=== PATIENT | female | born 1965 | race Caucasian/White ===

== ENCOUNTER 2017-09-02 00:11 | Inpatient (IN) ==
--- NOTE | 2017-09-02 00:31 | Emergency Department Report ---
General Adult HPI - General Chief complaint: Abdominal Pain Stated complaint: abd pain, bowel obstruction Time Seen by Provider: 09/02/17 00:29 Source: patient, family Mode of arrival: wheelchair Limitations: no limitations - History of Present Illness HPI narrative: 51-year-old female presents to the emergency department with a chief complaint of generalized upper abdominal discomfort. Patient was at home when her symptoms began around 4 PM. She denies trauma, travel, poorly prepared food, or recent antibiotic use. She describes the pain as severe. Pain is sharp. No radiation. She does not note any exacerbating or remitting factors. Patient does note history of similar symptoms in the past with small bowel obstruction. She was at home when her symptoms began. Symptoms have been persistent in nature since onset. No other complaints or associated symptoms at this time. - Related Data Home Medications Medication Instructions Recorded Confirmed Estrogens, Conjugated [Premarin] 0.625 mg PO DAILY #0 03/04/13 09/02/17 Bystolic (nebivolol) 5 mg tablet 5 mg PO DAILY tab 06/11/17 09/02/17 benazepril 5 mg tablet 20 mg PO DAILY tab 06/11/17 09/02/17 canagliflozin 100 mg tablet 300 mg PO QAM 06/11/17 09/02/17 Levofloxacin [Levaquin] 500 mg PO DAILY 09/02/17 09/02/17 predniSONE [Prednisone] 20 mg PO DAILY 09/02/17 09/02/17 Allergies Allergy/AdvReac Type Severity Reaction Status Date / Time latex Allergy Severe SWELLING Verified 06/11/17 13:49 hydrocodone Allergy Unknown ITCHING Verified 06/11/17 13:49 oxycodone AdvReac Intermediate VOMITS Verified 06/11/17 13:49 morphine AdvReac Unknown NAUSEA AND Verified 06/11/17 13:49 VOMITING Review of Systems Constitutional: Denies: fever, chills Eyes: Denies: eye pain, vision change ENT: Denies: ear pain, throat pain Cardiovascular: Denies: chest pain, palpitations Respiratory: Denies: cough, dyspnea Gastrointestinal: Reports: abdominal pain, nausea. Denies: vomiting, diarrhea Genitourinary: Denies: frequency, hematuria Musculoskeletal: Denies: back pain, arthralgia Integumentary: Denies: erythema, rash Neurological: Denies: headache, numbness Endocrine: Denies: polydipsia, polyuria Hematological/Lymphatic: Denies: easy bruising, lymphadenopathy Allergic/Immunologic: Denies: facial swelling, urticaria PFSH Patient Stated Medical History Hypertension Yes Diabetes Mellitus Type 2 Yes Post Menopausal Yes Now No Clinic Medical History (Last Updated 06/11/17 @ 13:54 by Kenia Rick RN) History of basal cell carcinoma (BCC) (Resolved Medical) Nasal tip: 2005 Left ala: 2013 High cholesterol (Chronic Medical) Arthritis (Chronic Medical) History of kidney stones (Chronic Medical) Hypertension (Chronic Medical) Surgical History: Hysterectomy: Staged for endometriosis. Oopherectomy. C- Section: 1984, 1989. Colectomy for diverticulitis: 2004. Excision BCC nasal tip: 2005. Breast Reductioin: 1983. Mohs excision BCC with bilobed flap closure, left ala: 03/10/2014 Family History: Family History (Last Updated 06/11/17 @ 13:58 by Kenia Rick RN) Mother Drug abuse Cancer Heart disease Hypertension Stroke High cholesterol Glaucoma Sister Drug abuse Hypertension High cholesterol Maternal Grandmother High cholesterol - Social History Smoking status: Never smoker Substance use type: does not use Alcohol intake frequency: does not drink Physical Exam - Limitations Limitations: no limitations - General General appearance: alert, in distress (Mild distress secondary to pain.) - Normal Exams: Head:: Normocephalic without trauma Eyes:: Pupils are PERRLA w/ EOMI, No scleral icterus, irritation, or foreign bodies noted ENMT:: No facial trauma, nasal exudates, pharyngeal erythema, or exudates are noted Dental: No fractured, loose, or missing teeth noted Neck:: Full range of motion, without adenopathy, JVD, bruits or thyromegaly Chest/Respirations:: Clear all de luna, with good airflow, and symmetry bilaterally Cardiovascular:: Regular rate and rhythm, without murmur or gallop, Pulses 2+ all extremities, capillary refill, <2 seconds all extremities Abdomen:: Bowel sounds positive (Soft. Generalized abdominal tenderness to palpation without rebound or guarding. NO CVAT. ), non-distended, no hepatosplenomegaly, masses or bruits noted Lymphatic:: No lymphadenopathy, or lymphedema noted Musculoskeletal:: No tenderness, or deformity noted, good range of motion, all extremities Integumentary:: No rashes, hives, or bruising noted, hair and nails, without abnormality Neurological:: Patient is alert, and oriented, cranial nerves, motor/sensory/ cerebellar, exams w/o gross deficits, to observation Psychiatric:: Patient exhibits, appropriate attention, emotion and affect Course Vital Signs Pulse Rate 68 09/02/17 00:16 Respiratory Rate 20 09/02/17 00:16 Blood Pressure 178/84 H 09/02/17 00:16 Pulse Oximetry 99 09/02/17 00:16 Temperature 98.5 F 09/02/17 04:13 Pulse Rate 71 09/02/17 04:13 Respiratory Rate 18 09/02/17 04:13 Blood Pressure 145/70 H 09/02/17 04:13 Pulse Oximetry 97 09/02/17 04:13 Medical Decision Making - [facility] Narrative Medical decision making narrative: Labs / imaging were discussed in detail with the patient and family and questions are answered. Patient was given 1 L normal saline intravenously. She was given parental narcotic and antiemetic medications with some improvement of symptoms. She was given Toradol 30 mg IV 1 with more improvement of symptoms. Patient declines nasogastric tube insertion. She is discussed with Dr. Bedolla of the hospitalist service and admitted to her service in improved condition. Dr. Bedolla will perform her own surgical consultation to Dr. Mendoza who is the patient's surgeon. Patient is in agreement with the current plan of management. She is admitted to the hospital in improved condition. No further orders from accepting or consulting physicians who were in agreement with the current plan of management. Temperature: 98.4 F. - Differential Diagnosis SBO, Pancreatitis, UTI, Metabolic disorder - Lab Data Result diagrams: 09/02/17 00:32 09/02/17 00:32 Lab Results 09/02/17 09/02/17 09/02/17 Range/Units 00:32 00:32 00:32 WBC 14.6 H (4.5-11.0) T/MM3 RBC 5.15 (4.00-5.20) M/MM3 Hgb 15.5 (12-16) GM/DL Hct 45.8 (36-46) % MCV 88.9 (80-100) UM3 MCH 30.1 (26-34) UUG MCHC 33.8 (31-37) GM/DL RDW Std Deviation 42.6 (36.9-50.2) FL Plt Count 363 (130-400) T/MM3 MPV 10.0 (9.4-12.4) UM3 Immature Gran % (Auto) 0.8 H (0.0-0.5) % Neut % (Auto) 60.0 (33-66) % Lymph % (Auto) 31.5 (23-45) % [place] % (Auto) 7.1 (0-9.0) % Eos % (Auto) 0.3 (0-4) % Baso % (Auto) 0.3 (0-2) % Neut # (Auto) 8.7 H (1.8-7.7) T/MM3 Lymph # (Auto) 4.6 (1-4.8) T/MM3 [place] # (Auto) 1.0 H (0-0.8) T/MM3 Eos # (Auto) 0.0 (0-0.5) T/MM3 Baso # (Auto) 0.1 (0-0.2) T/MM3 Abs Immat Gran (auto) 0.12 H (0.00-0.03) T/MM3 Turbidity < 20 (0-20) Sodium 145 H (134-144) MEQ/L Potassium 3.7 (3.6-5) MEQ/L Chloride 106 (98-107) MEQ/L Carbon Dioxide 24 (22-30) MEQ/L Anion Gap 15 (5-15) MEQ/L BUN 13.0 (7-17) MG/DL Creatinine 0.7 (0.7-1.2) MG/DL GFR Calculation 88 BUN/Creatinine Ratio 19 (6-26) RATIO Glucose 102 (65-110) MG/DL Calculated Osmolality 279 (261-280) MOSM/KG Calcium 9.6 (8.4-10.2) MG/DL Total Bilirubin 0.40 (0.20-1.30) MG/DL Icterus Index < 2 (0-7) AST 23 (14-36) U/L ALT 44 (9-52) U/L Alkaline Phosphatase 87 (38-126) U/L Troponin I < 0.012 (0-0.12) ng/ml Total Protein 7.6 (6.3-8.2) G/DL Albumin 4.7 (3.5-5.0) G/DL Globulin 2.9 (2.4-3.6) G/DL Albumin/Globulin Ratio 1.6 (1.1-2.2) RATIO Lipase 132 (23-300) U/L Specimen Hemolysis < 15 < 15 (0-25) Ur Collection Type Urine Color (YELLOW) Urine Clarity Urine pH (5.0-8.0) Ur Specific [place] (1.015-1.025) Urine Protein (NEGATIVE) Urine Glucose (UA) (NEGATIVE) Urine Ketones (NEGATIVE) Urine Occult Blood (NEGATIVE) Urine Nitrate (NEGATIVE) Urine Bilirubin (NEGATIVE) Urine Urobilinogen (NORMAL) EU/DL Ur Leukocyte Esterase (NEGATIVE) Urinalysis Comment 09/02/17 Range/Units 02:34 WBC (4.5-11.0) T/MM3 RBC (4.00-5.20) M/MM3 Hgb (12-16) GM/DL Hct (36-46) % MCV (80-100) UM3 MCH (26-34) UUG MCHC (31-37) GM/DL RDW Std Deviation (36.9-50.2) FL Plt Count (130-400) T/MM3 MPV (9.4-12.4) UM3 Immature Gran % (Auto) (0.0-0.5) % Neut % (Auto) (33-66) % Lymph % (Auto) (23-45) % [place] % (Auto) (0-9.0) % Eos % (Auto) (0-4) % Baso % (Auto) (0-2) % Neut # (Auto) (1.8-7.7) T/MM3 Lymph # (Auto) (1-4.8) T/MM3 [place] # (Auto) (0-0.8) T/MM3 Eos # (Auto) (0-0.5) T/MM3 Baso # (Auto) (0-0.2) T/MM3 Abs Immat Gran (auto) (0.00-0.03) T/MM3 Turbidity (0-20) Sodium (134-144) MEQ/L Potassium (3.6-5) MEQ/L Chloride (98-107) MEQ/L Carbon Dioxide (22-30) MEQ/L Anion Gap (5-15) MEQ/L BUN (7-17) MG/DL Creatinine (0.7-1.2) MG/DL GFR Calculation BUN/Creatinine Ratio (6-26) RATIO Glucose (65-110) MG/DL Calculated Osmolality (261-280) MOSM/KG Calcium (8.4-10.2) MG/DL Total Bilirubin (0.20-1.30) MG/DL Icterus Index (0-7) AST (14-36) U/L ALT (9-52) U/L Alkaline Phosphatase (38-126) U/L Troponin I (0-0.12) ng/ml Total Protein (6.3-8.2) G/DL Albumin (3.5-5.0) G/DL Globulin (2.4-3.6) G/DL Albumin/Globulin Ratio (1.1-2.2) RATIO Lipase (23-300) U/L Specimen Hemolysis (0-25) Ur Collection Type Urine, void-cc/notcc Urine Color Yellow (YELLOW) Urine Clarity Clear Urine pH 5.5 (5.0-8.0) Ur Specific [place] 1.015 (1.015-1.025) Urine Protein Negative (NEGATIVE) Urine Glucose (UA) 2+ A (NEGATIVE) Urine Ketones Negative (NEGATIVE) Urine Occult Blood Trace-lysed (NEGATIVE) Urine Nitrate Negative (NEGATIVE) Urine Bilirubin Negative (NEGATIVE) Urine Urobilinogen 0.2 (NORMAL) EU/DL Ur Leukocyte Esterase Negative (NEGATIVE) Urinalysis Comment Microscopic not ind. - Radiology Data CT ABD/PELVIS: Fatty liver. Rectosigmoid anastomotic sutures seen before. Fluid distention mid to distal small bowel with fecalization with depression very distal small bowel with apparent transition zone in the posterior pelvis. Similar to prior exam with small bowel obstruction. No mass. Questionable minimal thickening versus adhesion. - EKG Data EKG #1 EKG results narrative: Sinus bradycardia. 55 bpm. No STEMI. Disposition Clinical Impression: Small bowel obstruction Disposition: 02 To [facility] Condition: Improved Time of Disposition: 03:00 (Admit. Dr. Bedolla. ) - Seen By: physician
[2017-09-02] MEDS: SALINE FLUSH 10ml SYRINGE IVF PRN ×4 (00:32→04:26)
[2017-09-02] MEDS ORDERED: NS 1,000 ML IV ONE (00:38)
[2017-09-02] MEDS ORDERED: FentaNYL 100 MCG/2 ML INJECTION IVP ONE ×3 (00:38→04:19)
[2017-09-02] MEDS ORDERED: ONDANSETRON 4 MG/2 ML INJECTION IVP ONE ×2 (00:38→03:09)
--- OUTSIDE RECORDS SUMMARY | 2017-09-02 01:07 | External Medical Summary | Referral Summary ---
:1965 Author Organization [facility] Address [address] [place] [address] [place] [address] Care Team Providers Name Role Phone Jim Issa Primary Care Physician Encounter VC Date(s): 10/26/15 - 10/26/15 [facility] [place] [address] [place] Discharge Disposition: 01-Home or Self Care Attending Physician: Jim Issa MD Admitting Physician: Jim Issa MD Vital Signs Most recent to oldest [Reference Range]: 1 Blood Pressure [90-140/60-90 mmHg] 122/78 mmHg (10/26/15 2:05 PM) Problem List Condition Effective Dates Status Health Status Informant Abd pain, CT thickening of terminal 06/11/13 Resolved ileum(Confirmed) Acute sinusitis(Confirmed) Active Allergic rhinitis(Confirmed) Resolved Allergies(Confirmed) Resolved Angina(Confirmed) Resolved Chicken pox(Confirmed) Resolved Depression(Confirmed) Resolved Essential hypertension Active (disorder)(Confirmed) Pain in both feet(Confirmed) Active Hay fever(Confirmed) Resolved Hyperlipidemia(Confirmed) Resolved Hypertension(Confirmed) Resolved Incontinence(Confirmed) Resolved Insomnia(Confirmed) Resolved IBS (irritable bowel Active syndrome)(Confirmed) Chronic joint pain(Confirmed) Active Kidney stones(Confirmed) Resolved Menopausal symptoms(Confirmed) Resolved Obesity(Confirmed) Active patient Overweight(Confirmed) Resolved Sinus Infections(Confirmed) Resolved Skin cancer(Confirmed) Resolved Trigonitis(Confirmed) Resolved Allergies, Adverse Reactions, Alerts Substance Reaction Severity Status Latex1 Swelling Active morphine Nausea/Vomiting Active 1of eyes Medications Alocril 2% ophthalmic solution See Instructions, INSTILL ONE DROP TO EACH EYE TWICE A DAY, # 5 unknown unit, eRx: [facility] #[id number], INSTILL ONE DROP TO EACH EYE TWICE A DAY Start Date: 03/29/14 Status: OrderedLipitor 10 mg oral tablet See Instructions, TAKE ONE TABLET BY MOUTH DAILY, # 90 tabs, eRx: [facility] #[id number], TAKE ONETABLET BY MOUTH DAILY Start Date: 07/25/15 Status: OrderedLotrel 10 mg-20 mg oral capsule See Instructions, TAKE ONE CAPSULE BY MOUTH DAILY, # 90 caps, eRx: [facility] #[id number], TAKE ONE CAPSULE BY MOUTH DAILY Start Date: 08/17/15 Status: OrderedMiraLax oral powder for reconstitution 17 g, Oral, Daily, dissolve in water before taking, # 255 g, 0 Refill(s) Start Date: 10/10/15 Status: OrderedNeurontin 100 mg oral capsule 100 mg 1 caps, Oral, TID, # 90 caps, 2 Refill(s), Pharmacy: [facility] # [id number], 1 caps Oral TID Start Date: 10/26/15 Status: OrderedprednisoLONE 5 mg oral tablet 5 mg 1 tabs, Oral, Daily, # 30 tabs, 1 Refill(s), Pharmacy: [facility] # [id number], to start on 11/10/15, 1 tabs Oral Daily Start Date: 10/10/15 Status: OrderedpredniSONE 5 mg oral tablet See Instructions, 4 tabs oral daily x7 days, then 2 tabs oral daily x7 days, then 5mg oral daily, # 56 tabs, 0 Refill(s), Pharmacy: [facility] #[id number] , 4 tabs oral daily x7 days, then 2 tabs oraldaily x7 days, then 5mg oral daily Start Date: 10/10/15 Stop Date: 11/09/15 Status: OrderedPremarin 0.625 mg oral tablet See Instructions, TAKE ONE TABLET BY MOUTH DAILY, # 90 tabs, 1 Refill(s), eRx: [facility] #[id number], TAKE ONE TABLET BY MOUTH DAILY Start Date: 05/16/15 Status: OrderedProventil HFA 90 mcg/inh inhalation aerosol See Instructions, as needed for wheezing, 1 puffs Inhalation q4-6hr, # 1 Each, 2 Refill(s), Pharmacy: [facility] #[id number] Start Date: 07/09/14 Status: OrderedRhinocort Aqua 32 mcg/inh nasal spray See Instructions, SPRAY ONE SPRAY IN EACH NOSTRIL ONCE DAILY, # 8.6 sprays, eRx : [facility] #[id number], SPRAY ONE SPRAY IN EACH NOSTRIL ONCE DAILY Start Date: 09/13/15 Status: Ordered Results No data available for this section Immunizations No data available for this section Procedures Procedure Date Related Diagnosis Body Site Laparoscopic cholecystectomy1 07/22/14 Colonoscopy2 06/11/13 removal of ganglion cyst Rt foot3 03/04/12 Cystoscopy 05/06/09 RT Carpal tunnel release 01/26/09 Hysterectomy 1991 Breast reduction 1983 Appendectomy 1977 LT Carpal tunnel release 1Biliary [id number]/biopsy tubulovillous adenoma no Crohn's repeat [id number] Borja Social History Social History Type Response Smoking Status Never smoker Assessment and Plan No data available for this section
--- OUTSIDE RECORDS SUMMARY | 2017-09-02 01:07 | External Medical Summary | Referral Summary ---
:1965 Author [facility] Address [address] [place] [address] [place] [address] Care Team Providers Name Role Phone Jim Issa Primary Care Physician Encounter VC Date(s): 03/23/15 - 03/23/15 [facility] [place] [address] [place] Discharge Disposition: 01-Home or Self Care Attending Physician: Jim Issa MD Admitting Physician: Jim Issa MD Vital Signs Most recent to oldest [Reference Range]: 1 Blood Pressure [90-140/60-90 mmHg] 124/80 mmHg (03/23/15 1:07 PM) Problem List Condition Effective Dates Status Health Status Informant Abd pain, CT thickening of terminal 06/11/13 Resolved ileum(Confirmed) Acute sinusitis(Confirmed) Active Allergic rhinitis(Confirmed) Resolved Allergies(Confirmed) Resolved Angina(Confirmed) Resolved Chicken pox(Confirmed) Resolved Depression(Confirmed) Resolved Essential hypertension Active (disorder)(Confirmed) Hay fever(Confirmed) Resolved Hyperlipidemia(Confirmed) Resolved Hypertension(Confirmed) Resolved Incontinence(Confirmed) Resolved Insomnia(Confirmed) Resolved IBS (irritable bowel Active syndrome)(Confirmed) Kidney stones(Confirmed) Resolved Menopausal symptoms(Confirmed) Resolved Obesity(Confirmed) Active patient Overweight(Confirmed) Resolved Sinus Infections(Confirmed) Resolved Skin cancer(Confirmed) Resolved Trigonitis(Confirmed) Resolved Allergies, Adverse Reactions, Alerts Substance Reaction Severity Status Latex1 Swelling Active morphine Nausea/Vomiting Active 1of eyes Medications Alocril 2% ophthalmic solution See Instructions, INSTILL ONE DROP TO EACH EYE TWICE A DAY, # 5 unknown unit, eRx: [facility] #[id number], INSTILL ONE DROP TO EACH EYE TWICE A DAY Start Date: 03/29/14 Status: OrderedLasix 40 mg oral tablet See Instructions, TAKE ONE TABLET BY MOUTH EVERY DAY, # 90 tabs, 1 Refill(s), eRx: [facility] #[id number], TAKE ONE TABLET BY MOUTH EVERY DAY Start Date: 03/29/15 Status: OrderedLipitor 10 mg oral tablet See Instructions, TAKE ONE TABLET BY MOUTH DAILY, # 90 tabs, eRx: [facility] #[id number], TAKE ONETABLET BY MOUTH DAILY Start Date: 07/25/15 Status: OrderedLotrel 10 mg-20 mg oral capsule See Instructions, TAKE ONE CAPSULE BY MOUTH DAILY, # 90 caps, eRx: [facility] #[id number], TAKE ONE CAPSULE BY MOUTH DAILY Start Date: 08/17/15 Status: Orderedmeloxicam 7.5 mg oral tablet See Instructions, TAKE ONE TABLET BY MOUTH DAILY, # 90 tabs, 5 Refill(s), eRx: [facility] #[id number], TAKE ONE TABLET BY MOUTH DAILY Start Date: 01/17/15 Status: OrderedPremarin 0.625 mg oral tablet See Instructions, TAKE ONE TABLET BY MOUTH DAILY, # 90 tabs, 1 Refill(s), eRx: [facility] #[id number], TAKE ONE TABLET BY MOUTH DAILY Start Date: 05/16/15 Status: OrderedProventil HFA 90 mcg/inh inhalation aerosol See Instructions, as needed for wheezing, 1 puffs Inhalation q4-6hr, # 1 Each, 2 Refill(s), Pharmacy: [facility] #[id number] Start Date: 07/09/14 Status: OrderedRhinocort Aqua 32 mcg/inh nasal spray See Instructions, SPRAY ONE SPRAY IN EACH NOSTRIL ONCE DAILY, # 8.6 sprays, eRx : [facility] #[id number], SPRAY ONE SPRAY IN EACH NOSTRIL ONCE DAILY Start Date: 09/13/15 Status: OrderedTylenol PM See Instructions, as needed for sleep, 2 tabs at Bedtime (once a day), 0 Refill( s) Start Date: 04/21/15 Status: Ordered Results No data available for this section Immunizations No data available for this section Procedures Procedure Date Related Diagnosis Body Site Laparoscopic cholecystectomy1 07/22/14 Colonoscopy2 06/11/13 removal of ganglion cyst Rt foot3 03/04/12 Cystoscopy 05/06/09 RT Carpal tunnel release 01/26/09 Hysterectomy 1991 Breast reduction 1984 Appendectomy 1977 LT Carpal tunnel release 1Biliary sqgdviowfx7y/biopsy tubulovillous adenoma no Crohn's repeat [id number] Borja Social History Social History Type Response Smoking Status Never smoker Assessment and Plan Extracted from: Title: Ambulatory Patient Education Author: Jim Issa MD Date: Allergy Contact Dermatitis Contact dermatitis is a reaction to certain substances that touch the skin. Contact dermatitis can be either irritant contact dermatitis or allergic contact dermatitis. Irritant contact dermatitis does not require previous exposure to the substance for a reaction to occur. Allergic contact dermatitis only occurs if you have been exposed to the substance before. Upon a repeat exposure, your body reacts to the substance. CAUSES Many substances can cause contact dermatitis. Irritant dermatitis is most commonly caused by repeated exposure to mildly irritating substances, such as: Makeup. Soaps. Detergents. Bleaches. Acids. Metal salts, such as nickel. Allergic contact dermatitis is most commonly caused by exposure to: Poisonous plants. Chemicals (deodorants, shampoos). Jewelry. Latex. Neomycin in triple antibiotic cream. Preservatives in products, including clothing. SYMPTOMS The area of skin that is exposed may develop: Dryness or flaking. Redness. Cracks. Itching. Pain or a burning sensation. Blisters. With allergic contact dermatitis, there may also be swelling in areas such as the eyelids, mouth, or genitals. DIAGNOSIS Your caregiver can usually tell what the problem is by doing a physical exam. In cases where the cause is uncertain and an allergic contact dermatitis is suspected, a patch skin test may be performed to help determine the cause of your dermatitis. TREATMENT Treatment includes protecting the skin from further contact with the irritating substance by avoiding that substance if possible. Barrier creams, powders, and gloves may be helpful. Your caregiver may also recommend: Steroid creams or ointments applied 2 times daily. For best results, soak the rash area in cool water for 20 minutes. Then apply the medicine. Cover the area with a plastic wrap. You can store the steroid cream in the refrigerator for a "chilly" effect on your rash. That may decrease itching. Oral steroid medicines may be needed in more severe cases. Antibiotics or antibacterial ointments if a skin infection is present. Antihistamine lotion or an antihistamine taken by mouth to ease itching. Lubricants to keep moisture in your skin. Burow's solution to reduce redness and soreness or to dry a weeping rash. Mix one packet or tablet of solution in 2 cups cool water. Dip a clean washcloth in the mixture, wring it out a bit, and pu t it on the affected area. Leave the cloth in place for 30 minutes. Do this as often as possible throughout the day. Taking several cornstarch or baking soda baths daily if the area is too large to cover with a washcloth. Harsh chemicals, such as alkalis or acids, can cause skin damage that is like a burn. You should flush your skin for 15 to 20 minutes with cold water after such an exposure. You should also seek immedia te medical care after exposure. Bandages (dressings), antibiotics, and pain medicine may be needed for severely irritated skin. HOME CARE INSTRUCTIONS Avoid the substance that caused your reaction. Keep the area of skin that is affected away from hot water, soap, sunlight , chemicals, acidic substances, or anything else that would irritate your skin. Do not scratch the rash. Scratching may cause the rash to become infected. You may take cool baths to help stop the itching. Only take [id number] or prescription medicines as directed by your caregiver. See your caregiver for follow-up care as directed to make sure your skin is healing properly. SEEK MEDICAL CARE IF: Your condition is not better after 3 days of treatment. You seem to be getting worse. You see signs of infection such as swelling, tenderness, redness, soreness , or warmth in the affected area. You have any problems related to your medicines. Document Released: 06/21/2001 Document Revised: 09/15/2012 Document Reviewed: 11/27/2011 Exit[employer] Patient Information 2015 [email or web address]. This information is not intended to replace advice given to you by your health care provider. Make sure you discuss any questions you have with your health care provider. No follow up information was provided. Extracted from: Title: Office Visit Note Author: Jim Issa MD Date: 03/23/15 Assessment/Plan Acute contact dermatitis Clobetasol 0.05% Orders: clobetasol topical, 1 [facility], Topical, BID, Sparingly., # 30 g, 1 Refill (s), Pharmacy: [facility] #[id number]
--- OUTSIDE RECORDS SUMMARY | 2017-09-02 01:07 | External Medical Summary | Referral Summary ---
:1965 Author Organization [facility] Address [address] [place] [address] [place] [address] Care Team Providers Name Role Phone Jim Issa Primary Care Physician Encounter VC Date(s): 03/09/15 - 03/09/15 [facility] [address] [place] [phone] Discharge Diagnosis: Knee pain Discharge Disposition: 01-Home or Self Care Attending Physician: Jim Issa MD Admitting Physician: Jim Issa MD Vital Signs Most recent to oldest [Reference Range]: 1 Blood Pressure [90-140/60-90 mmHg] 124/76 mmHg (03/09/15 1:19 PM) Problem List Condition Effective Dates Status [...] # 5 unknown unit, eRx: [facility] #[id number], INSTILL ONE DROP TO EACH EYE TWICE A DAY Start Date: 03/29/14 Status: OrderedLasix 40 mg oral tablet See Instructions, TAKE ONE TABLET BY MOUTH EVERY DAY, # 90 tabs, 1 Refill(s), eRx: [facility] #[id number], TAKE ONE TABLET BY MOUTH EVERY DAY Start Date: 03/29/15 Status: OrderedLipitor 10 mg oral tablet See Instructions, TAKE ONE TABLET BY MOUTH DAILY, # 90 tabs, eRx: [facility] #[id number], TAKE ONETABLET BY MOUTH DAILY Start Date: 07/25/15 Status: OrderedLotrel 10 mg-20 mg oral capsule See Instructions, TAKE ONE CAPSULE BY MOUTH DAILY, # 90 caps, eRx: [facility] #[id number], TAKE ONE CAPSULE BY MOUTH DAILY Start Date: 08/17/15 Status: Orderedmeloxicam 7.5 mg oral tablet See Instructions, TAKE ONE TABLET BY MOUTH DAILY, # 90 tabs, 5 Refill(s), eRx: [facility] #[id number], TAKE ONE TABLET BY MOUTH DAILY Start Date: 01/17/15 Status: OrderedPremarin 0.625 mg oral tablet See Instructions, TAKE ONE TABLET BY MOUTH DAILY, # 90 tabs, 1 Refill(s), eRx: [facility] #[id number], TAKE ONE TABLET BY MOUTH DAILY Start Date: 05/16/15 Status: OrderedProventil HFA 90 mcg/inh inhalation aerosol See Instructions, as needed for wheezing, 1 puffs Inhalation q4-6hr, # 1 Each, 2 Refill(s), Pharmacy: [facility] #[id number] Start Date: 07/09/14 Status: OrderedRhinocort Aqua 32 mcg/inh nasal spray See Instructions, SPRAY ONE SPRAY IN EACH NOSTRIL ONCE DAILY, # 8.6 sprays, eRx : [facility] #[id number], SPRAY ONE SPRAY IN EACH NOSTRIL ONCE [...] Appendectomy 1977 LT Carpal tunnel release 1Biliary accvxbzlaf1e/biopsy tubulovillous adenoma no Crohn's repeat [id number] Borja Social History Social History Type Response Smoking Status Never smoker Assessment and Plan Extracted from: Title: Ambulatory Patient Education Author: Jim Issa MD Date: 03/14/15 Family Medicine Knee Pain The knee is the complex joint between your thigh and your lower leg. It is made up of bones, tendons, ligaments, and cartilage. The bones that make up the knee are: The femur in the thigh. The tibia and fibula in the lower leg. The patella or kneecap riding in the groove on the lower femur. CAUSES Knee pain is a common complaint with many causes. A few of these causes are: Injury, such as: A ruptured ligament or tendon injury. Torn cartilage. Medical conditions, such as: Gout Arthritis Infections Overuse, over training, or overdoing a physical activity. Knee pain can be minor or severe. Knee pain can accompany debilitating injury. Minor knee problems often respond well to self-care measures or get well on their own. More serious injuries may need medical intervention or even surgery. SYMPTOMS The knee is complex. Symptoms of knee problems can vary widely. Some of the problems are: Pain with movement and weight bearing. Swelling and tenderness. Buckling of the knee. Inability to straighten or extend your knee. Your knee locks and you cannot straighten it. Warmth and redness with pain and fever. Deformity or dislocation of the kneecap. DIAGNOSIS Determining what is wrong may be very straight forward such as when there is an injury. It can also be challenging because of the complexity of the knee. Tests to make a diagnosis may include: Your caregiver taking a history and doing a physical exam. Routine X-rays can be used to rule out other problems. X-rays will not reveal a cartilage tear. Some injuries of the knee can be diagnosed by: Arthroscopy a surgical technique by which a small video camera is inserted through tiny incisions on the sides of the knee. This procedure is used to examine and repair internal knee joint problems . Tiny instruments can be used during arthroscopy to repair the torn knee cartilage (meniscus). Arthrography is a radiology technique. A contrast liquid is directly injected into the knee joint. Internal structures of the knee joint then become visible on X-ray film. An MRI scan is a non X-ray radiology procedure in which magnetic de luna and a computer produce two- or three-dimensional images of the inside of the knee. Cartilage tears are often visible using an MRI scanner. MRI scans have largely replaced arthrography in diagnosing cartilage tears of the knee. Blood work. Examination of the fluid that helps to lubricate the knee joint (synovial fluid). This is done by taking a sample out using a needle and a syringe. TREATMENT The treatment of knee problems depends on the cause. Some of these treatments are: Depending on the injury, proper casting, splinting, surgery, or physical therapy care will be needed. Give yourself adequate recovery time. Do not overuse your joints. If you begin to get sore during workout routines, back off. Slow down or do fewer repetitions. For repetitive activities such as cycling or running, maintain your strength and nutrition. Alternate muscle groups. For example, if you are a weight telecommunicator, work the upper body on one day and the lower body the next. Either tight or weak muscles do not give the proper support for your knee. Tight or weak muscles do not absorb the stress placed on the knee joint. Keep the muscles surrounding the knee strong. Take care of mechanical problems. If you have flat feet, orthotics or special shoes may help. See your caregiver if you need help. Arch supports, sometimes with wedges on the inner or outer aspect of the heel, can help. These can shift pressure away from the side of the knee most bothered by osteoarthritis. A brace called an "diamond selector" brace also may be used to help ease the pressure on the most arthritic side of the knee. If your caregiver has prescribed crutches, braces, wraps or ice, use as directed. The acronym for this is STANFORD. This means protection, rest, ice, compression, and elevation. Nonsteroidal anti-inflammatory drugs (NSAIDs), can help relieve pain. But if taken immediately after an injury, they may actually increase swelling. Take NSAIDs with food in your stomach. Stop them if you develop stomach problems. Do not take these if you have a history of ulcers, stomach pain, or bleeding from the bowel. Do not take without your caregiver's approval if you have problems with flu id retention, heart failure, or kidney problems. For ongoing knee problems, physical therapy may be helpful. Glucosamine and chondroitin are pzwt-utr-epmfmzv dietary supplements. Both may help relieve the pain of osteoarthritis in the knee. These medicines are different from the usual anti-inflammatory dr ugs. Glucosamine may decrease the rate of cartilage destruction. Injections of a corticosteroid drug into your knee joint may help reduce the symptoms of an arthritis flare-up. They may provide pain relief that lasts a few months. You may have to wait a few paty hs between injections. The injections do have a small increased risk of infection, water retention, and elevated blood sugar levels. Hyaluronic acid injected into damaged joints may ease pain and provide lubrication. These injections may work by reducing inflammation. A series of shots may give relief for as long as 6 months. Topical painkillers. Applying certain ointments to your skin may help relieve the pain and stiffness of osteoarthritis. Ask your pharmacist for suggestions. Many over the-counter products are approved for temporary relief of arthritis pain. In some countries, doctors often prescribe topical NSAIDs for relief of chronic conditions such as arthritis and tendinitis. A review of treatment with NSAID creams found that they worked as well a s oral medications but without the serious side effects. PREVENTION Maintain a healthy weight. Extra pounds put more strain on your joints. Get strong, stay limber. Weak muscles are a common cause of knee injuries. Stretching is important. Include flexibility exercises in your workouts. Be smart about exercise. If you have osteoarthritis, chronic knee pain or recurring injuries, you may need to change the way you exercise. This does not mean you have to stop being active. If your knees ache after jogging or playing basketball, consider switching to swimming , water aerobics, or other low-impact activities, at least for a few days a week. Sometimes limiting high-impact activities will provide relief. Make sure your shoes fit well. Choose footwear that is right for your sport. Protect your knees. Use the proper gear for knee-sensitive activities. Use kneepads when playing volleyball or laying carpet. Buckle your seat belt every time you drive. Most shattered kneecaps occur in car accidents. Rest when you are tired. SEEK MEDICAL CARE IF: You have knee pain that is continual and does not seem to be getting better. SEEK IMMEDIATE MEDICAL CARE IF: Your knee joint feels hot to the touch and you have a high fever. MAKE SURE YOU: Understand these instructions. Will watch your condition. Will get help right away if you are not doing well or get worse. Document Released: 04/20/2008 Document Revised: 09/15/2012 Document Reviewed: 04/20/2008 ExitCare Patient Information [address] [facility]. This information is not intended to replace advice given to you by your health care provider. Make sure you discuss any questions you have with your health care provider. Heat Therapy Heat therapy can help ease achy, tense, stiff, and tight muscles and joints. Heat should not be used on new injuries. Wait at least 48 hours after the injury before using heat therapy. Heat also should not be used for discomfort or pain that occurs right after doing an activity. If you still have pain or stiffness 3 hours after finishing the activity, then heat therapy may be used. PRECAUTIONS High heat or prolonged exposure to heat can cause rivas. Be careful when using heat therapy to avoid burning your skin. If you have any of the following conditions, do not use heat until you have discussed heat therapy with your caregiver: Poor circulation. Healing wounds or scarred skin in the area being treated. Diabetes, heart disease, or high blood pressure. Numbness of the area being treated. Unusual swelling of the area being treated. Active infections. Blood clots. Cancer. Inability to communicate your response to pain. This can include young children and people with dementia. HOME CARE INSTRUCTIONS Moist heat pack Soak a clean towel in warm water, and squeeze out the extra water. The water temperature should be comfortable to the skin. Put the warm, wet towel in a plastic bag. Place a thin, dry towel between your skin and the bag. Put the heat pack on the area for 5 minutes, and check your skin. Your skin may be pink, but it should not be red. Leave the heat pack on the area for a total of 15 to 30 minutes. Repeat this every 2 to 4 hours while awake. Do not use heat while you are sleeping. Warm water bath Fill a tub with warm water. The water temperature should be comfortable to the skin. Place the affected body part in the tub. Soak the area for 20 to 40 minutes. Repeat as needed. Hot water bottle Fill the water bottle half full with hot water. Press out the extra air. Close the cap tightly. Place a dry towel between your skin and the bottle. Put the bottle on the area for 5 minutes, and check your skin. Your skin may be pink, but it should not be red. Leave the bottle on the area for a total of 15 to 30 minutes. Repeat this every 2 to 4 hours while awake. Electric heating pad Place a dry towel between your skin and the heating pad. Set the heating pad on low heat. Put the heating pad on the area for 10 minutes, and check your skin. Your skin may be pink, but it should not be red. Leave the heating pad on the area for a total of 20 to 40 minutes. Repeat this every 2 to 4 hours while awake. Do not lie on the heating pad. Do not fall asleep while using the heating pad. Do not use the heating pad near water. Contact with water can result in an electrical shock. SEEK MEDICAL CARE IF: You have blisters, redness, swelling, or numbness. You have any new problems. Your problems are getting worse. You have any questions or concerns. If you develop any problems, stop using heat therapy until you see your caregiver. MAKE SURE YOU: Understand these instructions. Will watch your condition. Will get help right away if you are not doing well or get worse. Document Released: 09/15/2012 Document Reviewed: 09/15/2012 ExitCare Patient Information 2015 [facility] [place]. This information is not intended to replace advice given to you by your health care provider. Make sure you discuss any questions you have with your health care provider. No follow up information was provided. Extracted from: Title: Office Visit Note Author: Jim Issa MD Date: 03/09/15 Assessment/Plan Knee pain Will set patient up for a MRI of the knee to rule out a torn meniscus. Ordered: Office Visit Level 3 Est 05706
--- OUTSIDE RECORDS SUMMARY | 2017-09-02 01:08 | External Medical Summary | Referral Summary ---
:1965 Author Organization [facility] Address [address] [place] [address] Care Team Providers Name Role Phone Issa Jim Suarez Primary Care Physician Encounter VC Date(s): 05/07/16 - 05/07/16 [facility] [address] [place] [address]- [place] Discharge Diagnosis: Status post right foot surgery Discharge Disposition: 01-Home or Self Care Attending Physician: Morgan Borja DPM Admitting Physician: Morgan Borja DPM Vital Signs Most recent to oldest [Reference Range]: 1 Respiratory Rate [14-20 br/min] 18 br/min (05/07/16 8:50 AM) Problem List Condition Effective Dates Status Health Status Informant Abd pain, CT thickening of terminal 06/11/13 Resolved ileum(Confirmed) Acute sinusitis(Confirmed) Active Allergic rhinitis(Confirmed) Resolved Allergies(Confirmed) Resolved Angina(Confirmed) Resolved Chicken pox(Confirmed) Resolved Depression(Confirmed) Resolved Essential hypertension Active (disorder)(Confirmed) Pain in both feet(Confirmed) Active Status post right foot Active surgery(Confirmed) Hay fever(Confirmed) Resolved Hyperlipidemia(Confirmed) Resolved Hypertension(Confirmed) Resolved Incontinence(Confirmed) Resolved Insomnia(Confirmed) Resolved IBS (irritable bowel Active syndrome)(Confirmed) Chronic joint pain(Confirmed) Active Kidney stones(Confirmed) Resolved Menopausal symptoms(Confirmed) Resolved Obesity(Confirmed) Active patient Overweight(Confirmed) Resolved Plantar fasciitis of right Active foot(Confirmed) Sinus Infections(Confirmed) Resolved Skin cancer(Confirmed) Resolved Trigonitis(Confirmed) Resolved Greater trochanteric bursitis of Active left hip(Confirmed) Allergies, Adverse Reactions, Alerts Substance Reaction Severity Status HYDROcodone Itching Active Latex1, 2 Swelling Active morphine Nausea/Vomiting Active 1latex rast test equals [id number] eyes Medications Alocril 2% ophthalmic solution See Instructions, INSTILL ONE DROP TO EACH EYE TWICE A DAY, # 5 unknown unit, eRx: [facility] #[id number], INSTILL ONE DROP TO EACH EYE TWICE A DAY Start Date: 03/31/16 Status: OrderedamLODIPine-benazepril 10 mg-20 mg oral capsule See Instructions, TAKE ONE CAPSULE BY MOUTH DAILY, # 90 caps, 1 Refill(s), eRx: [facility] #[id number], TAKE ONE CAPSULE BY MOUTH DAILY Start Date: 11/17/15 Status: Orderedatorvastatin 10 mg oral tablet See Instructions, TAKE ONE TABLET BY MOUTH DAILY, # 90 tabs, eRx: [facility] #[id number], TAKE ONETABLET BY MOUTH DAILY Start Date: 04/24/16 Status: OrderedDilaudid 2 mg, Oral, QID, as needed for pain, 0 Refill(s) Start Date: 04/17/16 Status: Orderedglimepiride 2 mg oral tablet See Instructions, TAKE ONE TABLET BY MOUTH TWICE A DAY, # 60 tabs, eRx: [facility] #[id number], TAKE ONE TABLET BY MOUTH TWICE A DAY Start Date: 04/06/16 Status: Orderedibuprofen 800 mg oral tablet 800 mg 1 tabs, Oral, BID, with food or milk, # 60 tabs, 2 Refill(s), Pharmacy: [facility] #[id number], 1 tabs Oral BID,Instr:with food or milk Start Date: 11/15/15 Status: OrderedLasix 40 mg oral tablet 40 mg 1 tabs, Oral, BID, # 60 tabs, 2 Refill(s), Pharmacy: [facility] # [id number], 1 tabs Oral BID Start Date: 02/03/16 Status: Orderedmetoclopramide 10 mg oral tablet 10 mg 1 tabs, Oral, QIDACHS, 0 Refill(s) Start Date: 04/17/16 Status: OrderedMiraLax oral powder for reconstitution 17 g, Oral, Daily, dissolve in water before taking, # 255 g, 0 Refill(s) Start Date: 10/10/15 Status: OrderedNasonex 50 mcg/inh nasal spray 2 sprays, Nasal, Bedtime (once a day), # 17 g, 2 Refill(s), Pharmacy: [facility] #[id number] Start Date: 02/28/16 Status: OrderedNorco 7.5 mg-325 mg oral tablet 1 tabs, Oral, q6hr, as needed for pain, # 30 tabs, 0 Refill(s) Start Date: 04/26/16 Status: OrderedPremarin 0.625 mg oral tablet See Instructions, TAKE ONE TABLET BY MOUTH DAILY, # 90 tabs, eRx: [facility] #[id number], TAKE ONETABLET BY MOUTH DAILY Start Date: 02/20/16 Status: OrderedProventil HFA 90 mcg/inh inhalation aerosol See Instructions, as needed for wheezing, 1 puffs Inhalation q4-6hr, # 1 Each, 2 Refill(s), Pharmacy: [facility] #[id number] Start Date: 07/09/14 Status: OrderedTylenol Extra Strength mg, Oral, q6hr, 0 Refill(s) Start Date: 11/15/15 Status: Ordered Results No data available for this section Immunizations No data available for this section Procedures Procedure Date Related Diagnosis Body Site Endoscopic plantar fasciotomy1 04/26/16 Laparoscopic cholecystectomy2 07/22/14 Colonoscopy3 06/11/13 removal of ganglion cyst Rt foot4 03/04/12 Cystoscopy 05/06/09 RT Carpal tunnel release 01/26/09 Hysterectomy 1990 Breast reduction 1983 Appendectomy 1977 LT Carpal tunnel release 1DOS 04/26/16 GP 42 days 06/08/16 R [id number] vtesrfanoa7j/biopsy tubulovillous adenoma no Crohn's repeat [id number] Borja Social History Social History Type Response Smoking Status Never smoker Assessment and Plan Extracted from: Title: Office Visit Note Author: Morgan Borja DPHarleen Date: 05/07/16 Assessment/Plan 1.Status post right foot surgery Status post right foot endoscopic plantar fasciotomy, 04/26/16. No sign of infection noted. Sutures are removed today. Applied benzoin tincture and Steri-Stripsacross the incisional site. Due to back pain from wearing Cam Walker, patient was givenheel lift that she can wearin her left shoeto offset height difference. Advised patient that I would like her to wear cam walker at least next 2 weeks. Follow-up in 3 weeks.
--- OUTSIDE RECORDS SUMMARY | 2017-09-02 01:08 | External Medical Summary | Referral Summary ---
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 Discharge Diagnosis: Bilateral plantar fasciitis Discharge Disposition: 01-Home or Self Care Attending Physician: Morgan Borja DPM Admitting Physician: Morgan Borja DPM Vital Signs No data available for this section Problem List Condition Effective Dates Status Health [...] # 5 unknown unit, eRx: [facility] #[id number], INSTILL ONE DROP TO EACH EYE TWICE A DAY Start Date: 03/29/14 Status: OrderedLasix 40 mg oral tablet See Instructions, TAKE ONE TABLET BY MOUTH EVERY DAY, # 90 tabs, 1 Refill(s), eRx: [facility] #[id number], TAKE ONE TABLET BY MOUTH EVERY DAY Start Date: 03/29/15 Status: OrderedLipitor 10 mg oral tablet See Instructions, TAKE ONE TABLET BY MOUTH DAILY, # 90 tabs, eRx: [facility] #[id number], TAKE ONETABLET BY MOUTH DAILY Start Date: 07/25/15 Status: OrderedLotrel 10 mg-20 mg oral capsule See Instructions, TAKE ONE CAPSULE BY MOUTH DAILY, # 90 caps, eRx: [facility] #[id number], TAKE ONE CAPSULE BY MOUTH DAILY Start Date: 08/17/15 Status: Orderedmeloxicam 7.5 mg oral tablet See Instructions, TAKE ONE TABLET BY MOUTH DAILY, # 90 tabs, 5 Refill(s), eRx: [facility] #[id number], TAKE ONE TABLET BY MOUTH DAILY Start Date: 01/17/15 Status: OrderedPremarin 0.625 mg oral tablet See Instructions, TAKE ONE TABLET BY MOUTH DAILY, # 90 tabs, 1 Refill(s), eRx: [facility] #[id number], TAKE ONE TABLET BY MOUTH DAILY Start Date: 05/16/15 Status: OrderedProventil HFA 90 mcg/inh inhalation aerosol See Instructions, as needed for wheezing, 1 puffs Inhalation q4-6hr, # 1 Each, 2 Refill(s), Pharmacy: [facility] #[id number] Start Date: 07/09/14 Status: OrderedRhinocort Aqua 32 mcg/inh nasal spray See Instructions, SPRAY ONE SPRAY IN EACH NOSTRIL ONCE DAILY, # 8.6 sprays, eRx : [facility] #[id number], SPRAY ONE SPRAY IN EACH NOSTRIL ONCE DAILY Start Date: 09/13/15 Status: OrderedTylenol PM See Instructions, as needed for sleep, 2 tabs at Bedtime (once a day), 0 Refill( s) Start Date: 04/21/15 Status: Ordered Results No data available for this section Immunizations No data available for this section Procedures Procedure Date Related Diagnosis Body Site Injection(s), anesthetic agent and/or steroid, 03/28/15 plantar common digital nerve(s) (eg, Myers's neuroma).. Injection(s), anesthetic agent and/or steroid, 03/28/15 plantar common digital nerve(s) (eg, Myers's neuroma).. Injection(s), anesthetic agent and/or steroid, 03/28/15 plantar common digital nerve(s) (eg, Myers's neuroma).. Injection(s); single tendon sheath, or ligament, 03/28/15 aponeurosis (eg, plantar "fascia") Injection(s); single tendon sheath, or ligament, 03/28/15 aponeurosis (eg, plantar "fascia") Injection(s); single tendon sheath, or ligament, 03/28/15 aponeurosis (eg, plantar "fascia") Laparoscopic cholecystectomy1 07/22/14 Colonoscopy2 06/11/13 removal of ganglion cyst Rt foot3 03/04/12 Cystoscopy 05/06/09 RT Carpal tunnel release 01/26/09 Hysterectomy 1990 Breast reduction 1983 Appendectomy 1977 LT Carpal tunnel release 1Biliary xzpdhuscbe3y/biopsy tubulovillous adenoma no Crohn's repeat [id number] Borja Social History Social History Type Response Smoking Status Never smoker Assessment and Plan Extracted from: Title: Office Visit Note Author: Morgan Borja DPHarleen Date: 03/28/15 Assessment/Plan Bilateral plantar fasciitis The patient opted for cortisone injection of heel bilateral feet today. We discussed possible side effects of injection; spiking of sugar level, rupture of soft tissue stru ctures with high impact exercise activity, atrophy of fat pad with repeated injections, and discoloration at the injection site. After Betadine prep to the maximal point of tenderness of the heel, 1.0 ml of 0.25 % Marcaine and 2.0 ml of Kenalog was injected into the heel bilaterally. The patient was instructed to ice the injection today and avoid exercising next few days. Follow up if condition worsens. 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 After Betadine prep to the dorsal surface of third interspace of LEFTfoot, 0.5 ml of 1% Marcaine plai n with 1.0 ml of dexamethasone phosphate was injected. The patient is to ice the injection site today. Patient was provided with metatarsal pad. Follow-up if condition worsens.
--- OUTSIDE RECORDS SUMMARY | 2017-09-02 01:08 | External Medical Summary | Referral Summary ---
:1965 Author [facility] Address [address] [place] [address] [place] [address] Care Team Providers Name Role Phone Jim Issa Primary Care Physician Encounter VC Date(s): 10/10/15 - 10/10/15 [facility] [address] [place] [address] Discharge Disposition: 01-Home or Self Care Attending Physician: Jim Issa MD Admitting Physician: Jim Issa MD Vital Signs Most recent to oldest [Reference Range]: 1 Blood Pressure [90-140/60-90 mmHg] 132/84 mmHg (10/10/15 8:52 AM) Problem List Condition Effective Dates Status [...] # 5 unknown unit, eRx: [facility] #[id number], INSTILL ONE DROP TO EACH EYE TWICE A DAY Start Date: 03/29/14 Status: Orderedamoxicillin 875 mg oral tablet 875 mg 1 tabs, Oral, BID, X 10 days, # 20 tabs, 0 Refill(s), Pharmacy: [facility] #[id number], 1 tabs Oral BID,x10 days Start Date: 10/10/15 Stop Date: 10/20/15 Status: OrderedLipitor 10 mg oral tablet See Instructions, TAKE ONE TABLET BY MOUTH DAILY, # 90 tabs, eRx: [facility] #[id number], TAKE ONETABLET BY MOUTH DAILY Start Date: 07/25/15 Status: OrderedLotrel 10 mg-20 mg oral capsule See Instructions, TAKE ONE CAPSULE BY MOUTH DAILY, # 90 caps, eRx: [facility] #[id number], TAKE ONE CAPSULE BY MOUTH DAILY Start Date: 08/17/15 Status: Orderedmeloxicam 7.5 mg oral tablet See Instructions, TAKE ONE TABLET BY MOUTH DAILY, # 90 tabs, 5 Refill(s), eRx: [facility] #[id number], TAKE ONE TABLET BY MOUTH DAILY Start Date: 01/17/15 Status: OrderedMiraLax oral powder for reconstitution 17 g, Oral, Daily, dissolve in water before taking, # 255 g, 0 Refill(s) Start Date: 10/10/15 Status: OrderedprednisoLONE 5 mg oral tablet 5 mg 1 tabs, Oral, Daily, # 30 tabs, 1 Refill(s), Pharmacy: [facility] # [id number], to start on 11/10/15, 1 tabs Oral Daily Start Date: 10/10/15 Status: OrderedpredniSONE 5 mg oral tablet See Instructions, 4 tabs oral daily x7 days, then 2 tabs oral daily x7 days, then 5mg oral daily, # 56 tabs, 0 Refill(s), Pharmacy: [facility] #[id number] , 4 tabs oral daily x7 days, then 2 tabs oraldaily x7 days, then 5mg oral daily Start Date: 10/10/15 Stop Date: 11/09/15 Status: OrderedPremarin 0.625 mg oral tablet See Instructions, TAKE ONE TABLET BY MOUTH DAILY, # 90 tabs, 1 Refill(s), eRx: [facility] #[id number], TAKE ONE TABLET BY MOUTH DAILY Start Date: 05/16/15 Status: OrderedProventil HFA 90 mcg/inh inhalation aerosol See Instructions, as needed for wheezing, 1 puffs Inhalation q4-6hr, # 1 Each, 2 Refill(s), Pharmacy: [facility] #[id number] Start Date: 07/09/14 Status: OrderedRhinocort Aqua 32 mcg/inh nasal spray See Instructions, SPRAY ONE SPRAY IN EACH NOSTRIL ONCE DAILY, # 8.6 sprays, eRx : [facility] #[id number], SPRAY ONE SPRAY IN EACH NOSTRIL ONCE DAILY Start Date: 09/13/15 Status: Ordered Results Hematology Most recent to oldest [Reference Range]: 1 WBC [4.8-10.8 10*3/uL] 9.3 10*3/uL (10/10/15 9:33 AM) RBC [4.00-5.20] 4.84 (10/10/15 9:33 AM) Hgb [12.0-16.0 gm/dL] 14.1 gm/dL (10/10/15 9:33 AM) Hct [37.0-47.0 %] 42.5 % (10/10/15 9:33 AM) MCV [82.0-99.0 fL] 87.8 fL (10/10/15 9:33 AM) MCH [27.0-32.0 pg] 29.1 pg (10/10/15 9:33 AM) MCHC [32.0-36.0 gm/dL] 33.2 gm/dL (10/10/15 9:33 AM) RDW [11.5-14.5 %] 13.3 % (10/10/15 9:33 AM) Platelet [150-400 10*3/uL] 299 10*3/uL (10/10/15 9:33 AM) MPV [8.8-14.8 fL] 9.5 fL (10/10/15 9:33 AM) Immature Granulocytes [0.0-1.0 %] 0.4 % (10/10/15 9:33 AM) Neutrophils [51-75 %] 61 % (10/10/15 9:33 AM) Lymphocytes [20-46 %] 25 % (10/10/15 9:33 AM) Monocytes [4-11 %] 11 % (10/10/15 9:33 AM) Eosinophils [0-4 %] 1 % (10/10/15 9:33 AM) Basophils [0-2 %] 1 % (10/10/15 9:33 AM) Neutro Absolute [1.90-7.00 10*3] 5.68 10*3 (10/10/15 9:33 AM) Lymph Absolute [0.80-3.30 10*3] 2.34 10*3 (10/10/15 9:33 AM) Aiken Absolute [0.30-1.00 10*3] 1.01 10*3 *HI* (10/10/15 9:33 AM) Eos Absolute [0.00-0.50 10*3] 0.11 10*3 (10/10/15 9:33 AM) Baso Absolute [0.00-0.20 10*3] 0.08 10*3 (10/10/15 9:33 AM) Sed Rate [0-23] 9 (10/10/15 9:33 AM) Chemistry Most recent to oldest [Reference Range]: 1 Sodium Lvl [135-144 mEq/L] 141 mEq/L (10/10/15:33 AM) Potassium Lvl [3.5-5.2 mEq/L] 3.9 mEq/L (10/10/15 9:33 AM) Chloride [99-111 mEq/L] 105 mEq/L (10/10/15 9:33 AM) CO2 [22-31 mEq/L] 27 mEq/L (10/10/15 9:33 AM) AGAP [3-20] 9 (10/10/15:33 AM) BUN [10-20 mg/dL] 13 mg/dL (10/10/15 9:33 AM) Glucose Lvl [70-99 mg/dL] 103 mg/dL *HI* (10/10/15 9:33 AM) Creatinine Lvl [0.57-1.11 mg/dL] 0.62 mg/dL (10/10/15 9:33 AM) eGFR [>60 mL/min] >60 mL/min 1 (10/10/15 9:33 AM) Calcium Lvl [8.9-10.5 mg/dL] 9.3 mg/dL (10/10/15 9:33 AM) Albumin Lvl [3.5-5.0 gm/dL] 4.1 gm/dL (10/10/15 9:33 AM) Total Protein [6.4-8.3 gm/dL] 6.3 gm/dL *LOW* (10/10/15 9:33 AM) Globulin [1.8-4.0 gm/dL] 2.2 gm/dL (10/10/15 9:33 AM) ALT [0-55 U/L] 18 U/L (10/10/15 9:33 AM) AST [5-34 U/L] 14 U/L (10/10/15 9:33 AM) Alk Phos [40-150 U/L] 99 U/L (10/10/15 9:33 AM) Bili Total [0.2-1.2 mg/dL] 0.4 mg/dL (10/10/15 9:33 AM) Uric Acid [2.6-6.0 mg/dL] 3.8 mg/dL (10/10/15 9:33 AM) Chol [0-199 mg/dL] 157 mg/dL (10/10/15 9:33 AM) Trig [0-149 mg/dL] 115 mg/dL (10/10/15 9:33 AM) HDL [40-84 mg/dL] 59 mg/dL (10/10/15 9:33 AM) LDL [0-130 mg/dL] 75 mg/dL (10/10/15 9:33 AM) VLDL Cholesterol [0-28 mg/dL] 23 mg/dL (10/10/15 9:33 AM) Cardiac Risk [0.0-5.0] 2.7 (10/10/15 9:33 AM) 1Result Comment: Multiply eGFR results by 1.21 for race. Immunizations No data available for this section Procedures Procedure Date Related Diagnosis Body Site Collection of venous blood by venipuncture 10/10/15 Laparoscopic cholecystectomy1 07/22/14 Colonoscopy2 06/11/13 removal of ganglion cyst Rt foot3 03/04/12 Cystoscopy 05/06/09 RT Carpal tunnel release 01/26/09 Hysterectomy 1991 Breast reduction 1983 Appendectomy 1977 LT Carpal tunnel release 1Biliary tncgwcgwmw3t/biopsy tubulovillous adenoma no Crohn's repeat [id number] Borja Social History Social History Type Response Smoking Status Never smoker Assessment and Plan Extracted from: Title: Ambulatory Patient Education Author: Jim Issa MD Date: 10/10/15 Allergy Allergic Rhinitis Allergic rhinitis is when the mucous membranes in the nose respond to allergens. Allergens are particles in the air that cause your body to have an allergic reaction. This causes you to release allergic antibodies. Through a chain of events, these eventually cause you to release histamine into the blood stream. Although meant to protect the body, it is this release of histamine that causes your discom fort, such as frequent sneezing, congestion, and an itchy, runny nose. CAUSES Seasonal allergic rhinitis (hay fever) is caused by pollen allergens that may come from grasses, trees, and weeds. Year-round allergic rhinitis (perennial allergic rhinitis) is caused by allergens such as house dust mites, pet dander, and mold spores. SYMPTOMS Nasal stuffiness (congestion). Itchy, runny nose with sneezing and tearing of the eyes. DIAGNOSIS Your health care provider can help you determine the allergen or allergens that trigger your symptoms. If you and your health care provider are unable to determine the allergen, skin or blood testing ma y be used. Your health care provider will diagnose your condition after taking your health history and performing a physical exam. Your health care provider may assess you for other related conditions, such as asthma, pink eye, or an ear infection. TREATMENT Allergic rhinitis does not have a cure, but it can be controlled by: Medicines that block allergy symptoms. These may include allergy shots, nasal sprays, and oral antihistamines. Avoiding the allergen. Hay fever may often be treated with antihistamines in pill or nasal spray forms. Antihistamines block the effects of histamine. There are over-the- counter medicines that may help with nasal congestion a nd swelling around the eyes. Check with your health care provider before taking or giving this medicine. If avoiding the allergen or the medicine prescribed do not work, there are many new medicines your health care provider can prescribe. Stronger medicine may be used if initial measures are ineffective. Desensitizing injections can be used if medicine and avoidance does not work. Desensitization is when a patient is given ongoing shots until the body becomes less sensitive to the allergen. Make sure yo u follow up with your health care provider if problems continue. HOME CARE INSTRUCTIONS It is not possible to completely avoid allergens, but you can reduce your symptoms by taking steps to limit your exposure to them. It helps to know exactly what you are allergic to so that you can avoid your specific triggers. SEEK MEDICAL CARE IF: You have a fever. You develop a cough that does not stop easily (persistent). You have shortness of breath. You start wheezing. Symptoms interfere with normal daily activities. This information is not intended to replace advice given to you by your health care provider. Make sure you discuss any questions you have with your health care provider. Document Released: 03/19/2002 Document Revised: 04/12/2015 Document Reviewed: 03/01/2014 [facility] Patient Information 2015 [employer]. Sinusitis, Adult Sinusitis is redness, soreness, and inflammation of the paranasal sinuses. Paranasal sinuses are air pockets within the bones of your face. They are located beneath your eyes, in the middle of your fore head, and above your eyes. In healthy paranasal sinuses, mucus is able to drain out, and air is able to circulate through them by way of your nose. However, when your paranasal sinuses are inflamed, muc us and air can become trapped. This can allow bacteria and other germs to grow and cause infection. Sinusitis can develop quickly and last only a short time (acute) or continue over a long period (chronic). Sinusitis that lasts for more than 12 weeks is considered chronic. CAUSES Causes of sinusitis include: Allergies. Structural abnormalities, such as displacement of the cartilage that separates your nostrils (deviated septum), which can decrease the air flow through your nose and sinuses and affect sinus drainage. Functional abnormalities, such as when the small hairs (cilia) that line your sinuses and help remove mucus do not work properly or are not present. SIGNS AND SYMPTOMS Symptoms of acute and chronic sinusitis are the same. The primary symptoms are pain and pressure around the affected sinuses. Other symptoms include: Upper toothache. Earache. Headache. Bad breath. Decreased sense of smell and taste. A cough, which worsens when you are lying flat. Fatigue. Fever. Thick drainage from your nose, which often is green and may contain pus (purulent). Swelling and warmth over the affected sinuses. DIAGNOSIS Your health care provider will perform a physical exam. During your exam, your health care provider may perform any of the following to help determine if you have acute sinusitis or chronic sinusitis: Look in your nose for signs of abnormal growths in your nostrils (nasal polyps). Tap over the affected sinus to check for signs of infection. View the inside of your sinuses using an imaging device that has a light attached (endoscope). If your health care provider suspects that you have chronic sinusitis, one or more of the following tests may be recommended: Allergy tests. Nasal culture. A sample of mucus is taken from your nose, sent to a lab , and screened for bacteria. Nasal cytology. A sample of mucus is taken from your nose and examined by your health care provider to determine if your sinusitis is related to an allergy. TREATMENT Most cases of acute sinusitis are related to a viral infection and will resolve on their own within 10 days. Sometimes, medicines are prescribed to help relieve symptoms of both acute and chronic sinusi tis. These may include pain medicines, decongestants, nasal steroid sprays, or saline sprays. However, for sinusitis related to a bacterial infection, your health care provider will prescribe antibiotic medicines. These are medicines that will help kill the bacteria causing the infection. Rarely, sinusitis is caused by a fungal infection. In these cases, your health care provider will prescribe antifungal medicine. For some cases of chronic sinusitis, surgery is needed. Generally, these are cases in which sinusitis recurs more than 3 times per year, despite other treatments. HOME CARE INSTRUCTIONS Drink plenty of water. Water helps thin the mucus so your sinuses can drain more easily. Use a humidifier. Inhale steam 34 times a day (for example, sit in the bathroom with the shower running). Apply a warm, moist washcloth to your face 34 times a day, or as directed by your health care provider. Use saline nasal sprays to help moisten and clean your sinuses. Take medicines only as directed by your health care provider. If you were prescribed either an antibiotic or antifungal medicine, finish it all even if you start to feel better. SEEK IMMEDIATE MEDICAL CARE IF: You have increasing pain or severe headaches. You have nausea, vomiting, or drowsiness. You have swelling around your face. You have vision problems. You have a stiff neck. You have difficulty breathing. This information is not intended to replace advice given to you by your health care provider. Make sure you discuss any questions you have with your health care provider. Document Released: 06/24/2006 Document Revised: 04/12/2015 Document Reviewed: 07/08/2012 [employer] Patient Information 2015 [employer] [facility]. No follow up information was provided. Extracted from: Title: Office Visit Note Author: Jim Issa MD Date: 10/10/15 Assessment/Plan Acute sinusitis Rx for Amoxil 875mg bid and Prednisone. Continue with the Mucinex. Ordered: CBC w/ Differential Office Visit Level 4 Est 72517 Allergic rhinitis Continue with the allergy medications. Ordered: CBC w/ Differential Office Visit Level 4 Est 51695 Chronic joint pain Ordered: Office Visit Level 4 Est 33963 Sedimentation Rate Uric Acid Essential hypertension (disorder) No change in treatment though will get lab. Ordered: Comprehensive Metabolic Panel Office Visit Level 4 Est 12632 Hyperlipidemia Ordered: Lipid Panel Office Visit Level 4 Est 66633 Orders: amoxicillin, 875 mg 1 tabs, Oral, BID, X 10 days, # 20 tabs, 0 Refill (s), Pharmacy: [facility] #[id number], 1 tabs Oral BID,x10 days prednisoLONE, 5 mg 1 tabs, Oral, Daily, # 30 tabs, 1 Refill(s), Pharmacy: [facility] #[id number], to start on 11/10/15, 1 tabs Oral Daily predniSONE, See Instructions, 4 tabs oral daily x7 days, then 2 tabs oral daily x7 days, then 5mg oral daily, # 56 tabs, 0 Refill(s), Pharmacy: [facility] #[id number], 4 tabs oral daily x7 days, then 2 tabs oral daily x7 days, then 5mg oral daily
--- OUTSIDE RECORDS SUMMARY | 2017-09-02 01:08 | External Medical Summary | Referral Summary ---
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 Discharge Disposition: 01-Home or Self Care Attending [...] # 5 unknown unit, eRx: [facility] #[id number], INSTILL ONE DROP TO EACH EYE TWICE A DAY Start Date: 03/29/14 Status: OrderedLasix 40 mg oral tablet See Instructions, TAKE ONE TABLET BY MOUTH EVERY DAY, # 90 tabs, 1 Refill(s), eRx: [facility] #[id number], TAKE ONE TABLET BY MOUTH EVERY DAY Start Date: 03/29/15 Status: OrderedLipitor 10 mg oral tablet See Instructions, TAKE ONE TABLET BY MOUTH ONCE A DAY, # 90 tabs, 1 Refill(s), eRx: [facility]#[id number], TAKE ONE TABLET BY MOUTH ONCE A DAY Start Date: 01/17/15 Status: OrderedLotrel 10 mg-20 mg oral capsule 1 caps, Oral, Daily, PT. NEEDS TO SCHEDULE A CDM APPT. AND NEEDS LABS DONE., # 90 caps, 0 Refill(s),Pharmacy: [facility] #[id number] Start Date: 05/13/15 Status: Orderedmeloxicam 7.5 mg oral tablet See Instructions, TAKE ONE TABLET BY MOUTH DAILY, # 90 tabs, 5 Refill(s), eRx: [facility] #[id number], TAKE ONE TABLET BY MOUTH DAILY Start Date: 01/17/15 Status: OrderedPremarin 0.625 mg oral tablet See Instructions, TAKE ONE TABLET BY MOUTH DAILY, # 90 tabs, 1 Refill(s), eRx: [facility] #[id number], TAKE ONE TABLET BY MOUTH DAILY Start Date: 05/16/15 Status: OrderedProventil HFA 90 mcg/inh inhalation aerosol See Instructions, as needed for wheezing, 1 puffs Inhalation q4-6hr, # 1 Each, 2 Refill(s), Pharmacy: [facility] #[id number] Start Date: 07/09/14 Status: OrderedRhinocort Aqua 32 mcg/inh nasal spray 1 sprays, Nasal, Daily, # 8.6 g, 1 Refill(s), Pharmacy: [facility] #[id number] Start Date: 12/31/14 Status: OrderedTylenol PM See Instructions, as needed for sleep, 2 tabs at Bedtime (once a day), 0 Refill( s) Start Date: 04/21/15 Status: Ordered Results No data available for this section Immunizations No data available for this section Procedures Procedure Date Related Diagnosis Body Site Injection(s); single tendon sheath, or ligament, 12/3/15 aponeurosis (eg, plantar "fascia") Laparoscopic cholecystectomy1 07/22/14 Colonoscopy2 06/11/13 removal of ganglion cyst Rt foot3 03/04/12 Cystoscopy 05/06/09 RT Carpal tunnel release 01/26/09 Hysterectomy 1991 Breast reduction 1983 Appendectomy 1977 LT Carpal tunnel release 1Biliary abbxoojvqz2q/biopsy tubulovillous adenoma no Crohn's repeat [id number] Borja Social History Social History Type Response Smoking Status Never smoker Assessment and Plan Extracted from: Title: Office Visit Note Author: Morgan Borja DPM Date: 06/09/15 Assessment/Plan Bilateral plantar fasciitis Status post left heel plantar fasciotomy by Dr. Mensah. Patient opted for cortisone injection of RIGHT heel today. We discussed possible side effects of injection; spiking of sugar level, rupture of soft tissue structures with high impact exercise activity , atrophy of fat pad with repeated injections, and discoloration at the injection site. After Betadine prep to the maximal point of tenderness of the heel, 1.0 ml of 0.25 % Marcaine and 2.0 ml of Kenalog was injected into the heel. Patient was instructed to ice the injection today and avoid exercising next few days. Patient was provided with a pamphlet for endoscopic plantar fasciotomy. Follow up if condition worsens. 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
--- OUTSIDE RECORDS SUMMARY | 2017-09-02 01:08 | External Medical Summary | Referral Summary ---
:1965 Author Organization [facility] Address [address] [place] [address] [place] [address] Care Team Providers Name Role Phone Jim Issa Primary Care Physician Encounter VC Date(s): 05/14/16 - 05/14/16 [facility] [address] [place] [address] Discharge Disposition: 01-Home or Self Care Attending Physician: Jim Issa MD Vital Signs Most recent to oldest [Reference Range]: 1 Blood Pressure [90-140/60-90 mmHg] 134/80 mmHg (05/14/16 4:14 PM) Problem List Condition Effective Dates Status [...] morphine Nausea/Vomiting Active 1latex rast test equals [id number] eyes Medications Alocril 2% ophthalmic solution See Instructions, INSTILL ONE DROP TO EACH EYE TWICE A DAY, # 5 unknown unit, eRx: [facility] #[id number], INSTILL ONE DROP TO EACH EYE TWICE A DAY Start Date: 03/31/16 Status: OrderedamLODIPine-benazepril 10 mg-20 mg oral capsule See Instructions, TAKE ONE CAPSULE BY MOUTH DAILY, # 90 caps, 1 Refill(s), eRx: [facility] #[id number], TAKE ONE CAPSULE BY MOUTH DAILY Start Date: 11/17/15 Status: Orderedatorvastatin 10 mg oral tablet See Instructions, TAKE ONE TABLET BY MOUTH DAILY, # 90 tabs, eRx: [facility] #[id number], TAKE ONETABLET BY MOUTH DAILY Start Date: 04/24/16 Status: OrderedDilaudid 2 mg, Oral, QID, as needed for pain, 0 Refill(s) Start Date: 04/17/16 Status: Orderedglimepiride 2 mg oral tablet See Instructions, TAKE ONE TABLET BY MOUTH TWICE A DAY, # 60 tabs, eRx: [facility] #[id number], TAKE ONE TABLET BY MOUTH TWICE A DAY Start Date: 04/06/16 Status: Orderedibuprofen 800 mg oral tablet 800 mg 1 tabs, Oral, BID, with food or milk, # 60 tabs, 2 Refill(s), Pharmacy: [facility] #[id number], 1 tabs Oral BID,Instr:with food or milk Start Date: 11/15/15 Status: OrderedLasix 40 mg oral tablet 40 mg 1 tabs, Oral, BID, # 60 tabs, 2 Refill(s), Pharmacy: [facility] # [id number], 1 tabs Oral BID Start Date: 02/03/16 [...] day), # 17 g, 2 Refill(s), Pharmacy: [facility] #[id number] Start Date: 02/28/16 Status: OrderedNorco 7.5 mg-325 mg oral tablet 1 tabs, Oral, q6hr, as needed for pain, # 30 tabs, 0 Refill(s) Start Date: 04/26/16 Status: OrderedPremarin 0.625 mg oral tablet See Instructions, TAKE ONE TABLET BY MOUTH DAILY, # 90 tabs, eRx: [facility] #[id number], TAKE ONETABLET BY MOUTH DAILY Start Date: 02/20/16 Status: OrderedProventil HFA 90 mcg/inh inhalation aerosol See Instructions, as needed for wheezing, 1 puffs Inhalation q4-6hr, # 1 Each, 2 Refill(s), Pharmacy: [facility] #[id number] Start Date: 07/09/14 Status: OrderedTylenol Extra Strength mg, Oral, q6hr, 0 Refill(s) Start Date: 11/15/15 Status: Ordered Results Chemistry Most recent to oldest [Reference Range]: 1 Hgb A1c [4.1-5.6 %] 5.7 % *HI* (05/14/16 4:59 PM) eAvg Glucose 116.9 mg/dL (05/14/16 4:59 PM) Immunizations No data available for this section Procedures Procedure Date Related Diagnosis Body Site Endoscopic plantar fasciotomy1 04/26/16 Laparoscopic cholecystectomy2 07/22/14 Colonoscopy3 06/11/13 removal of ganglion cyst Rt foot4 03/04/12 Cystoscopy 05/06/09 RT Carpal tunnel release 01/26/09 Hysterectomy 1991 Breast reduction 1984 Appendectomy 1977 LT Carpal tunnel release 1DOS 04/26/16 GP 42 days 06/08/16 R [id number] ergdxbzoan0x/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 Borja Social History Social History Type Response Smoking Status Never smoker Assessment and Plan Extracted from: Title: Ambulatory Patient Education Author: Jim Issa MD Date: Behavioral Health Fatigue Fatigue is feeling tired all of the time, a lack of energy, or a lack of motivation. Occasional or mild fatigue is often a normal response to activity or life in general. However, long-lasting (chronic) or extreme fatigue may indicate an underlying medical condition. HOME CARE INSTRUCTIONS Watch your fatigue for any changes. The following actions may help to lessen any discomfort you are feeling: Talk to your health care provider about how much sleep you need each night. Try to get the required amount every night. Take medicines only as directed by your health care provider. Eat a healthy and nutritious diet. Ask your health care provider if you need help changing your diet. Drink enough fluid to keep your urine clear or pale yellow. Practice ways of relaxing, such as yoga, meditation, massage therapy, or acupuncture. Exercise regularly. Change situations that cause you stress. Try to keep your work and personal routine reasonable. Do not abuse illegal drugs. Limit alcohol intake to no more than 1 drink per day for non women and 2 drinks per day for men. One drink equals 12 ounces of beer, 5 ounces of wine, or 1 ounces of hard liquor. Take a multivitamin, if directed by your health care provider. SEEK MEDICAL CARE IF: Your fatigue does not get better. You have a fever. You have unintentional weight loss or gain. You have headaches. You have difficulty: Falling asleep. Sleeping throughout the night. You feel angry, guilty, anxious, or sad. You are unable to have a bowel movement (constipation). You skin is dry. Your legs or another part of your body is swollen. SEEK IMMEDIATE MEDICAL CARE IF: You feel confused. Your vision is blurry. You feel faint or pass out. You have a severe headache. You have severe abdominal, pelvic, or back pain. You have chest pain, shortness of breath, or an irregular or fast heartbeat. You are unable to urinate or you urinate less than normal. You develop abnormal bleeding, such as bleeding from the rectum, vagina , nose, lungs, or nipples. You vomit blood. You have thoughts about harming yourself or committing suicide. You are worried that you might harm someone else. This information is not intended to replace advice given to you by your health care provider. Make sure you discuss any questions you have with your health care provider. Document Released: 04/20/2008 Document Revised: 07/15/2015 Document Reviewed: 10/26/2014 [employer] Patient Education 2016 [employer] No follow up information was provided. Extracted from: Title: Office Visit Note Author: Jim Issa MD Date: 05/14/16 Assessment/Plan Borderline diabetic Continue with the current medications. Follow up in 3 months. Ordered: Hemoglobin A1c Office Visit Level 3 Est 00036
--- OUTSIDE RECORDS SUMMARY | 2017-09-02 01:08 | External Medical Summary | Referral Summary ---
:1965 Author [facility] Address [address] [place] [address] [place] [address] Care Team Providers Name Role Phone Jim Issa Primary Care Physician Encounter VC Date(s): 04/21/15 - 04/21/15 [facility] [address] [place] [phone] [place] Discharge Disposition: 01-Home or Self Care Attending Physician: Darby Mcgee PA-C Admitting Physician: Darby Mcgee PA-C Referring Physician: Jim Issa MD Vital Signs Most recent to oldest [Reference Range]: 1 Temperature Tympanic [36.6-38.1 degC] 36.5 degC *LOW* (04/21/15 3:44 PM) Peripheral Pulse Rate [60-100 bpm] 80 bpm (04/21/15 3:44 PM) Respiratory Rate [14-20 br/min] 20 br/min (04/21/15 3:44 PM) Blood Pressure [90-140/60-90 mmHg] 126/80 mmHg (04/21/15 3:44 PM) Problem List Condition Effective Dates Status [...] A DAY, # 5 unknown unit, eRx: [facility] #[id number], INSTILL ONE DROP TO EACH EYE TWICE A DAY Start Date: 03/29/14 Status: OrderedLasix 40 mg oral tablet See Instructions, TAKE ONE TABLET BY MOUTH EVERY DAY, # 90 tabs, 1 Refill(s), eRx: [facility] #[id number], TAKE ONE TABLET BY MOUTH EVERY DAY Start Date: 03/29/15 Status: OrderedLipitor 10 mg oral tablet See Instructions, TAKE ONE TABLET BY MOUTH ONCE A DAY, # 90 tabs, 1 Refill(s), eRx: [facility]#[id number], TAKE ONE TABLET BY MOUTH ONCE A DAY Start Date: 01/17/15 Status: OrderedLotrel 10 mg-20 mg oral capsule See Instructions, TAKE ONE CAPSULE BY MOUTH EVERY DAY, # 90 caps, 2 Refill(s), Pharmacy: [facility] #[id number] Start Date: 05/20/14 Status: Orderedmeloxicam 7.5 mg oral tablet See Instructions, TAKE ONE TABLET BY MOUTH DAILY, # 90 tabs, 5 Refill(s), eRx: [facility] #[id number], TAKE ONE TABLET BY MOUTH DAILY Start Date: 01/17/15 Status: OrderedPremarin 0.625 mg oral tablet See Instructions, TAKE ONE TABLET BY MOUTH DAILY, # 90 tabs, 2 Refill(s), Pharmacy: [facility]#[id number], TAKE ONE TABLET BY MOUTH DAILY Start Date: 07/09/14 Status: OrderedProventil HFA 90 mcg/inh inhalation aerosol See Instructions, as needed for wheezing, 1 puffs Inhalation q4-6hr, # 1 Each, 2 Refill(s), Pharmacy: [facility] #[id number] Start Date: 07/09/14 Status: OrderedRhinocort Aqua 32 mcg/inh nasal spray 1 sprays, Nasal, Daily, # 8.6 g, 1 Refill(s), Pharmacy: [facility] #[id number] Start Date: 12/31/14 Status: OrderedTylenol PM See [...] Appendectomy 1977 LT Carpal tunnel release 1Biliary geyxmcwrkc3p/biopsy tubulovillous adenoma no Crohn's repeat [id number] Borja Social History Social History Type Response Smoking Status Never smoker Assessment and Plan Extracted from: Title: Ambulatory Patient Education Author: Darby Mcgee PA-C Date: 04/21/15 Family Medicine Shoulder Pain The shoulder is the joint that connects your arms to your body. The bones that form the shoulder joint include the upper arm bone (humerus), the shoulder blade (scapula), and the collarbone (clavicle). The top of the humerus is shaped like a ball and fits into a rather flat socket on the scapula (glenoid cavity). A combination of muscles and strong, fibrous tissues that connect muscles to bones (tendo ns) support your shoulder joint and hold the ball in the socket. Small, fluid- filled sacs (bursae) are located in different areas of the joint. They act as cushions between the bones and the overlying s oft tissues and help reduce friction between the gliding tendons and the bone as you move your arm. Your shoulder joint allows a wide range of motion in your arm. This range of motion allows you to do t hings like scratch your back or throw a ball. However, this range of motion also makes your shoulder more prone to pain from overuse and injury. Causes of shoulder pain can originate from both injury and overuse and usually can be grouped in the following four categories: Redness, swelling, and pain (inflammation) of the tendon (tendinitis) or the bursae (bursitis). Instability, such as a dislocation of the joint. Inflammation of the joint (arthritis). Broken bone (fracture). HOME CARE INSTRUCTIONS Apply ice to the sore area. Put ice in a plastic bag. Place a towel between your skin and the bag. Leave the ice on for 15-20 minutes, 3-4 times per day for the first 2 days , or as directed by your health care provider. Stop using cold packs if they do not help with the pain. If you have a shoulder sling or immobilizer, wear it as long as your caregiver instructs. Only remove it to shower or bathe. Move your arm as little as possible, but keep your hand moving to prevent swelling. Squeeze a soft ball or foam pad as much as possible to help prevent swelling. Only take jztf-ofv-zzrvnby or prescription medicines for pain, discomfort , or fever as directed by your caregiver. SEEK MEDICAL CARE IF: Your shoulder pain increases, or new pain develops in your arm, hand, or fingers. Your hand or fingers become cold and numb. Your pain is not relieved with medicines. SEEK IMMEDIATE MEDICAL CARE IF: Your arm, hand, or fingers are numb or tingling. Your arm, hand, or fingers are significantly swollen or turn white or blue. MAKE SURE YOU: Understand these instructions. Will watch your condition. Will get help right away if you are not doing well or get worse. Document Released: 04/03/2006 Document Revised: 11/08/2014 Document Reviewed: 06/07/2012 [employer]Care Patient Information 2015 [facility]. This information is not intended to replace advice given to you by your health care provider. Make sure you discuss any questions you have with your health care provider. Physical Medicine and Rehabilitation Rib Belt Your caregiver has given you a rib belt to help control the pain from a chest injury. This belt gives gentle support to the injured area. It also helps reduce chest motion. To apply your rib belt, place it across your back and stretch the ends out and forward across your rib cage. Press the Velcro areas together when there is a gentle pressure on the chest wall. Do not make the rib belt too tight in order to breathe comfortably. If you are older or have lung disease, rib belts can increase the risk of getting pneumonia after a chest injury. You must be sure to breathe deeply and cough several times every hour to keep your lungs clear. Do not use a rib belt if it does not help relieve your pain. Take it off at night when you go to bed. Most rib belts can be washed by machine and hung dry. SEEK IMMEDIATE MEDICAL CARE IF: You develop purulent (pus like) sputum or an uncontrolled cough. You begin coughing up blood. You develop pain which is getting worse or is uncontrolled with medications. You have a fever. Any of the symptoms which brought you in for treatment are getting worse rather than better, or you develop shortness of breath or chest pain. Dial 911 for immediate emergency care. Document Released: 08/01/2005 Document Revised: 09/15/2012 Document Reviewed: 06/24/2006 ExitCare Patient Information 2015 [employer]. This information is not intended to replace advice given to you by your health care provider. Make sure you discuss any questions you have with your health care provider. No follow up information was provided. Extracted from: Title: Office Visit Note Author: Darby Mcgee PA-C Date: 04/21/15 Assessment/Plan Acute pain of left shoulder X-rays ordered. If any fractures, will need to send to ortho. I did offer pt pain medication, but pt declined.HasNorcoat home, but states it makes her too drowsy duri ng the day to function atwork. Ioffered Tramadol, but shedeclined.For now, she can take Tylenol during the day. We will call pt with x-ray results when available. Ordered: Office Visit Level 4 Est 22357 XR Scapula Left XR Shoulder Complete Left Rib pain on left side X-rays ordered. D/w pt that if there is a ribfracture , there is not much further treatment that can be done. She can obtain a rib belt to guard the area if she needs to sneeze, cough, laugh, etc. She can use ice/heat to area, and take pain meds as needed.Will call pt with x-ray results when available. Ordered: Office Visit Level 4 Est 75226 XR Ribs w/ PA Chest Left
--- OUTSIDE RECORDS SUMMARY | 2017-09-02 01:08 | External Medical Summary | Referral Summary ---
:1965 Author Organization [facility] Address [address] [place] [address] Care Team Providers Name Role Phone Luis Manuel Jim Suarez Primary Care Physician Encounter VC Date(s): 11/08/14 - 11/08/14 [facility] [address] [place] [address] [place] Discharge Diagnosis: Bilateral plantar fasciitis Discharge Diagnosis: Neuroma of foot Discharge Disposition: 01-Home or Self Care [...] # 5 unknown unit, eRx: [facility] #[id number], INSTILL ONE DROP TO EACH EYE TWICE A DAY Start Date: 03/29/14 Status: OrderedLasix 40 mg oral tablet See Instructions, TAKE ONE TABLET BY MOUTH EVERY DAY, # 90 tabs, 1 Refill(s), eRx: [facility] #[id number], TAKE ONE TABLET BY MOUTH EVERY DAY Start Date: 03/29/15 Status: OrderedLipitor 10 mg oral tablet See Instructions, TAKE ONE TABLET BY MOUTH ONCE A DAY, # 90 tabs, 1 Refill(s), eRx: [facility]#[id number], TAKE ONE TABLET BY MOUTH ONCE A DAY Start Date: 01/17/15 Status: OrderedLotrel 10 mg-20 mg oral capsule 1 caps, Oral, Daily, PT. NEEDS TO SCHEDULE A CDM APPT. AND NEEDS LABS DONE., # 90 caps, 0 Refill(s),Pharmacy: [facility] #[id number] Start Date: 05/13/15 Status: Orderedmeloxicam 7.5 mg oral tablet See Instructions, TAKE ONE TABLET BY MOUTH DAILY, # 90 tabs, 5 Refill(s), eRx: [facility] #[id number], TAKE ONE TABLET BY MOUTH DAILY Start Date: 01/17/15 Status: OrderedPremarin 0.625 mg oral tablet See Instructions, TAKE ONE TABLET BY MOUTH DAILY, # 90 tabs, 2 Refill(s), Pharmacy: [facility]#[id number], TAKE ONE TABLET BY MOUTH DAILY Start Date: 07/09/14 Status: OrderedProventil HFA 90 mcg/inh inhalation aerosol See Instructions, as needed for wheezing, 1 puffs Inhalation q4-6hr, # 1 Each, 2 Refill(s), Pharmacy: [facility] #[id number] Start Date: 07/09/14 Status: OrderedRhinocort Aqua 32 mcg/inh nasal spray 1 sprays, Nasal, Daily, # 8.6 g, 1 Refill(s), Pharmacy: [facility] #[id number] Start Date: 12/31/14 Status: OrderedTylenol PM See Instructions, as needed for sleep, 2 tabs at Bedtime (once a day), 0 Refill( s) Start Date: 04/21/15 Status: Ordered Results No data available for this section Immunizations No data available for this section Procedures Procedure Date Related Diagnosis Body Site Injection(s), anesthetic agent and/or steroid, 11/08/14 plantar common digital nerve(s) (eg, Myers's neuroma) Injection(s); single tendon sheath, or ligament, 11/08/14 aponeurosis (eg, plantar "fascia") Laparoscopic cholecystectomy1 07/22/14 Colonoscopy2 06/11/13 removal of ganglion cyst Rt foot3 03/04/12 Cystoscopy 05/06/09 RT Carpal tunnel release 01/26/09 Hysterectomy 1991 Breast reduction 1984 Appendectomy 1977 LT Carpal tunnel release 1Biliary aklzcrzttw8x/biopsy tubulovillous adenoma no Crohn's repeat [id number] Borja Social History Social History Type Response Smoking Status Never smoker Assessment and Plan Extracted from: Title: Office Visit Note Author: Morgan Borja DPM Date: 11/08/14 Assessment/Plan Bilateral plantar fasciitis The patient opted [...] few days. Follow up if condition worsens. Neuroma of foot The patient opted to have cortisone injection. After Betadine prep to the dorsal surface of third interspace of leftfoot, 0.5 ml of 1% Marcaine plain with 1.0 ml of dexamethasone phosphate was injected. The patient is to ice the injection site today. Follow-up if condition worsens.
--- OUTSIDE RECORDS SUMMARY | 2017-09-02 01:08 | External Medical Summary | Referral Summary ---
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 #[id number], INSTILL ONE DROP TO EACH EYE TWICE A DAY Start Date: 03/31/16 Status: OrderedamLODIPine-benazepril 10 mg-20 mg oral capsule See Instructions, TAKE ONE CAPSULE BY MOUTH DAILY, # 90 caps, 1 Refill(s), eRx: [facility] #[id number], TAKE ONE CAPSULE BY MOUTH DAILY Start Date: 11/17/15 Status: Orderedatorvastatin 10 mg oral tablet See Instructions, TAKE ONE TABLET BY MOUTH DAILY, # 90 tabs, eRx: [facility] #[id number], TAKE ONETABLET BY MOUTH DAILY Start Date: 02/01/16 Status: OrderedDilaudid 2 mg, Oral, QID, as needed for pain, 0 Refill(s) Start Date: 04/17/16 Status: Orderedglimepiride 2 mg oral tablet See Instructions, TAKE ONE TABLET BY MOUTH TWICE A DAY, # 60 tabs, eRx: [facility] #[id number], TAKE ONE TABLET BY MOUTH TWICE A DAY Start Date: 04/06/16 Status: Orderedibuprofen 800 mg oral tablet 800 mg 1 tabs, Oral, BID, with food or milk, # 60 tabs, 2 Refill(s), Pharmacy: [facility] #[id number], 1 tabs Oral BID,Instr:with food or milk Start Date: 11/15/15 Status: OrderedLasix 40 mg oral tablet 40 mg 1 tabs, Oral, BID, # 60 tabs, 2 Refill(s), Pharmacy: [facility] # [id number], 1 tabs Oral BID Start Date: 02/03/16 Status: OrderedmetFORMIN 500 mg oral tablet 500 mg 1 tabs, Oral, BID, # 60 tabs, 2 Refill(s), Pharmacy: [facility] # [id number], 1 tabs Oral BID Start Date: 02/13/16 Status: Orderedmetoclopramide 10 mg oral tablet 10 mg 1 tabs, Oral, QIDACHS, 0 Refill(s) Start Date: 04/17/16 Status: OrderedMiraLax oral powder for reconstitution 17 g, Oral, Daily, dissolve in water before taking, # 255 g, 0 Refill(s) Start Date: 10/10/15 Status: OrderedNasonex 50 mcg/inh nasal spray 2 sprays, Nasal, Bedtime (once a day), # 17 g, 2 Refill(s), Pharmacy: [facility] #[id number] Start Date: 02/28/16 Status: OrderedPremarin 0.625 mg oral tablet See Instructions, TAKE ONE TABLET BY MOUTH DAILY, # 90 tabs, eRx: [facility] #[id number], TAKE ONETABLET BY MOUTH DAILY Start Date: 02/20/16 Status: OrderedProventil HFA 90 mcg/inh inhalation aerosol See Instructions, as needed for wheezing, 1 puffs Inhalation q4-6hr, # 1 Each, 2 Refill(s), Pharmacy: [facility] #[id number] Start Date: 07/09/14 Status: OrderedtraMADol 50 mg oral tablet 50 mg 1 tabs, Oral, q4hr, as needed for pain, Max of 8 per day., # 60 tabs, 0 Refill(s) Start Date: 02/03/16 Status: OrderedTylenol Extra Strength mg, Oral, q6hr, 0 Refill(s) Start Date: 11/15/15 Status: Ordered Results Hematology Most recent to oldest [Reference Range]: 1 WBC [4.8-10.8 10*3/uL] 8.2 10*3/uL (04/20/16 9:44 AM) RBC [4.00-5.20] 5.01 (04/20/16 9:44 AM) Hgb [12.0-16.0 gm/dL] 14.5 gm/dL (04/20/16 9:44 AM) Hct [37.0-47.0 %] 43.8 % (04/20/16 9:44 AM) MCV [82.0-99.0 fL] 87.4 fL (04/20/16 9:44 AM) MCH [27.0-32.0 pg] 28.9 pg (04/20/16 9:44 AM) MCHC [32.0-36.0 gm/dL] 33.1 gm/dL (04/20/16 9:44 AM) RDW [11.5-14.5 %] 14.0 % (04/20/16 9:44 AM) Platelet [150-400 10*3/uL] 286 10*3/uL (04/20/16 9:44 AM) MPV [8.8-14.8 fL] 9.9 fL (04/20/16 9:44 AM) Immature Granulocytes [0.0-1.0 %] 0.5 % (04/20/16 9:44 AM) Neutrophils [51-75 %] 61 % (04/20/16 9:44 AM) Lymphocytes [20-46 %] 26 % (04/20/16 9:44 AM) Monocytes [4-11 %] 11 % (04/20/16 9:44 AM) Eosinophils [0-4 %] 1 % (04/20/16 9:44 AM) Basophils [0-2 %] 1 % (04/20/16 9:44 AM) Neutro Absolute [1.90-7.00 10*3] 4.96 10*3 (04/20/16 9:44 AM) Lymph Absolute [0.80-3.30 10*3] 2.14 10*3 (04/20/16 9:44 AM) Sibley Absolute [0.30-1.00 10*3] 0.87 10*3 (04/20/16 9:44 AM) Eos Absolute [0.00-0.50 10*3] 0.08 10*3 (04/20/16 9:44 AM) Baso Absolute [0.00-0.20 10*3] 0.07 10*3 (04/20/16 9:44 AM) Differential Scanned Slide (04/20/16 9:44 AM) Chemistry Most recent to oldest [Reference Range]: 1 Sodium Lvl [135-144 mEq/L] 140 mEq/L (04/20/16 9:44 AM) Potassium Lvl [3.5-5.2 mEq/L] 3.9 mEq/L (04/20/16 9:44 AM) Chloride [99-111 mEq/L] 102 mEq/L (04/20/16 9:44 AM) CO2 [22-31 mEq/L] 28 mEq/L (04/20/16 9:44 AM) AGAP [3-20] 10 (04/20/16 9:44 AM) BUN [10-20 mg/dL] 12 mg/dL (10/14/16 9:44 AM) Glucose Lvl [70-99 mg/dL] 77 mg/dL (04/20/16 9:44 AM) Creatinine Lvl [0.57-1.11 mg/dL] 0.66 mg/dL (04/20/16 9:44 AM) eGFR [>60 mL/min] >60 mL/min 1 (04/20/16 9:44 AM) Calcium Lvl [8.9-10.5 mg/dL] 9.2 mg/dL (04/20/16 9:44 AM) 1Result Comment: Multiply eGFR results by 1.21 for race. Immunizations No data available for this section Procedures Procedure Date Related Diagnosis Body Site Collection of venous blood by venipuncture 04/20/16 Laparoscopic cholecystectomy1 07/22/14 Colonoscopy2 06/11/13 removal of ganglion cyst Rt foot3 03/04/12 Cystoscopy 05/06/09 RT Carpal tunnel release 01/26/09 Hysterectomy 1990 Breast reduction 1983 Appendectomy 1977 LT Carpal tunnel release 1Biliary mgijmkkilv0a/biopsy tubulovillous adenoma no Crohn's repeat [id number] Borja Social History Social History Type Response Smoking Status Never smoker Assessment and Plan Extracted from: Title: Office Visit Note Author: Morgan Borja DPHarleen Date: 04/20/16 Assessment/Plan 1.Acquired hallux limitus of right foot Status post cortisone injection on 11/21/15. Improved. 2.Bilateral plantar fasciitis Status post plantar fasciotomy of left heel by Dr. Garrido years ago. The patient has tried all conservative treatments up to this point; however, they provided minimal pain relief and the patient would like to proceed with surgical intervention in the form of endoscopi c plantarfasciotomyof right foot. We discussed possible complications of the procedure; post operative soft tissue and bone infection, chronic swelling and persistent pain, post-surgical nerve entrapm ent, painful scar formation, development of flat foot or digital deformity, and lateral column pain. The patient demonstrated understanding of what we discussed and proceed with surgery. The patient dedra l be WBAT in a cam walker for three weeks after surgery. Patient may work after surgeryand advised patient to perform sitdown jobfor few weeks. 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
--- OUTSIDE RECORDS SUMMARY | 2017-09-02 01:08 | External Medical Summary | Referral Summary ---
:1965 Author Organization [facility] Address [address] [place] [address] [place] [address] Care Team Providers Name Role Phone Jim Issa Primary Care Physician Encounter VC Date(s): 08/15/15 - 08/15/15 [facility] [address] [place] [address]- [place] Discharge Disposition: 01-Home or Self Care Attending Physician: Jim Issa MD Admitting Physician: Jim Issa MD Vital Signs Most recent to oldest [Reference Range]: 1 Blood Pressure [90-140/60-90 mmHg] 134/86 mmHg (08/15/15 4:05 PM) Problem List Condition Effective Dates Status [...] # 5 unknown unit, eRx: [facility] #[id number], INSTILL ONE DROP TO EACH EYE TWICE A DAY Start Date: 03/29/14 Status: OrderedLasix 40 mg oral tablet See Instructions, TAKE ONE TABLET BY MOUTH EVERY DAY, # 90 tabs, 1 Refill(s), eRx: [facility] #[id number], TAKE ONE TABLET BY MOUTH EVERY DAY Start Date: 03/29/15 Status: OrderedLipitor 10 mg oral tablet See Instructions, TAKE ONE TABLET BY MOUTH DAILY, # 90 tabs, eRx: [facility] #[id number], TAKE ONETABLET BY MOUTH DAILY Start Date: 07/25/15 Status: OrderedLotrel 10 mg-20 mg oral capsule 1 caps, Oral, Daily, PT. NEEDS TO SCHEDULE A CDM APPT. AND NEEDS LABS DONE., # 90 caps, 0 Refill(s),Pharmacy: [facility] #[id number] Start Date: 05/13/15 Status: Orderedmeloxicam 7.5 mg oral tablet See Instructions, TAKE ONE TABLET BY MOUTH DAILY, # 90 tabs, 5 Refill(s), eRx: [facility] #[id number], TAKE ONE TABLET BY MOUTH DAILY Start Date: 01/17/15 Status: OrderedPremarin 0.625 mg oral tablet See Instructions, TAKE ONE TABLET BY MOUTH DAILY, # 90 tabs, 1 Refill(s), eRx: [facility] #[id number], TAKE ONE TABLET BY MOUTH DAILY Start Date: 05/16/15 Status: OrderedProventil HFA 90 mcg/inh inhalation aerosol See Instructions, as needed for wheezing, 1 puffs Inhalation q4-6hr, # 1 Each, 2 Refill(s), Pharmacy: [facility] #[id number] Start Date: 07/09/14 Status: OrderedRhinocort Aqua 32 mcg/inh nasal spray 1 sprays, Nasal, Daily, # 8.6 g, 1 Refill(s), Pharmacy: [facility] #[id number] Start Date: 12/31/14 Status: OrderedTylenol PM See [...] Appendectomy 1977 LT Carpal tunnel release 1Biliary kzpdmmwwok4a/biopsy tubulovillous adenoma no Crohn's repeat [id number] Borja Social History Social History Type Response Smoking Status Never smoker Assessment and Plan Extracted from: Title: Ambulatory Patient Education Author: Jim Issa MD Date: 08/15/15 Gastroenterology Gastrointestinal Problems During Exercise Stomach problems that occur during exercise are common among athletes. This is especially true for distance runners and triathletes. SYMPTOMS Heartburn. Feeling sick to stomach (nausea). Vomiting. Diarrhea. Bloating. Stomach pain. Rectal bleeding and gassiness (flatulence). Cramping. Urge to go the bathroom (defecate). TREATMENT OF UPPER GI PROBLEMS The treatment of problems (symptoms) from the upper GI (gastrointestinal) tract caused by exercise are helped by: Avoiding solid foods for 3 to 4 hours before intense exercise. Eating a diet high in carbohydrates and very low in protein and fat. Medications from your caregiver are also available to help upper GI problems. Some of these include antacids to neutralize the acids in your stomach. GASTROINTESTINAL BLEEDING Bleeding from the GI tract may occur with intense exercise. It is especially common in marathon runners. The bleeding is thought to come mostly from the stomach. It may also come from the large bowel (colon). You should not assume the bleeding is caused by exercise. If you have any problems with gastrointestinal bleeding, it is extremely important to see your caregiver for evaluation to make sure there are not other causes of bleeding. TREATMENT OF BLEEDING Once it is known that exercise is the cause of blood loss, maintaining adequate fluid intake to avoid dehydration may be helpful. Wear good running shoes to cut down on jarring the body during workouts. It is good to have your blood (hemoglobin) and the iron stores of your body checked periodically, to see if iron replacement may be necessary. Take medications prescribed by your caregiver as directed. Abdominal pain in athletes is common during intense activities. The cause is unknown. It may be due to spasms in the muscular division between the abdomen and chest (the diaphragm), or by air trapped in parts of the large bowel. Abdominal pain may be helped by avoiding large meals prior to exercise. Runner's diarrhea is a very common complaint among runners. The diarrhea seems to be related to the intensity of the exercise. It is more common during competition than during regular exercise. There ar e many different possible causes of this and it may be a combination of all of them. Treatment of diarrhea may be difficult. A reduction in fiber intake a day and a half before competition may be helpfu l. If the problem persists, antidiarrheal medicine may be used. GENERALIZATIONS ABOUT TREATING ABDOMINAL EXERCISE PROBLEMS Limit dietary fiber prior to competition. Avoid solid foods at least three hours prior to a race. Eat a pre-meal diet which is high in carbohydrates. Avoid fat and protein intake during endurance events. Drink fluids frequently during competition taking in two to three, 8 ounce glasses of fluid per hour. These should replace sodium, potassium, and carbohydrate in dilute solutions. Concentrated drin ks may cause GI problems and aggravate existing conditions. Document Released: 03/19/2002 Document Revised: 09/15/2012 Document Reviewed: 06/24/2006 [facility] Patient Information 2015 [employer]. This information is not intended to replace advice given to you by your health care provider. Make sure you discuss any questions you have with your health care provider. No follow up information was provided. Extracted from: Title: Office Visit Note Author: Jim Issa MD Date: 08/15/15 Assessment/Plan History of small bowel obstruction Will get a KUB flat and upright. Ordered: [facility] 7 Day Disch [id number]
--- OUTSIDE RECORDS SUMMARY | 2017-09-02 01:08 | External Medical Summary | Referral Summary ---
:1965 Author Organization [facility] Address [address] [place] [address] Care Team Providers Name Role Phone Issa Jmi Daniela Primary Care Physician Encounter VC Date(s): 05/28/16 - 05/28/16 [facility] [address] [place] [address]- Discharge Diagnosis: Status post right foot surgery Discharge Diagnosis: Myers's neuroma of third interspace [...] morphine Nausea/Vomiting Active 1latex rast test equals [id number] eyes Medications Alocril 2% ophthalmic solution See Instructions, INSTILL ONE DROP TO EACH EYE TWICE A DAY, # 5 unknown unit, eRx: [facility] #[id number], INSTILL ONE DROP TO EACH EYE TWICE A DAY Start Date: 03/31/16 Status: OrderedamLODIPine-benazepril 10 mg-20 mg oral capsule See Instructions, TAKE ONE CAPSULE BY MOUTH DAILY, # 90 caps, eRx: [facility] #[id number], TAKE ONE CAPSULE BY MOUTH DAILY Start Date: 05/21/16 Status: Orderedatorvastatin 10 mg oral tablet See Instructions, TAKE ONE TABLET BY MOUTH DAILY, # 90 tabs, eRx: [facility] #[id number], TAKE ONETABLET BY MOUTH DAILY Start Date: 04/24/16 Status: OrderedDilaudid 2 mg, Oral, QID, as needed for pain, 0 Refill(s) Start Date: 04/17/16 Status: OrderedFreestyle Lite Lancets Freestyle Lite Lancets, See Instructions, Use to test blood sugars daily and as needed. DX: E11.9,# 100 Each, 3 Refill(s), Pharmacy: [facility] #[id number] , Use to test blood sugars daily and as needed. ; DX: E11.9 Start Date: 05/23/16 Status: OrderedFreestyle Lite Test Strips Freestyle Lite Test Strips, See Instructions, Use to test blood sugars fasting and as needed. DX: E11.9, # 100 Each, 3 Refill(s), Pharmacy: [facility] # [id number], Use to test blood sugars fasting and as needed. DX: E11.9 Start Date: 05/23/16 Status: Orderedglimepiride 2 mg oral tablet See Instructions, TAKE ONE TABLET BY MOUTH TWICE A DAY, # 60 tabs, eRx: [facility] #[id number], TAKE ONE TABLET BY MOUTH TWICE A DAY Start Date: 05/16/16 Status: Orderedibuprofen 800 mg oral tablet 800 mg 1 tabs, Oral, BID, with food or milk, # 60 tabs, 2 Refill(s), Pharmacy: [facility] #[id number], 1 tabs Oral BID,Instr:with food or milk Start Date: 11/15/15 Status: OrderedLasix 40 mg oral tablet 40 mg 1 tabs, Oral, BID, # 60 tabs, 2 Refill(s), Pharmacy: [facility] # [id number], 1 tabs Oral BID Start Date: 02/03/16 [...] Refill(s), Pharmacy: [facility] #[id number] Start Date: 02/28/16 Status: OrderedPremarin 0.625 mg oral tablet See Instructions, TAKE ONE TABLET BY MOUTH DAILY, # 90 tabs, eRx: [facility] #[id number], TAKE ONETABLET BY MOUTH DAILY Start Date: 05/21/16 Status: OrderedProventil HFA 90 mcg/inh inhalation aerosol See Instructions, as needed for wheezing, 1 puffs Inhalation q4-6hr, # 1 Each, 2 Refill(s), Pharmacy: [facility] #[id number] Start Date: 07/09/14 Status: OrderedTylenol Extra Strength mg, Oral, q6hr, 0 Refill(s) Start Date: 11/15/15 Status: Ordered Results No data available for this section Immunizations No data available for this section Procedures Procedure Date Related Diagnosis Body Site Injection(s), anesthetic agent and/or steroid, 05/28/16 plantar common digital nerve(s) (eg, Myers's neuroma).. Endoscopic plantar fasciotomy1 04/26/16 Laparoscopic cholecystectomy2 07/22/14 Colonoscopy3 06/11/13 removal of ganglion cyst Rt foot4 03/04/12 Cystoscopy 05/06/09 RT Carpal tunnel release 01/26/09 Hysterectomy 1991 Breast reduction 1984 Appendectomy 1977 LT Carpal tunnel release 1DOS 04/26/16 GP 42 days 06/08/16 R [id number] bgomolwtbd0j/biopsy tubulovillous adenoma no Crohn's repeat [id number] Borja Social History Social History Type Response Smoking Status Never smoker Assessment and Plan Extracted from: Title: Ambulatory Patient Education Author: Morgan Borja DPM Date: 05/28/16 Procedures Myers Neuralgia Myers neuralgia is a type of foot pain in the area closest to your toes. This area is sometimes called the ball of your foot. Myers neuralgia occurs when a branch of a nerve in your foot (digital nerve) becomes compressed. When this happens over a long period of time, the nerve can thicken (neuroma) and cause pain. This usually occurs between the third and fourth toe. Myers neuralgia can come and go but may get worse over time. CAUSES Your digital nerve can become compressed and stretched at a point where it passes under a thick band of tissue that connects your toes (intermetatarsal ligament). Myers neuralgia can be caused by mild repetitive damage in this area. This type of damage can result from: Activities such as running or jumping. Wearing shoes that are too tight. RISK FACTORS You may be at risk for Myers neuralgia if you: Are female. Wear high heels. Wear shoes that are narrow or tight. Participate in activities that stretch your toes. These include: Running. Ballet. Long-distance walking. SIGNS AND SYMPTOMS The first symptom of Myers neuralgia is pain that spreads from the ball of your foot to your toes. It may feel like you are walking on a marble. Pain usually gets worse with walking and goes away at ni ght. Other symptoms may include numbness and cramping of your toes. DIAGNOSIS Your health care provider will do a physical exam. When doing the exam, your health care provider may: Squeeze your foot just behind your toe. Ask you to move your toes to check for pain. You may also have tests on your foot to confirm the diagnosis. These may include: An X-ray. An MRI. TREATMENT Treatment for Myers neuralgia may be as simple as changing the kind of shoes you wear. Other treatments may include: Wearing a supportive pad (orthosis) under the front of your foot. This lifts your toe bones and takes pressure off the nerve. Getting injections of numbing medicine and anti-inflammatory medicine ( steroid) in the nerve. Having surgery to remove part of the thickened nerve. HOME CARE INSTRUCTIONS Take medicine only as directed by your health care provider. Wear soft-soled shoes with a wide toe area. Stop activities that may be causing pain. Elevate your foot when resting. Massage your foot. Apply ice to the injured area: Put ice in a plastic bag. Place a towel between your skin and the bag. Leave the ice on for 20 minutes, 23 times a day. Keep all follow-up visits as directed by your health care provider. This is important. SEEK MEDICAL CARE IF: Home care instructions are not helping you get better. Your symptoms change or get worse. This information is not intended to replace advice given to you by your health care provider. Make sure you discuss any questions you have with your health care provider. Document Released: 09/30/2001 Document Revised: 07/15/2015 Document Reviewed: 08/25/2014 [employer] Patient Education 2016 [employer] No follow up information was provided. Extracted from: Title: Office Visit Note Author: Morgan Borja DPM Date: 05/28/16 Assessment/Plan 1.Status post right foot surgery Status post rightheelendoscopic plantar fasciotomy 04/26/2016. Advised patient to wear supportive shoe gear and arch support. Patient is satisfied with postoperative outcome. Follow-up if condition worsens. 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 After Betadine prep to the dorsal surface of third interspace of leftfoot, 0.5 ml of 1% Marcaine plai n with 1.0 ml of dexamethasone phosphate was injected. Patient is to ice the injection site today. Follow up if condition worsens.
--- OUTSIDE RECORDS SUMMARY | 2017-09-02 01:08 | External Medical Summary | Referral Summary ---
:1965 Author Organization [facility] Address [address] [place] [address] Care Team Providers Name Role Phone Luis Manuel Jim Suarez Primary Care Physician Encounter VC Date(s): 11/15/15 - 11/15/15 [facility] [address] [place] [address]- [place] Discharge Diagnosis: Bilateral plantar fasciitis Discharge Diagnosis: Pain of right foot Discharge Diagnosis: Acquired hallux limitus of right foot Discharge Disposition: 01-Home or Self Care [...] A DAY, # 5 unknown unit, eRx: [email or web address] #[id number], INSTILL ONE DROP TO EACH EYE TWICE A DAY Start Date: 03/29/14 Status: Orderedatorvastatin 10 mg oral tablet See Instructions, TAKE ONE TABLET BY MOUTH DAILY, # 90 tabs, eRx: [facility] #[id number], TAKE ONETABLET BY MOUTH DAILY Start Date: 10/27/15 Status: Orderedibuprofen 800 mg oral tablet 800 mg 1 tabs, Oral, BID, with food or milk, # 60 tabs, 2 Refill(s), Pharmacy: [facility] #[id number], 1 tabs Oral BID,Instr:with food or milk Start Date: 11/15/15 Status: OrderedLotrel 10 mg-20 mg oral capsule See Instructions, TAKE ONE CAPSULE BY MOUTH DAILY, # 90 caps, eRx: [facility] #[id number], TAKE ONE CAPSULE BY MOUTH DAILY Start Date: 08/17/15 Status: OrderedMiraLax oral powder for reconstitution 17 g, Oral, Daily, dissolve in water before taking, # 255 g, 0 Refill(s) Start Date: 10/10/15 Status: OrderedprednisoLONE 5 mg oral tablet 5 mg 1 tabs, Oral, Daily, # 30 tabs, 1 Refill(s), Pharmacy: [facility] # [id number], to start on 11/10/15, 1 tabs Oral Daily Start Date: 10/10/15 Status: OrderedPremarin 0.625 mg oral tablet See Instructions, TAKE ONE TABLET BY MOUTH DAILY, # 90 tabs, 1 Refill(s), eRx: [facility] #[id number], TAKE ONE TABLET BY MOUTH DAILY Start Date: 05/16/15 Status: OrderedProventil HFA 90 mcg/inh inhalation aerosol See Instructions, as needed for wheezing, 1 puffs Inhalation q4-6hr, # 1 Each, 2 Refill(s), Pharmacy: [facility] #[id number] Start Date: 07/09/14 Status: OrderedRhinocort Aqua 32 mcg/inh nasal spray See Instructions, SPRAY ONE SPRAY IN EACH NOSTRIL ONCE DAILY, # 8.6 sprays, eRx : [facility] #[id number], SPRAY ONE SPRAY IN EACH NOSTRIL ONCE DAILY Start Date: 09/13/15 Status: OrderedtraMADol 50 mg oral tablet 50 mg 1 tabs, Oral, q6hr, # 30 tabs, 0 Refill(s), called to pharmacy (Rx) Start Date: 11/15/15 Status: OrderedTylenol Extra Strength mg, Oral, q6hr, 0 Refill(s) Start Date: 11/15/15 Status: Ordered Results No data available for this section Immunizations No data available for this section Procedures Procedure Date Related Diagnosis Body Site Arthrocentesis, aspiration and/or injection, 11/15/15 small joint or bursa (eg, fingers, toes); without ultrasound guidance Injection(s); single tendon sheath, or ligament, 11/15/15 aponeurosis (eg, plantar "fascia") Laparoscopic cholecystectomy1 07/22/14 Colonoscopy2 06/11/13 removal of ganglion cyst Rt foot3 03/04/12 Cystoscopy 05/06/09 RT Carpal tunnel release 01/26/09 Hysterectomy 1990 Breast reduction 1983 Appendectomy 1977 LT Carpal tunnel release 1Biliary walacftwws4g/biopsy tubulovillous adenoma no Crohn's repeat [id number] Borja Social History Social History Type Response Smoking Status Never smoker Assessment and Plan Extracted from: Title: Office Visit Note Author: Morgan Borja DPM Date: 11/15/15 Assessment/Plan Acquired hallux limitus of right foot The patient opted for cortisone injection of first MPJ of right foottoday. After Betadine prep to the dorsal surface of first MPJ, 0.5 ml of 1% Lidocaine plain with 1.0 ml of dexamethasone phosphate was injected. The patient is to ice the injection site today. Bilateral plantar fasciitis Status postleft heel plantar fasciotomy by Dr. Mensah. Patient opted for cortisone injection ofright heel today. We discussed possible side effects of injection; spiking of sugar level, rupture of soft tissue structures with high impact exercise activit y, atrophy of fat pad with repeated injections, and discoloration at the injection site. After Betadine prep to the maximal point of tenderness of the heel, 1.0 ml of 0.25 % Marcaine and 2.0 ml of Kenalog was injected into the heel. Patient was instructed to ice the injection today and avoid exercising next few days. Advised patient to wear cam walker on right footfor next 3 weeks. Follow up if condition worsens. Pain of right foot X-ray of right foot 3 views weight bearing today demonstrated increased soft tissueswelling of medial aspect of first metatarsophalangeal joint and mild arthritic changes of that joint. X-ray images were reviewed with the patient. Ordered: XR Foot Complete Right Orders: ibuprofen, 800 mg 1 tabs, Oral, BID, with food or milk, # 60 tabs, 2 Refill(s), Pharmacy: [facility] #[id number], 1 tabs Oral BID,Instr:with food or milk traMADol, 50 mg 1 tabs, Oral, q6hr, # 30 tabs, 0 Refill(s), called to pharmacy (Rx)
--- OUTSIDE RECORDS SUMMARY | 2017-09-02 01:09 | External Medical Summary | Referral Summary ---
:1965 Author [facility] Address [address] [place] [address] [place] [address] Care Team Providers Name Role Phone Issa Jim Daniela Primary Care Physician Encounter VC Date(s): 05/09/16 - 05/09/16 [facility] [address] [place] [address] Discharge Diagnosis: Status post right foot surgery Discharge Diagnosis: Acute left-sided back pain Discharge Disposition: 01-Home or Self Care Attending Physician: Darby Mcgee PA-C Admitting Physician: Darby Mcgee PA-C Vital Signs Most recent to oldest [Reference Range]: 1 Temperature Tympanic [36.6-38.1 degC] 36.4 degC *LOW* (05/09/16 11:11 AM) Peripheral Pulse Rate [60-100 bpm] 76 bpm (05/09/16 11:11 AM) Respiratory Rate [14-20 br/min] 18 br/min (05/09/16 11:11 AM) Blood Pressure [90-140/60-90 mmHg] 138/80 mmHg (05/09/16 11:11 AM) SpO2 97 % (05/09/16 11:11 AM) Problem List Condition Effective Dates Status [...] morphine Nausea/Vomiting Active 1latex rast test equals nguqsagq7aj eyes Medications Alocril 2% ophthalmic solution See Instructions, INSTILL ONE DROP TO EACH EYE TWICE A DAY, # 5 unknown unit, eRx: [facility] #[id number], INSTILL ONE DROP TO EACH EYE TWICE A DAY Start Date: 03/31/16 Status: OrderedamLODIPine-benazepril 10 mg-20 mg oral capsule See Instructions, TAKE ONE CAPSULE BY MOUTH DAILY, # 90 caps, 1 Refill(s), eRx: [facility] #[id number], TAKE ONE CAPSULE BY MOUTH DAILY Start Date: 11/17/15 Status: Orderedatorvastatin 10 mg oral tablet See Instructions, TAKE ONE TABLET BY MOUTH DAILY, # 90 tabs, eRx: [facility] #[id number], TAKE ONETABLET BY MOUTH DAILY Start Date: 04/24/16 Status: Orderedcyclobenzaprine 10 mg oral tablet 10 mg 1 tabs, Oral, TID, as needed for spasm, # 45 tabs, 0 Refill(s), Pharmacy: [facility] #[id number], 1 tabs Oral TID,PRN:as needed for spasm Start Date: 05/09/16 Status: OrderedDilaudid 2 mg, Oral, QID, as needed for pain, 0 Refill(s) Start Date: 04/17/16 Status: Orderedglimepiride 2 mg oral tablet See Instructions, TAKE ONE TABLET BY MOUTH TWICE A DAY, # 60 tabs, eRx: [facility] #[id number], TAKE ONE TABLET BY MOUTH TWICE A DAY Start Date: 04/06/16 Status: Orderedibuprofen 800 mg oral tablet 800 mg 1 tabs, Oral, BID, with food or milk, # 60 tabs, 2 Refill(s), Pharmacy: [facility] #[id number], 1 tabs Oral BID,Instr:with food or milk Start Date: 11/15/15 Status: OrderedLasix 40 mg oral tablet 40 mg 1 tabs, Oral, BID, # 60 tabs, 2 Refill(s), Pharmacy: [facility] # [id number], 1 tabs Oral BID Start Date: 02/03/16 [...] day), # 17 g, 2 Refill(s), Pharmacy: [facility] #[id number] Start Date: 02/28/16 Status: OrderedNorco 7.5 mg-325 mg oral tablet 1 tabs, Oral, q6hr, as needed for pain, # 30 tabs, 0 Refill(s) Start Date: 04/26/16 Status: OrderedPremarin 0.625 mg oral tablet See Instructions, TAKE ONE TABLET BY MOUTH DAILY, # 90 tabs, eRx: [facility] #[id number], TAKE ONETABLET BY MOUTH DAILY Start Date: 02/20/16 Status: OrderedProventil HFA 90 mcg/inh inhalation aerosol See Instructions, as needed for wheezing, 1 puffs Inhalation q4-6hr, # 1 Each, 2 Refill(s), Pharmacy: [facility] #[id number] Start Date: 07/09/14 Status: OrderedTylenol Extra Strength [...] 1DOS 04/26/16 GP 42 days 06/08/16 R [id number] hcjbqvjeom4f/biopsy tubulovillous adenoma no Crohn's repeat [id number] Borja Social History Social History Type Response Smoking Status Never smoker Assessment and Plan Extracted from: Title: Office Visit Note- Back Pain Author: Darby Mcgee PA-C Date: 05/09/16 Assessment/Plan Acute left-sided back pain The pt drove herself to clinic today. Will give Toradol 60mg IM in clinic for pain. Will also send out Flexeril for spasms. I also recommended Prednisone 40mg daily for 5 da ys, but the pt states that she has some Prednisone at home. If she does not, she may call in to clinic and we can send a script out. She also has [place] and Dilaudid at home already, and may take this if needed for severe pain. Continue with heat, and alternate with ice. Try light stretches. I offered x-ray, but she declined. Also offered UA, but declined. Also offered PT, but pt would like to try medi cations first. RTC if not improving. To ED if worsening. Ordered: cyclobenzaprine, 10 mg 1 tabs, Oral, TID, as needed for spasm, # 45 tabs, 0 Refill(s), Pharmacy: [facility] #[id number], 1 tabs Oral TID,PRN:as needed for spasm Office Visit Level 3 Est 30793 Status post right foot surgery I do think that walking with the elevated boot could have caused her pain. She is supposed to continue to wear the boot for another [address] Borja did give her a l ift for her other (L) shoe to offset the elevation, but she just stopped wearing the boot. Ordered: Office Visit Level 3 Est 24693
--- OUTSIDE RECORDS SUMMARY | 2017-09-02 01:09 | External Medical Summary | Referral Summary ---
:1965 Author Organization [facility] Address [address] [place] [address] Care Team Providers Name Role Phone Luis Manuel Jim Suarez Primary Care Physician Encounter VC Date(s): 04/26/16 - 04/26/16 [facility] [address] [place] [address]- [place] Discharge Diagnosis: Plantar fasciitis of right foot Discharge Disposition: 01-Home or Self Care Attending Physician: Morgan Borja DPM Admitting Physician: Morgan Borja DPM Vital Signs Most recent to oldest [Reference Range]: 1 Temperature Temporal Artery [36.3-37.8 degC] 36.3 degC (04/26/16 11:06 AM) Peripheral Pulse Rate [60-100 bpm] 71 bpm (04/26/16 11:06 AM) Respiratory Rate [14-20 br/min] 16 br/min (04/26/16 11:06 AM) Blood Pressure [90-140/60-90 mmHg] 152/86 mmHg *HI* (04/26/16 11:06 AM) SpO2 97 % (04/26/16 11:06 AM) Problem List Condition Effective Dates Status [...] Adverse Reactions, Alerts Substance Reaction Severity Status Latex1, 2 Swelling Active morphine Nausea/Vomiting Active 1latex rast test equals [id number] eyes Medications Alocril 2% ophthalmic solution See Instructions, INSTILL ONE DROP TO EACH EYE TWICE A DAY, # 5 unknown unit, eRx: [facility] #[id number], INSTILL ONE DROP TO EACH EYE TWICE A DAY Start Date: 03/31/16 Status: OrderedamLODIPine-benazepril 10 mg-20 mg oral capsule See Instructions, TAKE ONE CAPSULE BY MOUTH DAILY, # 90 caps, 1 Refill(s), eRx: [facility] #[id number], TAKE ONE CAPSULE BY MOUTH DAILY Start Date: 11/17/15 Status: Orderedatorvastatin 10 mg oral tablet See Instructions, TAKE ONE TABLET BY MOUTH DAILY, # 90 tabs, eRx: [facility] #[id number], TAKE ONETABLET BY MOUTH DAILY Start Date: 04/24/16 Status: OrderedDilaudid 2 mg, Oral, QID, as needed for pain, 0 Refill(s) Start Date: 04/17/16 Status: Orderedglimepiride 2 mg oral tablet See Instructions, TAKE ONE TABLET BY MOUTH TWICE A DAY, # 60 tabs, eRx: [facility] #[id number], TAKE ONE TABLET BY MOUTH TWICE A DAY Start Date: 04/06/16 Status: Orderedibuprofen 800 mg oral tablet 800 mg 1 tabs, Oral, BID, with food or milk, # 60 tabs, 2 Refill(s), Pharmacy: [facility] #[id number], 1 tabs Oral BID,Instr:with food or milk Start Date: 11/15/15 Status: OrderedLasix 40 mg oral tablet 40 mg 1 tabs, Oral, BID, # 60 tabs, 2 Refill(s), Pharmacy: [facility] # [id number], 1 tabs Oral BID Start Date: 02/03/16 [...] # 17 g, 2 Refill(s), Pharmacy: [facility] #[id number] Start Date: 02/28/16 Status: OrderedNorco 7.5 mg-325 mg oral tablet 1 tabs, Oral, q6hr, as needed for pain, # 30 tabs, 0 Refill(s) Start Date: 04/26/16 Status: OrderedPremarin 0.625 mg oral tablet See Instructions, TAKE ONE TABLET BY MOUTH DAILY, # 90 tabs, eRx: [facility] #[id number], TAKE ONETABLET BY MOUTH DAILY Start Date: 02/20/16 Status: OrderedProventil HFA 90 mcg/inh inhalation aerosol See Instructions, as needed for wheezing, 1 puffs Inhalation q4-6hr, # 1 Each, 2 Refill(s), Pharmacy: [facility] #[id number] Start Date: 07/09/14 Status: OrderedTylenol Extra Strength mg, Oral, q6hr, 0 Refill(s) Start Date: 11/15/15 Status: Ordered Results Chemistry Most recent to oldest [Reference Range]: 1 Blood Glucose, Capillary [74-106 mg/dL] 91 mg/dL (04/26/16 11:21 AM) Immunizations No data available for this section Procedures Procedure Date Related Diagnosis Body Site Laparoscopic cholecystectomy1 07/22/14 Colonoscopy2 06/11/13 removal of ganglion cyst Rt foot3 03/04/12 Cystoscopy 05/06/09 RT Carpal tunnel release 01/26/09 Hysterectomy 1991 Breast reduction 1983 Appendectomy 1977 LT Carpal tunnel release 1Biliary srzejdzxfv7u/biopsy tubulovillous adenoma no Crohn's repeat [id number] Borja Social History Social History Type Response Smoking Status Never smoker Assessment and Plan Extracted from: Title: Ambulatory Patient Education Author: Niki Ochoa RN Date: 04/26/16 Outpatient Surgery Guidelines -Keep dressing intact to the operative foot until your first post operative appointment. -Weight bearing as tolerated in cam walker and may use crutches as needed. -May remove cam walker while icing the operative site. -Wear cam walker while sleeping until next appointment. -Ice the operative site for 10 to 15 minutes every 1 to 2 hours next 5 to 7 days. -Elevate the operative foot above the heart. Call the number below If fever is over 102.0 Next dose of pain medicine may be given at _ If any problems occur or if you have any further questions, please contact your physician. In an emergency, call [phone] ([phone]), if you cannot reach your physician. If you find that you cannot contact your physician, but feel that your signs and symptoms warrant a physicians attention, go to an Emergency room which is the closest to you. Do NOT drive or operate hazardous machinery for 24 hours or while taking pain medication. Do not sign any important documents or make important decisions for 24 hours following surgery. When taking pain medicine, be careful as you walk or climb stairs as dizziness is not unusual. Check temperature every four hours during the day for two days. Follow Up With: Where: When: [facility]; [place] [address] Business (1) 05/07/2016 09:00:00 Comments: Appointment Scheduled
--- OUTSIDE RECORDS SUMMARY | 2017-09-02 01:09 | External Medical Summary | Referral Summary ---
:1965 Author Organization [facility] Address [address] [place] [address] Care Team Providers Name Role Phone Luis Manuel Jim Suarez Primary Care Physician Encounter VC Date(s): 11/08/14 - 11/08/14 [facility] [address] [place] [address]- [place] Discharge Diagnosis: Bilateral plantar [...] # 5 unknown unit, eRx: [facility] #[id number], INSTILL ONE DROP TO EACH EYE TWICE A DAY Start Date: 03/29/14 Status: OrderedLasix 40 mg oral tablet See Instructions, TAKE ONE TABLET BY MOUTH EVERY DAY, # 90 tabs, 1 Refill(s), eRx: [facility] #[id number], TAKE ONE TABLET BY MOUTH EVERY DAY Start Date: 03/29/15 Status: OrderedLipitor 10 mg oral tablet See Instructions, TAKE ONE TABLET BY MOUTH ONCE A DAY, # 90 tabs, 1 Refill(s), eRx: [facility]#[id number], TAKE ONE TABLET BY MOUTH ONCE A DAY Start Date: 01/17/15 Status: OrderedLotrel 10 mg-20 mg oral capsule 1 caps, Oral, Daily, PT. NEEDS TO SCHEDULE A CDM APPT. AND NEEDS LABS DONE., # 90 caps, 0 Refill(s),Pharmacy: [facility] #[id number] Start Date: 05/13/15 Status: Orderedmeloxicam 7.5 mg oral tablet See Instructions, TAKE ONE TABLET BY MOUTH DAILY, # 90 tabs, 5 Refill(s), eRx: [facility] #[id number], TAKE ONE TABLET BY MOUTH DAILY Start Date: 01/17/15 Status: OrderedPremarin 0.625 mg oral tablet See Instructions, TAKE ONE TABLET BY MOUTH DAILY, # 90 tabs, 1 Refill(s), eRx: [facility] #[id number], TAKE ONE TABLET BY MOUTH DAILY Start Date: 05/16/15 Status: OrderedProventil HFA 90 mcg/inh inhalation aerosol See Instructions, as needed for wheezing, 1 puffs Inhalation q4-6hr, # 1 Each, 2 Refill(s), Pharmacy: [facility] #[id number] Start Date: 07/09/14 Status: OrderedRhinocort Aqua 32 mcg/inh nasal spray 1 sprays, Nasal, Daily, # 8.6 g, 1 Refill(s), Pharmacy: [facility] #[id number] Start Date: 12/31/14 Status: OrderedTylenol PM See [...] tunnel release 01/26/09 Hysterectomy 1990 Breast reduction 1984 Appendectomy 1977 LT Carpal tunnel release 1Biliary viipitjywf1b/biopsy tubulovillous adenoma no Crohn's repeat [id number] Borja Social History Social History Type [...]
--- OUTSIDE RECORDS SUMMARY | 2017-09-02 01:09 | External Medical Summary | Referral Summary ---
:1965 Author Organization [facility] Address [address] [place] [address] [place] [address] Care Team Providers Name Role Phone Jim Issa Primary Care Physician Encounter VC Date(s): 04/21/15 - 04/21/15 [facility] [place] [address] [place] Discharge [...] A DAY, # 5 unknown unit, eRx: [facility] #[id number], INSTILL ONE DROP TO EACH EYE TWICE A DAY Start Date: 03/29/14 Status: Orderedatorvastatin 10 mg oral tablet See Instructions, TAKE ONE TABLET BY MOUTH DAILY, # 90 tabs, eRx: [facility] #[id number], TAKE ONETABLET BY MOUTH DAILY Start Date: 10/27/15 Status: OrderedLotrel 10 mg-20 mg oral capsule See Instructions, TAKE ONE CAPSULE BY MOUTH DAILY, # 90 caps, eRx: [facility] #[id number], TAKE ONE CAPSULE BY MOUTH DAILY Start Date: 08/17/15 Status: OrderedMiraLax oral powder for reconstitution 17 g, Oral, Daily, dissolve in water before taking, # 255 g, 0 Refill(s) Start Date: 10/10/15 Status: OrderedNeurontin 100 mg oral capsule 100 mg 1 caps, Oral, TID, # 90 caps, 2 Refill(s), Pharmacy: [facility] # [id number], 1 caps Oral TID Start Date: 10/26/15 Status: OrderedprednisoLONE 5 mg oral tablet 5 mg 1 tabs, Oral, Daily, # 30 tabs, 1 Refill(s), Pharmacy: [facility] # [id number], to start on 11/10/15, 1 tabs Oral Daily Start Date: 10/10/15 Status: OrderedpredniSONE 5 mg oral tablet See Instructions, 4 tabs oral daily x7 days, then 2 tabs oral daily x7 days, then 5mg oral daily, # 56 tabs, 0 Refill(s), Pharmacy: [facility] #[id number] , 4 tabs oral daily x7 days, then 2 tabs oraldaily x7 days, then 5mg oral daily Start Date: 10/10/15 Stop Date: 11/09/15 Status: OrderedPremarin 0.625 mg oral tablet See Instructions, TAKE ONE TABLET BY MOUTH DAILY, # 90 tabs, 1 Refill(s), eRx: [facility] #[id number], TAKE ONE TABLET BY MOUTH DAILY Start Date: 05/16/15 Status: OrderedProventil HFA 90 mcg/inh inhalation aerosol See Instructions, as needed for wheezing, 1 puffs Inhalation q4-6hr, # 1 Each, 2 Refill(s), Pharmacy: [facility] #[id number] Start Date: 07/09/14 Status: OrderedRhinocort Aqua 32 mcg/inh nasal spray See Instructions, SPRAY ONE SPRAY IN EACH NOSTRIL ONCE DAILY, # 8.6 sprays, eRx : [facility] #[id number], SPRAY ONE SPRAY IN EACH NOSTRIL ONCE [...] Appendectomy 1977 LT Carpal tunnel release 1Biliary krieebovuh7y/biopsy tubulovillous adenoma no Crohn's repeat [id number] Borja Social History Social History Type [...] possible to help prevent swelling. Only take nvel-vyk-gldodfc or prescription medicines for pain, discomfort , [...] Document Reviewed: 06/07/2012 Exit[employer] Patient Information 2015 [facility], [facility]. This information is not intended to replace [...] 08/01/2005 Document Revised: 09/15/2012 Document Reviewed: 06/24/2006 [facility] [place] Patient Information 2015 [employer]. This information is not intended to replace [...] available. Ordered: Office Visit Level 4 Est 91303 XR Scapula Left XR Shoulder Complete Left [...] available. Ordered: Office Visit Level 4 Est 30641 XR Ribs w/ PA Chest Left
--- OUTSIDE RECORDS SUMMARY | 2017-09-02 01:09 | External Medical Summary | Continuity of Care Document ---
:1965 Author Organization [facility] Allergies There is no data. Medications There is no data. Problems There is no data. Procedures There is no data. Results There is no data. Encounters ACCT No. Visit Discharge Status Pt. Type Provider Facility Loc./Unit Complaint Date/Time [id number] 09/17/2013 09/17/2013 CLS Outpatient 08:01:00 23:59:59 [id number] 09/09/2013 09/09/2013 CLS Outpatient 14:33:00 23:59:59
--- OUTSIDE RECORDS SUMMARY | 2017-09-02 01:09 | External Medical Summary | Referral Summary ---
:1965 Author Organization [facility] Address [address] [place] [address] [place] [address] Care Team Providers Name Role Phone Jim Issa Primary Care Physician Encounter VC Date(s): 02/10/16 - 02/10/16 [facility] [address] [place] [address] Discharge Disposition: 01-Home or Self Care Attending Physician: Jim Issa MD Admitting Physician: Jim Issa MD Vital Signs Most recent to oldest [Reference Range]: 1 Blood Pressure [90-140/60-90 mmHg] 126/78 mmHg (02/10/16 2:46 PM) Problem List Condition Effective Dates Status [...] # 5 unknown unit, eRx: [facility] #[id number], INSTILL ONE DROP TO EACH EYE TWICE A DAY Start Date: 03/29/14 Status: OrderedamLODIPine-benazepril 10 mg-20 mg oral capsule See Instructions, TAKE ONE CAPSULE BY MOUTH DAILY, # 90 caps, 1 Refill(s), eRx: [facility] #[id number], TAKE ONE CAPSULE BY MOUTH DAILY Start Date: 11/17/15 Status: Orderedatorvastatin 10 mg oral tablet See Instructions, TAKE ONE TABLET BY MOUTH DAILY, # 90 tabs, eRx: [facility] #[id number], TAKE ONETABLET BY MOUTH DAILY Start Date: 02/01/16 Status: Orderedibuprofen 800 mg oral tablet 800 mg 1 tabs, Oral, BID, with food or milk, # 60 tabs, 2 Refill(s), Pharmacy: [facility] #[id number], 1 tabs Oral BID,Instr:with food or milk Start Date: 11/15/15 Status: OrderedLasix 40 mg oral tablet 40 mg 1 tabs, Oral, BID, # 60 tabs, 2 Refill(s), Pharmacy: [facility] # [id number], 1 tabs Oral BID Start Date: 02/03/16 Status: OrderedMiraLax oral powder for reconstitution 17 g, Oral, Daily, dissolve in water before taking, # 255 g, 0 Refill(s) Start Date: 10/10/15 Status: OrderedPremarin 0.625 mg oral tablet See Instructions, TAKE ONE TABLET BY MOUTH DAILY, # 90 tabs, eRx: [facility] #[id number], TAKE ONETABLET BY MOUTH DAILY Start Date: 11/21/15 Status: OrderedProventil HFA 90 mcg/inh inhalation aerosol See Instructions, as needed for wheezing, 1 puffs Inhalation q4-6hr, # 1 Each, 2 Refill(s), Pharmacy: [facility] #[id number] Start Date: 07/09/14 Status: OrderedRhinocort Aqua 32 mcg/inh nasal spray See Instructions, SPRAY ONE SPRAY IN EACH NOSTRIL ONCE DAILY, # 8.6 sprays, eRx : [facility] #[id number], SPRAY ONE SPRAY IN EACH NOSTRIL ONCE [...] [Reference Range]: 1 Sodium Lvl [135-144 mEq/L] 139 mEq/L (02/10/16 3:12 PM) Potassium Lvl [3.5-5.2 mEq/L] 3.6 mEq/L (02/10/16 3:12 PM) Chloride [99-111 mEq/L] 102 mEq/L (02/10/16 3:12 PM) CO2 [22-31 mEq/L] 25 mEq/L (02/10/16 3:12 PM) AGAP [3-20] 12 (02/10/16 3:12 PM) BUN [10-20 mg/dL] 11 mg/dL (02/10/16 3:12 PM) Glucose Lvl [70-99 mg/dL] 233 mg/dL *HI* (02/10/16 3:12 PM) Creatinine Lvl [0.57-1.11 mg/dL] 0.78 mg/dL (02/10/16 3:12 PM) eGFR [>60 mL/min] >60 mL/min 1 (02/10/16 3:12 PM) Calcium Lvl [8.9-10.5 mg/dL] 9.4 mg/dL (02/10/16 3:12 PM) 1Result Comment: Multiply eGFR results by 1.21 for race. Immunizations No data available for this section Procedures Procedure Date Related Diagnosis Body Site Laparoscopic cholecystectomy1 07/22/14 Colonoscopy2 06/11/13 removal of ganglion cyst Rt foot3 03/04/12 Cystoscopy 05/06/09 RT Carpal tunnel release 01/26/09 Hysterectomy 1991 Breast reduction 1983 Appendectomy 1977 LT Carpal tunnel release 1Biliary hzbwrgcgfl0b/biopsy tubulovillous adenoma no Crohn's repeat [id number] Borja Social History Social History Type Response Smoking Status Never smoker Assessment and Plan No data available for this section
--- OUTSIDE RECORDS SUMMARY | 2017-09-02 01:09 | External Medical Summary | Referral Summary ---
:1965 Author Organization [facility] Address [address] [place] [address] [place] [address] Care Team Providers Name Role Phone Issa Jim Daniela Primary Care Physician Encounter VC Date(s): 01/13/15 - 01/13/15 [facility] [address] [place] [address] [place] Discharge Diagnosis: Sinusitis Discharge Disposition: 01-Home or Self Care Attending Physician: Alondra Storey APRN Admitting Physician: Alondra Storey APRN Vital Signs Most recent to oldest [Reference Range]: 1 Temperature Tympanic [36.6-38.1 degC] 36.2 degC *LOW* (01/13/15 10:54 AM) Peripheral Pulse Rate [60-100 bpm] 78 bpm (01/13/15 10:54 AM) Blood Pressure [90-140/60-90 mmHg] 128/74 mmHg (01/13/15 10:54 AM) Problem List Condition Effective Dates Status [...] A DAY, # 5 unknown unit, eRx: [facility] #[id number], INSTILL ONE DROP TO EACH EYE TWICE A DAY Start Date: 03/29/14 Status: OrderedLasix 40 mg oral tablet See Instructions, TAKE ONE TABLET BY MOUTH EVERY DAY, # 90 tabs, 1 Refill(s), eRx: [facility] #[id number], TAKE ONE TABLET BY MOUTH EVERY DAY Start Date: 03/29/15 Status: OrderedLipitor 10 mg oral tablet See Instructions, TAKE ONE TABLET BY MOUTH DAILY, # 90 tabs, eRx: [facility] #[id number], TAKE ONETABLET BY MOUTH DAILY Start Date: 07/25/15 Status: OrderedLotrel 10 mg-20 mg oral capsule 1 caps, Oral, Daily, PT. NEEDS TO SCHEDULE A CDM APPT. AND NEEDS LABS DONE., # 90 caps, 0 Refill(s),Pharmacy: [facility] #[id number] Start Date: 05/13/15 Status: Orderedmeloxicam 7.5 mg oral tablet See Instructions, TAKE ONE TABLET BY MOUTH DAILY, # 90 tabs, 5 Refill(s), eRx: [facility] #[id number], TAKE ONE TABLET BY MOUTH DAILY Start Date: 01/17/15 Status: OrderedPremarin 0.625 mg oral tablet See Instructions, TAKE ONE TABLET BY MOUTH DAILY, # 90 tabs, 1 Refill(s), eRx: [facility] #[id number], TAKE ONE TABLET BY MOUTH DAILY Start Date: 05/16/15 Status: OrderedProventil HFA 90 mcg/inh inhalation aerosol See Instructions, as needed for wheezing, 1 puffs Inhalation q4-6hr, # 1 Each, 2 Refill(s), Pharmacy: [facility] #[id number] Start Date: 07/09/14 Status: OrderedRhinocort Aqua 32 mcg/inh nasal spray 1 sprays, Nasal, Daily, # 8.6 g, 1 Refill(s), Pharmacy: [facility] #[id number] Start Date: 12/31/14 Status: OrderedTylenol PM See [...] Appendectomy 1977 LT Carpal tunnel release 1Biliary ewvqqiwmvs2x/biopsy tubulovillous adenoma no Crohn's repeat [id number] Borja Social History Social History Type Response Smoking Status Never smoker Assessment and Plan No data available for this section
--- OUTSIDE RECORDS SUMMARY | 2017-09-02 01:09 | External Medical Summary | Referral Summary ---
:1965 Author [facility] Address [address] [place] [address] [place] [address] Care Team Providers Name Role Phone Jim Issa Primary Care Physician Encounter VC Date(s): 12/31/14 - 12/31/14 [facility] [address] [place] [address] [place] Discharge Disposition: 01-Home or Self Care Attending Physician: Jim Issa MD Admitting Physician: Jim Issa MD Vital Signs Most recent to oldest [Reference Range]: 1 Blood Pressure [90-140/60-90 mmHg] 112/68 mmHg (12/31/14 11:13 AM) Problem List Condition Effective Dates Status [...] # 5 unknown unit, eRx: [facility] #[id number], INSTILL ONE DROP TO EACH EYE TWICE A DAY Start Date: 03/29/14 Status: OrderedLasix 40 mg oral tablet See Instructions, TAKE ONE TABLET BY MOUTH EVERY DAY, # 90 tabs, 1 Refill(s), eRx: [facility] #[id number], TAKE ONE TABLET BY MOUTH EVERY DAY Start Date: 03/29/15 Status: OrderedLipitor 10 mg oral tablet See Instructions, TAKE ONE TABLET BY MOUTH ONCE A DAY, # 90 tabs, 1 Refill(s), eRx: [facility]#[id number], TAKE ONE TABLET BY MOUTH ONCE A DAY Start Date: 01/17/15 Status: OrderedLotrel 10 mg-20 mg oral capsule 1 caps, Oral, Daily, PT. NEEDS TO SCHEDULE A CDM APPT. AND NEEDS LABS DONE., # 90 caps, 0 Refill(s),Pharmacy: [facility] #[id number] Start Date: 05/13/15 Status: Orderedmeloxicam 7.5 mg oral tablet See Instructions, TAKE ONE TABLET BY MOUTH DAILY, # 90 tabs, 5 Refill(s), eRx: [facility] #[id number], TAKE ONE TABLET BY MOUTH DAILY Start Date: 01/17/15 Status: OrderedPremarin 0.625 mg oral tablet See Instructions, TAKE ONE TABLET BY MOUTH DAILY, # 90 tabs, 1 Refill(s), eRx: [facility] #[id number], TAKE ONE TABLET BY MOUTH DAILY Start Date: 05/16/15 Status: OrderedProventil HFA 90 mcg/inh inhalation aerosol See Instructions, as needed for wheezing, 1 puffs Inhalation q4-6hr, # 1 Each, 2 Refill(s), Pharmacy: [facility] #[id number] Start Date: 07/09/14 Status: OrderedRhinocort Aqua 32 mcg/inh nasal spray 1 sprays, Nasal, Daily, # 8.6 g, 1 Refill(s), Pharmacy: [facility] #[id number] Start Date: 12/31/14 Status: OrderedTylenol PM See [...] Appendectomy 1977 LT Carpal tunnel release 1Biliary eglknettha8b/biopsy tubulovillous adenoma no Crohn's repeat [id number] Borja Social History Social History Type Response Smoking Status Never smoker Assessment and Plan Extracted from: Title: Ambulatory Patient Education Author: Jim Issa MD Date: 01/11/15 Family Medicine Diabetes, Type 2, Am I At Risk? Diabetes is a lasting (chronic ) disease. In type 2 diabetes, the pancreas does not make enough insulin, and the body does not respond normally to the insulin that is made. This type of diabetes was als o previously called adult onset diabetes . About 90% of all those who have diabetes have type 2. It usually occurs after the age of 40, but can occur at any age. People develop type 2 diabetes because they do not use insulin properly. Eventually, the pancreas cannot make enough insulin for the body's needs. Over time, the amount of glucose (sugar ) in the blood increases. RISK FACTORS Overweight the more weight you have, the more resistant your cells become to insulin. Family history you are more likely to get diabetes if a parent or sibling has diabetes. Race certain races get diabetes more. Americans. [place]. Americans. Hispanics. . Inactive exercise helps control weight and helps your cells be more sensitive to insulin. Gestational diabetes some women develop diabetes while they are . This goes away when they deliver. However, they are 50-60% more likely to develop type 2 diabetes at a later time. Having a baby over 9 pounds a sign that you may have had gestational diabetes. Age the risk of diabetes goes up as you get older, especially after age 45. High blood pressure (hypertension ). SYMPTOMS Many people have no signs or symptoms. Symptoms can be so mild that you might not even notice them. Some of these signs are: Increased thirst. Increased hunger. Tiredness (fatigue ). Increased urination, especially at night. Weight loss. Blurred vision. Sores that do not heal. WHO SHOULD BE TESTED? Anyone 45 years or older, especially if overweight, should consider getting tested. If you are younger than 45, overweight, and have one or more of the risk factors, you should consider getting tested. DIAGNOSIS Fasting blood glucose (FBS). Usually, 2 are done. FBS 101-125 mg/dl is considered pre-diabetes. FBS 126 mg/dl or greater is considered diabetes. 2 hour Oral Glucose Tolerance Test (OGTT). This test is preformed by first having you not eat or drink for several hours. You are then given something sweet to drink and your blood glucose is measu red fasting, at one hour and 2 hours. This test tells how well you are able to handle sugars or carbohydrates. Fastin-100 mg/dl. 1 hour: less than 200 mg/dl. 2 hours: less than 140 mg/dl. A1c A1c is a blood glucose test that gives and average of your blood glucose over 3 months. It is the accepted method to use to diagnose diabetes. A1c 5.7-6.4% is considered pre-diabetes. A1c 6.5% or greater is considered diabetes. WHAT DOES IT MEAN TO HAVE PRE-DIABETES? Pre-diabetes means you are at risk for getting type 2 diabetes. Your blood glucose is higher than normal, but not yet high enough to diagnose diabetes. The good news is, if you have pre-diabetes you can reduce the risk of getting diabetes and even return to normal blood glucose levels. With modest weight loss and moderate physical activity, you can delay or prevent type 2 diabetes. PREVENTION You cannot do anything about race, age or family history, but you can lower your chances of getting diabetes. You can: Exercise regularly and be active. Reduce fat and calorie intake. Make simon food choices as much as you can. Reduce your intake of salt and alcohol. Maintain a reasonable weight. Keep blood pressure in an acceptable range. Take medication if needed. Not smoke. Maintain an acceptable cholesterol level (HDL, LDL, Triglycerides). Take medication if needed. DOING MY PART: GETTING STARTED Making big changes in your life is hard, especially if you are faced with more than one change. You can make it easier by taking these steps: Make a plan to change behavior. Decide exactly what you will do and when you will do it. Plan what you need to get ready. Think about what might prevent you from reaching your goals. Find family and friends who will support and encourage you. Decide how you will reward yourself when you do what you have planned. Your doctor, dietitian, or counselor can help you make a plan. HERE ARE SOME OF THE AREAS YOU MAY WISH TO CHANGE TO REDUCE YOUR RISK OF DIABETES. If you are overweight or obese, choose sensible ways to get in shape. Even small amounts of weight loss, like 5-10 pounds, can help reduce the effects of insulin resistance and help blood glucose control. Diet Avoid crash diets. Instead, eat less of the foods you usually have. Limit the amount of fat you eat. Increase your physical activity. Aim for at least 30 minutes of exercise most days of the week. Set a reasonable weight-loss goal, such as losing 1 pound a week. Aim for a long-term goal of losing 5-7% of your total body weight. Make simon food choices most of the time. What you eat has a big impact on your health. By making simon food choices , you can help control your body weight, blood pressure, and cholesterol. Take a hard look at the serving sizes of the foods you eat. Reduce serving sizes of meat, desserts, and foods high in fat. Increase your intake of fruits and vegetables. Limit your fat intake to about 25% of your total calories. For example, if your food choices add up to about 2,000 calories a day, try to eat no more than 56 grams of fat. Your caregiver or a dieti peter can help you figure out how much fat to have. You can check food labels for fat content too. You may also want to reduce the number of calories you have each day. Keep a food log. Write down what you eat, how much you eat, and anything else that helps keep you on track. When you meet your goal, reward yourself with a nonfood item or activity. Exercise Be physically active every day. Keep and exercise log. Write down what exercise you did, for how long, and anything else that keeps you on track. Regular exercise (like brisk walking) tackles several risk factors at once. It helps you lose weight, it keeps your cholesterol and blood pressure under control, and it helps your body use insulin. People who are physically active for 30 minutes a day, 5 days a week, reduced their risk of type 2 diabetes. If you are not very active, you should start slowly at first. Talk with your caregiver first about what kinds of exercise would be safe for you. Make a plan to increase your activity level with the goal of being active for at least 30 minutes a day , most days of the week. Choose activities you enjoy. Here are some ways to work extra activity into your daily routine: Take the stairs rather than an elevator or escalator. Park at the far end of the lot and walk. Get off the bus a few stops early and walk the rest of the way. Walk or bicycle instead of drive whenever you can. Medications Some people need medication to help control their blood pressure or cholesterol levels. If you do, take your medicines as directed. Ask your caregiver whether there are any medicines you can take to prevent type 2 diabetes. Document Released: 06/26/2004 Document Revised: 09/15/2012 Document Reviewed: 03/22/2010 ExitCare Patient Information 2014 [employer]. Irritable Bowel Syndrome Irritable Bowel Syndrome (IBS) is caused by a disturbance of normal bowel function. Other terms used are spastic colon, mucous colitis, and irritable colon. It does not require surgery, nor does service unit operator oil well to cancer. There is no cure for IBS. But with proper diet, stress reduction, and medication, you will find that your problems (symptoms ) will gradually disappear or improve. IBS is a common digestive disorder. It usually appears in late adolescence or early adulthood. Women develop it twice as often as men. CAUSES After food has been digested and absorbed in the small intestine, waste material is moved into the colon (large intestine ). In the colon, water and salts are absorbed from the undigested products comin g from the small intestine. The remaining residue, or fecal material, is held for elimination. Under normal circumstances, gentle, rhythmic contractions on the bowel holland push the fecal material along the colon towards the rectum. In IBS, however, these contractions are irregular and poorly coordinated. The fecal material is either retained too long , resulting in constipation, or expelled too soon, producing diarrhea. SYMPTOMS The most common symptom of IBS is pain. It is typically in the lower left side of the belly (abdomen ). But it may occur anywhere in the abdomen. It can be felt as heartburn, backache, or even as a dull pain in the arms or shoulders. The pain comes from excessive bowel-muscle spasms and from the buildup of gas and fecal material in the colon. This pain: Can range from sharp belly (abdominal ) cramps to a dull, continuous ache. Usually worsens soon after eating. Is typically relieved by having a bowel movement or passing gas. Abdominal pain is usually accompanied by constipation. But it may also produce diarrhea. The diarrhea typically occurs right after a meal or upon arising in the morning. The stools are typically soft an d watery. They are often flecked with secretions (mucus ). Other symptoms of IBS include: Bloating. Loss of appetite. Heartburn. Feeling sick to your stomach (nausea ). Belching Vomiting Gas. IBS may also cause a number of symptoms that are unrelated to the digestive system: Fatigue. Headaches. Anxiety Shortness of breath Difficulty in concentrating. Dizziness. These symptoms tend to come and go. DIAGNOSIS The symptoms of IBS closely mimic the symptoms of other, more serious digestive disorders. So your caregiver may wish to perform a variety of additional tests to exclude these disorders. He/she wants to be certain of learning what is wrong (diagnosis ). The nature and purpose of each test will be explained to you. TREATMENT A number of medications are available to help correct bowel function and/or relieve bowel spasms and abdominal pain. Among the drugs available are: Mild, non-irritating laxatives for severe constipation and to help restore normal bowel habits. Specific anti-diarrheal medications to treat severe or prolonged diarrhea. Anti-spasmodic agents to relieve intestinal cramps. Your caregiver may also decide to treat you with a mild tranquilizer or sedative during unusually stressful periods in your life. The important thing to remember is that if any drug is prescribed for you, make sure that you take it exactly as directed. Make sure that your caregiver knows how well it worked for you. HOME CARE INSTRUCTIONS Avoid foods that are high in fat or oils. Some examples are:heavy cream, butter, frankfurters, sausage, and other fatty meats. Avoid foods that have a laxative effect, such as fruit, fruit juice, and dairy products. Cut out carbonated drinks, chewing gum, and "gassy" foods, such as beans and cabbage. This may help relieve bloating and belching. Bran taken with plenty of liquids may help relieve constipation. Keep track of what foods seem to trigger your symptoms. Avoid emotionally charged situations or circumstances that produce anxiety. Start or continue exercising. Get plenty of rest and sleep. MAKE SURE YOU: Understand these instructions. Will watch your condition. Will get help right away if you are not doing well or get worse. Document Released: 06/24/2006 Document Revised: 09/15/2012 Document Reviewed: 02/11/2009 ExitCare Patient Information 2014 ExitCare, [facility]. No follow up information was provided. Extracted from: Title: Office Visit Note Author: Jim Issa MD Date: 12/31/14 Assessment/Plan Hypertension Continue with the current medications. Ordered: Office Visit Level 3 Est 82592 IBS (irritable bowel syndrome) Rx for Bentyl. Ordered: Office Visit Level 3 Est 81493 Overweight Ordered: Office Visit Level 3 Est 19447
--- OUTSIDE RECORDS SUMMARY | 2017-09-02 01:09 | External Medical Summary | Referral Summary ---
:1965 Author Organization [facility] Address [address] [place] [address] [place] [address] Care Team Providers Name Role Phone Jim Issa Primary Care Physician Encounter VC Date(s): 02/03/16 - 02/03/16 [facility] [place] [address] [place] Discharge Disposition: 01-Home or Self Care Attending Physician: Jim Issa MD Admitting Physician: Jim Issa MD Vital Signs Most recent to oldest [Reference Range]: 1 Peripheral Pulse Rate [60-100 bpm] 74 bpm (02/03/16 1:28 PM) Blood Pressure [90-140/60-90 mmHg] 138/78 mmHg (02/03/16 1:28 PM) Problem List Condition Effective Dates Status [...] A DAY, # 5 unknown unit, eRx: [facility] #[id number], INSTILL ONE DROP TO EACH EYE TWICE A DAY Start Date: 03/29/14 Status: OrderedamLODIPine-benazepril 10 mg-20 mg oral capsule See Instructions, TAKE ONE CAPSULE BY MOUTH DAILY, # 90 caps, 1 Refill(s), eRx: [facility] #[id number], TAKE ONE CAPSULE BY MOUTH DAILY Start Date: 11/17/15 Status: Orderedatorvastatin 10 mg oral tablet See Instructions, TAKE ONE TABLET BY MOUTH DAILY, # 90 tabs, eRx: [facility] #[id number], TAKE ONETABLET BY MOUTH DAILY Start Date: 02/01/16 Status: Orderedfurosemide 40 mg oral tablet See Instructions, TAKE ONE TABLET BY MOUTH EVERY DAY, # 90 tabs, eRx: [facility] #[id number], TAKEONE TABLET BY MOUTH EVERY DAY Start Date: 01/20/16 Status: Orderedibuprofen 800 mg oral tablet 800 mg 1 tabs, Oral, BID, with food or milk, # 60 tabs, 2 Refill(s), Pharmacy: [facility] #[id number], 1 tabs Oral BID,Instr:with food or milk Start Date: 11/15/15 Status: OrderedLasix 40 mg oral tablet 40 mg 1 tabs, Oral, BID, # 60 tabs, 2 Refill(s), Pharmacy: [facility] # [id number], 1 tabs Oral BID Start Date: 02/03/16 Status: OrderedMiraLax oral powder for reconstitution 17 g, Oral, Daily, dissolve in water before taking, # 255 g, 0 Refill(s) Start Date: 10/10/15 Status: OrderedPremarin 0.625 mg oral tablet See Instructions, TAKE ONE TABLET BY MOUTH DAILY, # 90 tabs, eRx: [facility] #[id number], TAKE ONETABLET BY MOUTH DAILY Start Date: 11/21/15 Status: OrderedProventil HFA 90 mcg/inh inhalation aerosol See Instructions, as needed for wheezing, 1 puffs Inhalation q4-6hr, # 1 Each, 2 Refill(s), Pharmacy: [facility] #[id number] Start Date: 07/09/14 Status: OrderedRhinocort Aqua 32 mcg/inh nasal spray See Instructions, SPRAY ONE SPRAY IN EACH NOSTRIL ONCE DAILY, # 8.6 sprays, eRx : [facility] #[id number], SPRAY ONE SPRAY IN EACH NOSTRIL ONCE DAILY Start Date: 09/13/15 Status: OrderedtraMADol 50 mg oral tablet 50 mg 1 tabs, Oral, q4hr, as needed for pain, Max of 8 per day., # 60 tabs, 0 Refill(s) Start Date: 02/03/16 Status: OrderedTylenol Extra Strength mg, Oral, q6hr, 0 Refill(s) Start Date: 11/15/15 Status: Ordered Results Hematology Most recent to oldest [Reference Range]: 1 Sed Rate [0-23] 8 (02/03/16 2:08 PM) Chemistry Most recent to oldest [Reference Range]: 1 Sodium Lvl [135-144 mEq/L] 139 mEq/L (02/03/16 2:08 PM) Potassium Lvl [3.5-5.2 mEq/L] 3.3 mEq/L *LOW* (02/03/16 2:08 PM) Chloride [99-111 mEq/L] 102 mEq/L (02/03/16 2:08 PM) CO2 [22-31 mEq/L] 28 mEq/L (02/03/16 2:08 PM) AGAP [3-20] 9 (02/03/16 2:08 PM) BUN [10-20 mg/dL] 14 mg/dL (02/03/16 2:08 PM) Glucose Lvl [70-99 mg/dL] 110 mg/dL *HI* (02/03/16 2:08 PM) Creatinine Lvl [0.57-1.11 mg/dL] 0.66 mg/dL (02/03/16 2:08 PM) eGFR [>60 mL/min] >60 mL/min 1 (02/03/16 2:08 PM) Calcium Lvl [8.9-10.5 mg/dL] 9.4 mg/dL (02/03/16 2:08 PM) 1Result Comment: Multiply eGFR results by 1.21 for race. Immunizations No data available for this section Procedures Procedure Date Related Diagnosis Body Site Collection of venous blood by venipuncture 02/03/16 Laparoscopic cholecystectomy1 07/22/14 Colonoscopy2 06/11/13 removal of ganglion cyst Rt foot3 03/04/12 Cystoscopy 05/06/09 RT Carpal tunnel release 01/26/09 Hysterectomy 1991 Breast reduction 1984 Appendectomy 1977 LT Carpal tunnel release 1Biliary rgfrasihpx1t/biopsy tubulovillous adenoma no Crohn's repeat [id number] Borja Social History Social History Type Response Smoking Status Never smoker Assessment and Plan No data available for this section
--- OUTSIDE RECORDS SUMMARY | 2017-09-02 01:09 | External Medical Summary | Referral Summary ---
:1965 [facility] Address [address] [place] [address] [place] [address] Care Team Providers Name Role Phone Jim Issa Primary Care Physician Encounter VC Date(s): 01/31/15 - 01/31/15 [facility] [place] [phone] [place] Discharge Disposition: 01-Home or Self Care Attending Physician: Jim Issa MD Admitting Physician: Jim Issa MD Vital Signs Most recent to oldest [Reference Range]: 1 Blood Pressure [90-140/60-90 mmHg] 124/84 mmHg (01/31/15 11:03 AM) Problem List Condition Effective Dates Status [...] # 5 unknown unit, eRx: [facility] #[id number], INSTILL ONE DROP TO EACH EYE TWICE A DAY Start Date: 03/29/14 Status: OrderedLasix 40 mg oral tablet See Instructions, TAKE ONE TABLET BY MOUTH EVERY DAY, # 90 tabs, 1 Refill(s), eRx: [facility] #[id number], TAKE ONE TABLET BY MOUTH EVERY DAY Start Date: 03/29/15 Status: OrderedLipitor 10 mg oral tablet See Instructions, TAKE ONE TABLET BY MOUTH DAILY, # 90 tabs, eRx: [facility] #[id number], TAKE ONETABLET BY MOUTH DAILY Start Date: 07/25/15 Status: OrderedLotrel 10 mg-20 mg oral capsule 1 caps, Oral, Daily, PT. NEEDS TO SCHEDULE A CDM APPT. AND NEEDS LABS DONE., # 90 caps, 0 Refill(s),Pharmacy: [facility] #[id number] Start Date: 05/13/15 Status: Orderedmeloxicam 7.5 mg oral tablet See Instructions, TAKE ONE TABLET BY MOUTH DAILY, # 90 tabs, 5 Refill(s), eRx: [facility] #[id number], TAKE ONE TABLET BY MOUTH DAILY Start Date: 01/17/15 Status: OrderedPremarin 0.625 mg oral tablet See Instructions, TAKE ONE TABLET BY MOUTH DAILY, # 90 tabs, 1 Refill(s), eRx: [facility] #[id number], TAKE ONE TABLET BY MOUTH DAILY Start Date: 05/16/15 Status: OrderedProventil HFA 90 mcg/inh inhalation aerosol See Instructions, as needed for wheezing, 1 puffs Inhalation q4-6hr, # 1 Each, 2 Refill(s), Pharmacy: [facility] #[id number] Start Date: 07/09/14 Status: OrderedRhinocort Aqua 32 mcg/inh nasal spray 1 sprays, Nasal, Daily, # 8.6 g, 1 Refill(s), Pharmacy: [facility] #[id number] Start Date: 12/31/14 Status: OrderedTylenol PM See [...] 01/26/09 Hysterectomy 1991 Breast reduction 1984 Appendectomy 1978 LT Carpal tunnel release 1Biliary virnxkyyjv1e/biopsy tubulovillous adenoma no Crohn's repeat [id number] Borja Social History Social History Type Response Smoking Status Never smoker Assessment and Plan Extracted from: Title: Ambulatory Patient Education Author: Jim Issa MD Date: Allergy Allergies Allergies may happen from anything your body is sensitive to. This may be food , medicines, pollens, chemicals, and nearly anything around you in everyday life that produces allergens. An allergen is any thing that causes an allergy producing substance. Heredity is often a factor in causing these problems. This means you may have some of the same allergies as your parents. Food allergies happen in all age groups. Food allergies are some of the most severe and life threatening. Some common food allergies are cow's milk, seafood , eggs, nuts, wheat, and soybeans. SYMPTOMS Swelling around the mouth. An itchy red rash or hives. Vomiting or diarrhea. Difficulty breathing. SEVERE ALLERGIC REACTIONS ARE LIFE-THREATENING. This reaction is called anaphylaxis. It can cause the mouth and throat to swell and cause difficulty with breathing and swallowing. In severe reactions only a trace amount of food (for example, peanut oil in a salad) may cause within seconds. Seasonal allergies occur in all age groups. These are seasonal because they usually occur during the same season every year. They may be a reaction to molds , grass pollens, or tree pollens. Other causes of problems are house dust mite allergens, pet dander, and mold spores. The symptoms often consist of nasal congestion, a runny itchy nose associated with sneezing, and tearing itchy eyes. There is oft en an associated itching of the mouth and ears. The problems happen when you come in contact with pollens and other allergens. Allergens are the particles in the air that the body reacts to with an arnav rgic reaction. This causes you to release allergic antibodies. Through a chain of events, these eventually cause you to release histamine into the blood stream. Although it is meant to be protective to the body, it is this release that causes your discomfort. This is why you were given anti-histamines to feel better. If you are unable to pinpoint the offending allergen, it may be determined by skin or blood testing. Allergies cannot be cured but can be controlled with medicine. Hay fever is a collection of all or some of the seasonal allergy problems. It may often be treated with simple tbmj-xrd-rrqdovo medicine such as diphenhydramine. Take medicine as directed. Do not drink alcohol or drive while taking this medicine. Check with your caregiver or package insert for child dosages. If these medicines are not effective, there are many new medicines your caregiver can prescribe. Stronger medicine such as nasal spray, eye drops, and corticosteroids may be used if the first things you try do not work well. Other treatments such as immunotherapy or desensitizing injections can be used if all else fails. Follow up with your caregiver if problems continue. These seasonal allergies are usually not life threatening. They are generally more of a nuisance that can often be handled using medicine. HOME CARE INSTRUCTIONS If unsure what causes a reaction, keep a diary of foods eaten and symptoms that follow. Avoid foods that cause reactions. If hives or rash are present: Take medicine as directed. You may use an fkje-iro-lffisax antihistamine (diphenhydramine) for hives and itching as needed. Apply cold compresses (cloths) to the skin or take baths in cool water. Avoid hot baths or showers. Heat will make a rash and itching worse. If you are severely allergic: Following a treatment for a severe reaction, hospitalization is often required for closer follow-up. Wear a medic-alert bracelet or necklace stating the allergy. You and your family must learn how to give adrenaline or use an anaphylaxis kit. If you have had a severe reaction, always carry your anaphylaxis kit or EpiPen with you. Use this medicine as directed by your caregiver if a severe reaction is occurring. Failure to do so could have a fatal outcome. SEEK MEDICAL CARE IF: You suspect a food allergy. Symptoms generally happen within 30 minutes of eating a food. Your symptoms have not gone away within 2 days or are getting worse. You develop new symptoms. You want to retest yourself or your child with a food or drink you think causes an allergic reaction. Never do this if an anaphylactic reaction to that food or drink has happened before. Only do this under the care of a caregiver. SEEK IMMEDIATE MEDICAL CARE IF: You have difficulty breathing, are wheezing, or have a tight feeling in your chest or throat. You have a swollen mouth, or you have hives, swelling, or itching all over your body. You have had a severe reaction that has responded to your anaphylaxis kit or an EpiPen. These reactions may return when the medicine has worn off. These reactions should be considered life threatening. MAKE SURE YOU: Understand these instructions. Will watch your condition. Will get help right away if you are not doing well or get worse. Document Released: 09/17/2003 Document Revised: 10/19/2013 Document Reviewed: 02/21/2009 Exit[employer] Patient Information 2015 [employer] [facility]. This information is not intended to replace advice given to you by your health care provider. Make sure you discuss any questions you have with your health care provider. Sinusitis Sinusitis is redness, soreness, and swelling (inflammation) of the paranasal sinuses. Paranasal sinuses are air pockets within the bones of your face ( beneath the eyes, the middle of the forehead, or ab ove the eyes). In healthy paranasal sinuses, mucus is able to drain out, and air is able to circulate through them by way of your nose. However, when your paranasal sinuses are inflamed, mucus and air c an become trapped. This can allow bacteria and [...] not work properly or are not present. SYMPTOMS Symptoms of acute and chronic sinusitis are the same. The primary symptoms are pain and pressure around the affected sinuses. Other symptoms include: Upper toothache. Earache. Headache. Bad breath. Decreased sense of smell and taste. A cough, which worsens when you are lying flat. Fatigue. Fever. Thick drainage from your nose, which often is green and may contain pus ( purulent). Swelling and warmth over the affected sinuses. DIAGNOSIS Your caregiver will perform a physical exam. During the exam, your caregiver may: Look in your nose for signs of abnormal growths in your nostrils (nasal polyps). Tap over the affected sinus to check for signs of infection. View the inside of your sinuses (endoscopy) with a special imaging device with a light attached (endoscope), which is inserted into your sinuses. If your caregiver suspects that you have chronic sinusitis, one or more of the following tests may be recommended: Allergy tests. Nasal cultureA sample of mucus is taken from your nose and sent to a lab and screened for bacteria. Nasal cytologyA sample of mucus is taken from your nose and examined by your caregiver to determine if your sinusitis is related to an allergy. TREATMENT Most cases of acute sinusitis are related to a viral infection and will resolve on their own within 10 days. Sometimes medicines are prescribed to help relieve symptoms (pain medicine, decongestants, nasal steroid sprays, or saline sprays). However, for sinusitis related to a bacterial infection, your caregiver will prescribe antibiotic medicines. These are medicines that will help kill the bacteria causing the infection. Rarely, sinusitis is caused by a fungal infection. In theses cases, your caregiver will prescribe antifungal medicine. For some cases of chronic sinusitis, surgery is needed. Generally, these are cases in which sinusitis recurs more than 3 times per year, despite other treatments. HOME CARE INSTRUCTIONS Drink plenty of water. Water helps thin the mucus so your sinuses can drain more easily. Use a humidifier. Inhale steam 3 to 4 times a day (for example, sit in the bathroom with the shower running). Apply a warm, moist washcloth to your face 3 to 4 times a day, or as directed by your caregiver. Use saline nasal sprays to help moisten and clean your sinuses. Take gyzb-mbt-ologyjs or prescription medicines for pain, discomfort, or fever only as directed by your caregiver. SEEK IMMEDIATE MEDICAL CARE IF: You have increasing pain or severe headaches. You have nausea, vomiting, or drowsiness. You have swelling around your face. You have vision problems. You have a stiff neck. You have difficulty breathing. MAKE SURE YOU: Understand these instructions. Will watch your condition. Will get help right away if you are not doing well or get worse. Document Released: 06/24/2006 Document Revised: 09/15/2012 Document Reviewed: 07/08/2012 [employer] Patient Information 2015 [employer] [facility]. This information is not intended to replace advice given to you by your health care provider. Make sure you discuss any questions you have with your health care provider. No follow up information was provided. Extracted from: Title: Office Visit Note Author: Jim Issa MD Date: 01/31/15 Assessment/Plan Acute sinusitis Will start her on Levaquin 500mg daily and continue with the Mucinex. Ordered: Office Visit Level 3 Est 60396 Allergic rhinitis Continue with the nasal sprays. Ordered: Office Visit Level 3 Est 44930
[2017-09-02] MEDS ORDERED: IOHEXOL 300mg/ml 100ml INJECTION ONE (02:11)
[2017-09-02] MEDS ORDERED: SALINE FLUSH 10ml SYRINGE ONE (02:11)
[2017-09-02] MEDS ORDERED: KETOROLAC 30 MG/ML INJECTION IVP ONE (03:09)
[2017-09-02 04:36] VITALS: BMI 36.5
--- NOTE | 2017-09-02 05:00 | History & Physical Report ---
History of Present Illness Date: 09/02/17 Chief complaint: abdominal pain HPI: 51yo F with PMH of abdominal surgery and SBO presented to the emergency department with a chief complaint of generalized severe upper abdominal discomfort. Patient was at home when her symptoms began around 4 PM. She denies trauma, travel, poorly prepared food, or recent antibiotic use. She describes the pain as severe. Pain is sharp. No radiation. She does not note any exacerbating or remitting factors. Patient does note history of similar symptoms in the past with small bowel obstruction. She was at home when her symptoms began. Symptoms have been persistent in nature since onset. No other complaints or associated symptoms at this time. CT scan in ED showed a SBO. Patient admitted for supportive care. Patient refuses NGT placement at this time. Review of Systems All systems PM: 10-point ROS was reviewed, no additional remarkable complaints except Past Medical History Patient Stated Medical History Hypertension Yes Diabetes Mellitus Type 2 Yes Post Menopausal Yes Now No Clinic Medical History (Last Updated 06/11/17 @ 13:54 by Kenia Rick RN) History of basal cell carcinoma (BCC) (Resolved Medical) Nasal tip: 2005 Left ala: 2013 High cholesterol (Chronic Medical) Arthritis (Chronic Medical) History of kidney stones (Chronic Medical) Hypertension (Chronic Medical) Surgical History: Hysterectomy: Staged for endometriosis. Oopherectomy. C- Section: 1984, 1989. Colectomy for diverticulitis: 2004. Excision BCC nasal tip: 2005. Breast Reductioin: 1983. Mohs excision BCC with bilobed flap closure, left ala: 03/10/2014 Family History: Family History (Last Updated 06/11/17 @ 13:58 by Kenia Rick RN) Mother Drug abuse Cancer Heart disease Hypertension Stroke High cholesterol Glaucoma Sister Drug abuse Hypertension High cholesterol Maternal Grandmother High cholesterol Family History Updates: reviewed - Social History Smoking status: Never smoker Medications Home Medications Medication Instructions Recorded Confirmed Type Estrogens, Conjugated [Premarin] 0.625 mg PO DAILY #0 03/04/13 09/02/17 History Bystolic (nebivolol) 5 mg tablet 5 mg PO DAILY tab 06/11/17 09/02/17 History benazepril 5 mg tablet 20 mg PO DAILY tab 06/11/17 09/02/17 History canagliflozin 100 mg tablet 300 mg PO QAM 06/11/17 09/02/17 History Levofloxacin [Levaquin] 500 mg PO DAILY 09/02/17 09/02/17 History predniSONE [Prednisone] 20 mg PO DAILY 09/02/17 09/02/17 History Allergies Allergy/AdvReac Type Severity Reaction Status Date / Time latex Allergy Severe SWELLING Verified 06/11/17 13:49 hydrocodone Allergy Unknown ITCHING Verified 06/11/17 13:49 oxycodone AdvReac Intermediate VOMITS Verified 06/11/17 13:49 morphine AdvReac Unknown NAUSEA AND Verified 06/11/17 13:49 VOMITING Exam Vital Signs: Temperature 97.0 F 09/02/17 04:43 Pulse Rate 64 09/02/17 04:43 Respiratory Rate 16 09/02/17 04:43 Blood Pressure 150/74 H 09/02/17 04:43 Pulse Oximetry 97 09/02/17 04:43 Height/Weight/BMI: Height 1.55 m Weight 87.7 kg Body Mass Index 36.5 - Constitutional Present: well nourished, well developed - Routine Respiratory Exam Present: CTA bilaterally. Absent: wheezes - Routine Cardiovascular Exam Present: RRR. Absent: murmur - Routine Abdominal Exam Present: tenderness, distended, firm - Routine Extremities Exam Present: normal capillary refill - Routine Skin Exam Present: dry, warm - Routine Neurological Exam Present: alert, oriented X3, CN II-XII intact - Routine Psychiatric Exam Present: normal affect Results - Labs CBC & Chem 7: 09/02/17 00:32 09/02/17 00:32 Assessment and Plan (1) Small bowel obstruction Current visit: Yes Status: Acute Assessment and Plan: patient admitted, Gen surg consulted. Patient refuses NGT placement for decompression. Will order fentanyl for pain, patient to be NPO, serial abdominal films to monitor for resolution. DVT Prophylaxis: SCD's Resuscitation Status: Full Code - Physician Narrative Narrative: Date: 09/02/17 Time: 0457 Hospital Course Summary Disclaimer: The visit summary below is not to be considered part of the above Progress Note.
[2017-09-02] MEDS: FentaNYL 100 MCG/2 ML INJECTION IVP PRN ×2 (06:01→09:47)
--- NOTE | 2017-09-02 07:48 | CT Scan Report ---
Indication: ABD Pain, Hx SBO CT abdomen pelvis w con: Comparison: 08/21/2016 CT abdomen pelvis Technique: Patient is scanned from above the diaphragm to below the pubic symphysis after proximal a 100 cc Omni 300 intravenous contrast is used with dose reduction imaging technology and reformatted sagittal and coronal image planes. Findings: Heart size and lung bases are clear. Liver suggest diffuse fatty infiltration but no focal masses or biliary ductal dilatation noted. Gallbladder has been previously removed. Bleeding is unremarkable. Pancreas and both adrenals are unremarkable. Kidneys show no obstruction, masses or abnormal calcifications. Right kidney shows a couple of small benign-appearing cortical cyst measuring less than 1 cm. Retroperitoneum is unremarkable. Patient shows postoperative changes in the rectosigmoid region secondary to partial colectomy. Patient shows mild prominence of the distal small bowel with a potential transition zone in the pelvis. The finding however did not seem markedly changed over a prior study. No significant free air or free fluid is identified. Bladder contour is unremarkable. Patient's had previous hysterectomy. Reformatted imaging of the spine shows no acute bony abnormality. Impression: 1. Similar overall appearance to the prior study with postoperative changes some in the distal bowel without acute new findings. Patient had shown some slightly prominent loops of small bowel on the old study with a similar caliber and appearance on today's exam. 2. No acute upper abdominal findings identified. 3. Findings communicated to ordering clinician by the V rad service on a callback basis. .
[2017-09-02] MEDS ORDERED: FentaNYL 250 MCG/5 ML INJECTION IVP PRN (09:45)
[2017-09-02] MEDS: POTASSIUM CHLORIDE INJ 20 MEQ in D5NS 1,000 ML IV SCH ×2 (10:56→22:12)
[2017-09-02] MEDS: KETOROLAC 15 MG/ML INJECTION IVP PRN ×3 (11:19→23:15)
--- NOTE | 2017-09-02 15:27 | General Surgery Consult Note ---
Consult date: 09/02/17 Attending Physician: Faviola Loera MD Reason for consult: other (SBO) [facility] Medical History (Last Updated 09/02/17 @ 15:35 by Orlando Davis MD) BMI 36.0-36.9,adult (Chronic) History of basal cell carcinoma (BCC) (Resolved) Nasal tip: 2005 Left ala: 2013 High cholesterol (Chronic) Arthritis (Chronic) History of kidney stones (Chronic) Hypertension (Chronic) Surgical History: 1. Removal of cyst from the right ovary and incidental appendectomy - 1976. 2. Breast reduction - 1983. 3. Tonsillectomy - 1985. 4. x 2. 5. Abdominal hysterectomy and unilateral oophorectomy - 1990. 6. Oophorectomy of contralateral ovary - 1990. 7. Left carpal tunnel release - 01/16/2008. 8. Right carpal tunnel release - 12/27/2008. 9. Exploratory laparotomy with sigmoid resection due to recurrent diverticulitis - 05/2006 for recurrent. diverticulitis. 10. Cystoscopy - 05/06/2009. 11. Plantar fasciotomy - 08/25/2010. 12. Sinus surgery - 04/2013. 13. Excision of basal cell carcinoma from the nose - 2010. 14. Colonoscopy with biopsies of the terminal ileum and polypectomy x 2 of the cecal region - 06/08/2013. by Dr. Mendoza. Pathology revealed a tubulovillous adenoma at the cecum. 15. Cystoscopy with basket retrieval of stone and placement of ureteral stent - 03/2013. 16. Mohs excision of basal cell carcinoma of the left ala with bilobed flap closure, excision of left. upper lip lesion x 2 with complex closure - 03/10/[address] Linda Mcdonald. 17. Laparoscopic cholecystectomy for biliary dyskinesia - 07/22/[address] Mendoza. Family History: Family History (Last Updated 09/02/17 @ 15:37 by Orlando Davis MD) Mother Drug abuse High cholesterol Heart disease Cancer Glaucoma Hypertension Stroke Sister Drug abuse High cholesterol Hypertension Maternal Grandmother High cholesterol Father COPD (chronic obstructive pulmonary disease) - Social History Smoking status: Never smoker Substance use type: does not use Alcohol intake: never Household members: spouse Current occupation: [employer] Social history: ~33 years PCP: Dr. Chamberlain Medications Home Medications Medication Instructions Recorded Confirmed Type Estrogens, Conjugated [Premarin] 0.625 mg PO DAILY #0 03/04/13 09/02/17 History Bystolic (nebivolol) 5 mg tablet 5 mg PO DAILY tab 06/11/17 09/02/17 History benazepril 5 mg tablet 20 mg PO DAILY tab 06/11/17 09/02/17 History canagliflozin 100 mg tablet 300 mg PO QAM 06/11/17 09/02/17 History Levofloxacin [Levaquin] 500 mg PO DAILY 09/02/17 09/02/17 History predniSONE [Prednisone] 20 mg PO DAILY 09/02/17 09/02/17 History Allergies Allergy/AdvReac Type Severity Reaction Status Date / Time latex Allergy Severe SWELLING Verified 06/11/17 13:49 hydrocodone Allergy Unknown ITCHING Verified 06/11/17 13:49 oxycodone AdvReac Intermediate VOMITS Verified 06/11/17 13:49 morphine AdvReac Unknown NAUSEA AND Verified 06/11/17 13:49 VOMITING Review of Systems 10-point ROS: negative except for HPI and the following: - Gastrointestinal Gastrointestinal: Absent: nausea, vomiting - Musculoskeletal Musculoskeletal: Present: joint pain (from arthritis) - Vital Signs Last Vital Signs Temp 97.3 F 09/02/17 07:04 Pulse 54 L 09/02/17 07:04 Resp 16 09/02/17 07:04 BP 133/67 09/02/17 07:04 Pulse Ox 97 09/02/17 07:04 - Laboratory Result Diagrams: 09/02/17 00:32 09/02/17 00:32 Hospital Course Summary Disclaimer: The visit summary below is not to be considered part of the above Progress Note.
--- NOTE | 2017-09-02 16:17 | Consultation ---
DATE OF CONSULTATION 09/02/2017 CONSULTING PHYSICIAN Orlando Davis MD REQUESTING PHYSICIAN Dr. Loera REASON FOR CONSULTATION Small bowel obstruction. IMPRESSION 1. Partial small bowel obstruction likely secondary to adhesions from multiple prior abdominal surgeries. The patient has had multiple prior small bowel obstructions that have all resolved with conservative management. She has had a bowel obstruction in both August 2015 and August 2016. 2. Obesity with BMI of 36.4. RECOMMENDATIONS 1. Since Lashell has had success with conservative management of prior small bowel obstructions, I do think that she should be allowed to attempt conservative management. 2. The patient refused NG tube insertion. 3. I will follow along with you with regards to her obstruction. HISTORY OF PRESENT ILLNESS Lashell is a 51-year-old female whom I have seen in August for the last two years while covering for Dr. Mendoza when he was unavailable. She has had a bowel obstruction each year that resolved with conservative management. Her latest episode started again yesterday at 4:00 p.m. It started initially as crampy abdominal pain. The patient waited until she couldn't stand the pain anymore and she came to the hospital. Her pain was up to 10/10 in severity again. She noticed no significant relief from Fentanyl but did notice relief with Toradol given in the emergency department. She last had a bowel movement yesterday and her bowels have been loose lately. She has recently been on a diet and says that she has been eating lots of vegetables, fruits, salad, chicken, and eggs. She has had more loose stools from her recent diet. Her stools have been more normal lately since Dr. Chamberlain changed her antihypertensive medication from her prior medication that was managed by Dr. Issa. She says that her bowel movements have been more regular lately. PAST MEDICAL HISTORY, PAST SURGICAL HISTORY, ALLERGIES, MEDICATIONS, FAMILY HISTORY, SOCIAL HISTORY, REVIEW OF SYSTEMS, VITAL SIGNS, LABORATORY DATA See electronic consultation note. PHYSICAL EXAMINATION GENERAL: The patient is awake and alert, in no acute distress. HEENT: Sclerae clear. Extraocular muscles intact. NECK: Supple with a midline trachea. No lymphadenopathy or thyromegaly are noted. HEART: Regular rate and rhythm. LUNGS: Clear to auscultation bilaterally. ABDOMEN: Soft, somewhat tender in the upper abdomen more than the lower abdomen. There is no guarding or rebound noted. No masses are noted. EXTREMITIES: No clubbing, cyanosis or edema. NEURO: Cranial nerves II-XII are grossly intact. PSYCHIATRIC: Normal mood and affect. IMAGING CT scan of the abdomen and pelvis from today was personally reviewed. There are some dilated loops in the left abdomen and some distention of the stomach along with other areas of decompressed small bowel. MTDD
[2017-09-02] MEDS: LEVOFLOXACIN PB 500 MG/100 ML BAG IV SCH (18:49)
[2017-09-02] MEDS: FentaNYL 250 MCG/5 ML INJECTION IVP PRN ×2 (20:14→22:11)
[2017-09-02] MEDS: ONDANSETRON 4 MG/2 ML INJECTION IVP PRN (21:53)
[2017-09-03] MEDS: FentaNYL 250 MCG/5 ML INJECTION IVP PRN (03:44)
[2017-09-03] MEDS: ONDANSETRON 4 MG/2 ML INJECTION IVP PRN ×3 (03:53→15:54)
[2017-09-03] MEDS: KETOROLAC 15 MG/ML INJECTION IVP PRN (05:15)
[2017-09-03] MEDS: SALINE FLUSH 10ml SYRINGE IVF PRN (05:16)
[2017-09-03] MEDS ORDERED: METOCLOPRAMIDE 10mg/2ml INJECTION IVP PRN (05:25)
[2017-09-03] MEDS: POTASSIUM CHLORIDE INJ 20 MEQ in D5NS 1,000 ML IV SCH ×3 (08:34→20:18)
--- NOTE | 2017-09-03 08:47 | XRay Report ---
Indication: partial SBO PROCEDURE: PA view of the chest with supine and upright AP views of the abdomen Encounter: Initial Comparison: CT abdomen dated September 02, 2017 FINDINGS: The lungs are clear. There is no abnormal airspace opacity, pleural effusion or pneumothorax identified. The heart size, pulmonary vasculature and mediastinum are within normal limits. No free air. Dilated small bowel loops centrally within the abdomen measuring just over 3 cm in diameter. There is scattered colonic gas present to the level of the rectum. Surgical anastomosis seen in the pelvis. Moderate stool in the right colon. Air-fluid levels noted on the upright view. IMPRESSION: 1. No acute cardiopulmonary abnormality. 2. Continued findings of a distal small bowel partial obstruction. .
[2017-09-03] MEDS: KETOROLAC 30 MG/ML INJECTION IVP PRN ×3 (10:06→22:10)
[2017-09-03] MEDS: BISACODYL 10 MG SUPPOSITORY RECTALLY PRN (12:50)
[2017-09-03] MEDS: METOCLOPRAMIDE 10mg/2ml INJECTION IVP PRN ×2 (12:54→19:06)
--- NOTE | 2017-09-03 16:27 | Progress Note ---
DATE OF VISIT 09/03/2017 REASON FOR VISIT Follow bowel obstruction. CARSON Lobo had a rough evening last night and morning due to poor pain control and nausea. This morning her nurse had contacted me and we increased her Toradol and Reglan doses as well as adding p.r.n. Phenergan. She feels like symptoms are much better controlled and she has been able to sleep some lately. OBJECTIVE VITAL SIGNS: Temperature 99.5, pulse 76, blood pressure 145/75, respiratory rate 16, oxygen saturation 96% on room air. GENERAL: The patient is awake and alert, in no acute distress. ABDOMEN: Soft, mildly distended. She has tenderness diffusely but no guarding is noted. She does seem somewhat more tender than yesterday's exam. LABORATORY DATA White blood cell count 13.6. IMAGING Acute abdominal series from today was personally reviewed as well as reviewed the report. There were ongoing dilated small bowel loops in the left abdomen. IMPRESSION 1. Partial small bowel obstruction - likely secondary to adhesions from multiple prior abdominal surgeries. She continues to have symptoms and has not shown significant bowel function since arrival to the hospital. 2. Obesity with BMI of 37. PLAN 1. The patient's Toradol dose was increased to 30 mg per dose. I also increased her Reglan to 10 mg per dose. I added Phenergan IV on an as-needed basis. 2. Continue conservative management of her bowel obstruction. We will see how her symptoms progress over the next 24-48 hours. 3. I did remind her that NG tube may decompress some of the proximal bowel and lead to less nausea or vomiting. 4. I also ordered a Dulcolax suppository on an as-needed basis to see if this would stimulate some bowel function from below. MTDD
[2017-09-03] MEDS: LEVOFLOXACIN PB 500 MG/100 ML BAG IV SCH (17:16)
--- NOTE | 2017-09-03 19:04 | Progress Note ---
- Date 09/03/17 Subjective: c/o abdominal pain and nausea. Says pain is worse that previous SBO's. Refusing NG. Objective Vital signs: Temperature 98.7 F 09/03/17 15:39 Pulse Rate 77 09/03/17 15:39 Respiratory Rate 16 09/03/17 15:39 Blood Pressure 147/77 H 09/03/17 15:39 Pulse Oximetry 96 09/03/17 15:39 Height/Weight/BMI: Height 5 ft 1 in Weight 88.8 kg Body Mass Index 36.5 - Constitutional Present: mild distress - Routine HEENT Exam Head: Present: normocephalic, atraumatic Eye: Present: EOMI, PERRL - Routine Respiratory Exam Present: CTA bilaterally - Routine Cardiovascular Exam Present: RRR, S1, S2 - Routine Abdominal Exam Present: tenderness. Absent: rebound, guarding - Routine Neurological Exam Present: alert, oriented X3 Results - Labs CBC & Chem 7: 09/03/17 02:39 09/03/17 02:39 Assessment and Plan (1) Small bowel obstruction Current visit: Yes Status: Deleted Assessment and Plan: Impression Abdominal pain Partial versus early SBO hx extensive abdominal surgeries Recent sinusitis Leukocytosis Dehydration Diabetes mellitus History nephrolithiasis Plan Patient admitted for management of partial SBO. KUB c/w distal partial SBO. Toradol increased. Phenergan added to anti-emetics. Suppository given. Repeat KUB in the morning. Dr. Davis consulted and absence of Dr. Mendoza. Monitor renal function on toradol. Encourage activity. Levaquin IV continued for sinusitis. BP OK with oral meds held. Blood sugars OK. - Physician Narrative Narrative: Date: 09/03/17 Time: 1854 Hospital Course Summary Disclaimer: The visit summary below is not to be considered part of the above Progress Note. Hospital Course: 09/03 Patient admitted for management of partial SBO. KUB c/w distal partial SBO. Toradol increased. Phenergan added to anti-emetics. Suppository given. Repeat KUB in the morning. Dr. Davis consulted and absence of Dr. Mendoza. Monitor renal function on toradol. Encourage activity. Levaquin IV continued for sinusitis. BP OK with oral meds held. Blood sugars OK.
[2017-09-04] MEDS: SALINE FLUSH 10ml SYRINGE IVF PRN ×2 (04:48→10:10)
[2017-09-04] MEDS: ONDANSETRON 4 MG/2 ML INJECTION IVP PRN ×2 (04:48→20:00)
[2017-09-04] MEDS: KETOROLAC 30 MG/ML INJECTION IVP PRN ×4 (04:49→22:59)
[2017-09-04] MEDS: POTASSIUM CHLORIDE INJ 20 MEQ in D5NS 1,000 ML IV SCH ×2 (06:44→16:58)
--- NOTE | 2017-09-04 08:36 | XRay Report ---
Indication: SBO PROCEDURE: XR abdomen 1V: Encounter: Initial Comparison: Acute abdomen series dated September 03, 2017 Findings: Lung bases are clear. No free air. Dilated small bowel loop remains in the central abdomen measuring 1.5 cm in diameter with scattered colonic gas. The degree of bowel distention is minimally improved. Impression: Slight improvement in the partial small bowel obstruction. .
[2017-09-04] MEDS: BISACODYL 10 MG SUPPOSITORY RECTALLY PRN (09:59)
[2017-09-04] MEDS: METOCLOPRAMIDE 10mg/2ml INJECTION IVP PRN ×2 (14:40→23:05)
--- NOTE | 2017-09-04 15:42 | Progress Note ---
- Date 09/04/17 Subjective: Patient says she was feeling a little better, but after walking she has had an increase in abdominal pain. No results from suppositories. She has had flatus a couple of times yesterday. Objective Vital signs: Temperature 98.1 F 09/04/17 14:43 Pulse Rate 67 09/04/17 14:43 Respiratory Rate 18 09/04/17 14:43 Blood Pressure 139/74 09/04/17 14:43 Pulse Oximetry 96 09/04/17 14:43 Height/Weight/BMI: Height 5 ft 1 in Weight 89.3 kg Body Mass Index 36.5 - Constitutional Present: no acute distress - Routine HEENT Exam Head: Present: normocephalic, atraumatic Eye: Present: EOMI, PERRL - Routine Respiratory Exam Present: CTA bilaterally - Routine Cardiovascular Exam Present: RRR, S1, S2 - Routine Abdominal Exam Present: tenderness. Absent: normoactive bowel sounds, rebound, guarding - Routine Extremities Exam Present: no edema - Routine Neurological Exam Present: alert, oriented X3 Results - Labs CBC & Chem 7: 09/04/17 04:03 09/04/17 04:03 Assessment and Plan (1) Small bowel obstruction Current visit: Yes Status: Deleted Assessment and Plan: Impression Abdominal pain Partial versus early SBO hx extensive abdominal surgeries Recent sinusitis Leukocytosis Dehydration Diabetes mellitus History nephrolithiasis Plan Continue conservative treatment. Monitor renal function on Toradol. Continue IVF. KUB shows some improvement. Follow. Encourage activity. Continue supportive care. Dr. Davis consulted and absence of Dr. Mendoza. Levaquin IV continued for sinusitis. BP fair with oral meds held. Blood sugars OK. - Physician Narrative Narrative: Date: 09/04/17 Time: 1539 Hospital Course Summary Disclaimer: The visit summary below is not to be considered part of the above Progress Note. Hospital Course: 09/03 Patient admitted for management of partial SBO. KUB c/w distal partial SBO. Toradol increased. Phenergan added to anti-emetics. Suppository given. Repeat KUB in the morning. Dr. Davis consulted and absence of Dr. Mendoza. Monitor renal function on toradol. Encourage activity. Levaquin IV continued for sinusitis. BP OK with oral meds held. Blood sugars OK.
[2017-09-04] MEDS: LEVOFLOXACIN PB 500 MG/100 ML BAG IV SCH (16:57)
--- NOTE | 2017-09-04 18:29 | Progress Note ---
DATE OF VISIT 09/04/2017 REASON FOR VISIT Follow bowel obstruction. SUBJECTIVE Lashell continues to have some trouble with pain control. She still feels like the Fentanyl does not help with the pain and so she has been using only Toradol. She denies any nausea. She did receive a Dulcolax suppository earlier and recently passed the suppository. Along with the suppository she passed some flatus but has not had any bowel movement. OBJECTIVE VITAL SIGNS: Afebrile with stable vitals on room air. GENERAL: The patient is awake and alert. She is in no acute distress. ABDOMEN: Soft, minimally distended, diffusely tender but most prominent in the left upper quadrant. There is no guarding or rebound noted. LABORATORY DATA White blood cell count has decreased to 12.6. IMAGING KUB report was reviewed. It showed slight improvement in the partial small bowel obstruction with dilated small bowel loops measuring up to 1.5 cm in diameter. There was scattered colonic gas. IMPRESSION 1. Partial small bowel obstruction - likely secondary to adhesions from multiple prior abdominal surgeries. She continues to have some pain but has passed some flatus. She still has not had bowel function. 2. Obesity with BMI of 37. PLAN 1. Continue observation today. 2. I discussed that if she is not having obvious bowel function tomorrow, then she may need a Gastrografin small bowel follow-through to further assess her bowel obstruction. 3. She is still not interested in surgical management currently. I think it is reasonable to wait until tomorrow to decide more on the need of surgery or not since her prior bowel obstructions have responded to conservative management. JITENDRA
[2017-09-05] MEDS: POTASSIUM CHLORIDE INJ 20 MEQ in D5NS 1,000 ML IV SCH ×3 (02:23→14:49)
[2017-09-05] MEDS: KETOROLAC 30 MG/ML INJECTION IVP PRN ×2 (05:10→11:10)
[2017-09-05] MEDS: ONDANSETRON 4 MG/2 ML INJECTION IVP PRN ×2 (05:11→13:39)
--- NOTE | 2017-09-05 09:13 | XRay Report ---
Indication: sbo PROCEDURE: XR abdomen 1V: Encounter: Initial Comparison: September 04, 2017 Findings: Persistently dilated gas-filled small bowel in the central abdomen measuring up to 4.2 cm in diameter. There is scattered colonic gas present. No gross free air on these supine views. Impression: No significant change in the obstructive bowel gas pattern. .
[2017-09-05] MEDS ORDERED: DIATRIZOATE MEGLUMINE/SOD. (66%/10%) 120ml SOLN ONE (09:19)
[2017-09-05] MEDS: METOCLOPRAMIDE 10mg/2ml INJECTION IVP PRN (11:24)
--- NOTE | 2017-09-05 15:12 | Progress Note ---
- Date 09/05/17 Subjective: F/U: Small bowel obstruction. Lashell is seen while resting in bed with her sister at the bedside. She reports that she is feeling much better now and states that she vomited a large amount this morning relieving her abdominal fullness and discomfort. She states that she drank the Gastrografin this morning but has not had any results yet. She denies any other complaints or concerns. No chest pain, shortness of breath, abdominal pain, nausea, vomiting or dysuria. She has been ambulating around her room frequently and urinary output is stable. She does express some frustration that her care from day to day does not seem to be consistent particularly referencing when she receives Dulcolax suppositories. Review of medications indicates that the suppositories were previously PRN and have been changed to scheduled dosing. KUB this AM revealed no significant change in the obstructive bowel gas pattern. Labs are stable. Objective Vital signs: Temperature 98.0 F 09/05/17 07:00 Pulse Rate 83 09/05/17 07:00 Respiratory Rate 16 09/05/17 07:00 Blood Pressure 156/86 H 09/05/17 07:00 Pulse Oximetry 95 09/05/17 07:00 Height/Weight/BMI: Height 5 ft 1 in Weight 195 lb 8.8 oz Body Mass Index 36.5 Comments: resting in bed with her sister at the bedside. - Constitutional Present: no acute distress, well nourished, well developed, morbidly obese, cooperative - Routine HEENT Exam Head: Present: normocephalic, atraumatic Eye: Present: PERRL. Absent: conjunctival icterus ENT: Present: mucous membranes dry, oropharynx clear - Routine Respiratory Exam Present: CTA bilaterally. Absent: rales, respiratory distress, rhonchi, stridor , wheezes, crackles - Routine Cardiovascular Exam Present: RRR, S1, S2 - Routine Abdominal Exam Present: soft, tenderness (mild, generalized, specifically over splenic flexure. ), distended. Absent: guarding, firm Comments: tinkering, hypoactive bowel sounds. - Routine Extremities Exam Present: no edema, non tender, full ROM, pulses intact - Routine Back/Spine/Pelvis Exam Back/Spine: Present: full ROM. Absent: vertebral tenderness - Routine Musculoskeletal Exam Musculoskeletal: Present: moving extremities well - Routine Skin Exam Present: dry, warm. Absent: jaundice Comments: afebrile. - Routine Neurological Exam Present: alert, oriented X3, CN II-XII intact, moving all extremities, hearing grossly intact, normal speech. Absent: facial asymmetry - Routine Lymphatic Exam Lymphatic: Absent: lymphedema - Routine Psychiatric Exam Present: normal affect, cooperative, good insight, good judgment Results - Labs CBC & Chem 7: 09/05/17 04:26 09/05/17 04:26 - Imaging and Cardiology Abdominal x-ray Status: image reviewed by me Additional comments: Date of Exam: 09/05/17 Type of Exam(s): XR abdomen 1V Reason for Exam(s): sbo Comparison: September 04, 2017 Findings: Persistently dilated gas-filled small bowel in the central abdomen measuring up to 4.2 cm in diameter. There is scattered colonic gas present. No gross free air on these supine views. Impression: No significant change in the obstructive bowel gas pattern. Assessment and Plan (1) Small bowel obstruction Current visit: Yes Status: Deleted Assessment and Plan: Impression Abdominal pain Partial versus early SBO Hx extensive abdominal surgeries Recent sinusitis Leukocytosis Dehydration Diabetes mellitus History nephrolithiasis Plan - 09/05/17 No significant change. Gastrograftin given this AM without results. KUB revealed no significant change. Patient resistant to surgical option as she has had multiple surgeries which she believes resulted in the scar tissue causing her repetitive SBO. Continue with conservative treatment. Dulcolax suppositories now scheduled Q6H. Pain fairly well controlled. Continue toradol for pain control. Renal function stable. Maintain NPO diet. Continue D5NS with KCl for hydration. Continue supportive cares and encourage activity and walking. Continue Levaquin IV for sinusitis - initiated 09/02/17 x 5 days. Blood pressure fairly well controlled. Continue to hold oral medications. Continue to monitor daily labs. DVT Prophylaxis: SCD's Resuscitation Status: Full Code - Time spent with patient Time with patient PN: 25 minutes - Physician Narrative Physician: Sai Drake MD Narrative: Date: 09/05/17 Time: 1849 I have independently evaluated and examined this patient. I reviewed the chart, the patient's history, and the NANOSYSTEMS ENGINEER/PA's documented findings as above. We discussed and formulated the assessment and plan as above with additions as below: Patient sitting on side of bed after UGI/SBFT. c/o fullness, nausea and increased pain. Having flatus but no stool. Requested suppositories be scheduled. Patient getting frustrated and wants something done to help. Continues to refuse NGT. NAD. CTAB. RRR. abdominal tenderness, no guarding/rebound, bowel sounds hypoactive. No edema. Schedule suppositories q6. SBFT shows delay. Antiemetics as needed. Continue Toradol. Patient hoping to stay away from narcotics and the potential to exacerbate her bowel issues. Hospital Course Summary Disclaimer: The visit summary below is not to be considered part of the above Progress Note. Hospital Course: 09/03 Patient admitted for management of partial SBO. KUB c/w distal partial SBO. Toradol increased. Phenergan added to anti-emetics. Suppository given. Repeat KUB in the morning. Dr. Davis consulted and absence of Dr. Mendoza. Monitor renal function on toradol. Encourage activity. Levaquin IV continued for sinusitis. BP OK with oral meds held. Blood sugars OK. Plan - 09/05/17 No significant change. Gastrograftin given this AM without results. KUB revealed no significant change. Patient resistant to surgical option as she has had multiple surgeries which she believes resulted in the scar tissue causing her repetitive SBO. Continue with conservative treatment. Dulcolax suppositories now scheduled Q6H. Pain fairly well controlled. Continue toradol for pain control. Renal function stable. Maintain NPO diet. Continue D5NS with KCl for hydration. Continue supportive cares and encourage activity and walking. Continue Levaquin IV for sinusitis - initiated 09/02/17 x 5 days. Blood pressure fairly well controlled. Continue to hold oral medications. Continue to monitor daily labs.
[2017-09-05] MEDS: BISACODYL 10 MG SUPPOSITORY RECTALLY SCH (16:26)
[2017-09-05] MEDS: PROMETHAZINE 25 MG INJECTION IVP PRN (16:26)
[2017-09-05] MEDS: LEVOFLOXACIN PB 500 MG/100 ML BAG IV SCH (18:10)
--- NOTE | 2017-09-05 18:29 | XRay Report ---
Indication: Evaluate SBO PROCEDURE: XR small bowel follow through: Encounter: Initial Comparison: Abdominal x-ray from earlier today Findings: Water-soluble contrast was administered orally followed by serial abdominal radiographs. Contrast predominantly stays within the stomach for multiple hours with slow progression through moderately to severely dilated proximal small bowel. Contrast becomes dilute and difficult to precisely visualize. There is progression to the mid to distal portion of the small bowel by 6 hours. At the eight hour image there may be a small amount contrast within the right colon. Impression: Delayed intestinal transit time of greater than six hours. There may be some colonic contrast present at the eight hour favio. Continued radiographic follow-up is recommended. .
[2017-09-05] MEDS ORDERED: MIDAZOLAM 2mg/2ml INJECTION ONE (19:22)
[2017-09-05] MEDS ORDERED: FentaNYL 250 MCG/5 ML INJECTION ONE ×2 (19:22→22:18)
[2017-09-05] MEDS ORDERED: ROCURONIUM 50 MG/5 ML INJECTION IVP ONE ×2 (19:24→21:07)
[2017-09-05] MEDS ORDERED: SUCCINYLCHOLINE 20mg/mL 10mL INJECTION ONE (19:24)
[2017-09-05] MEDS ORDERED: PROPOFOL 20 ML ONE (19:24)
[2017-09-05] MEDS: LR 1,000 ML IV SCH ×3 (19:35→22:25)
[2017-09-05] MEDS ORDERED: MetroNIDAZOLE PB 250 MG/50 ML BAG IV SCH (20:08)
--- NOTE | 2017-09-05 20:45 | Anesthesia Preoperative Report ---
Anesthesia Preoperative Record - Date and Time Date: 09/05/17 Preoperative Diagnosis: SBO Proposed Procedure: exploratory laparotomy NPO Since Date: 09/04/17 NPO Since Time: 23:00 Allergies/Adverse Reactions: Allergies Allergy/AdvReac Type Severity Reaction Status Date / Time latex Allergy Severe SWELLING Verified 06/11/17 13:49 hydrocodone Allergy Unknown ITCHING Verified 06/11/17 13:49 oxycodone AdvReac Intermediate VOMITS Verified 06/11/17 13:49 morphine AdvReac Unknown NAUSEA AND Verified 06/11/17 13:49 VOMITING - Vital Signs Vital Signs: Temperature 99.4 F 09/05/17 16:25 Pulse Rate 76 09/05/17 16:25 Respiratory Rate 16 09/05/17 16:25 Blood Pressure 150/78 H 09/05/17 16:25 Pulse Oximetry 97 09/05/17 16:25 Height and Weight: Height 5 ft 1 in Weight 88.7 kg Body Mass Index 36.5 - Medications Inpatient Medications: Current Medications Bisacodyl (Dulcolax) 10 mg RECTALLY DAILY PRN PRN Reason: Constipation Last Admin: 09/04/17 09:59 Dose: 10 mg Bisacodyl (Dulcolax) 10 mg RECTALLY Q6H [facility] Last Admin: 09/05/17 16:26 Dose: 10 mg Fentanyl (Sublimaze) 50 mcg IVP Q2HR PRN Last Admin: 09/02/17 22:11 Dose: 50 mcg Potassium Chloride 20 meq/ (Dextrose/Sodium Chloride) 1,010 mls @ 100 mls/hr IV .Q10H6M [facility] Last Infusion: 09/05/17 19:25 Dose: Infused Levofloxacin/Dextrose (Levaquin Premix) 500 mg in 100 mls @ 100 mls/hr IV Q24H [facility] Stop: 09/07/17 17:14 Last Infusion: 09/05/17 19:10 Dose: Infused Lactated Ringer's (Lactated Ringers) 1,000 mls @ 50 mls/hr IV .Q20H [facility] Last Admin: 09/05/17 20:32 Dose: 50 mls/hr Metronidazole/Sodium Chloride (Flagyl Iv Premix) 250 mg in 50 mls @ 100 mls/hr IV ONE TIME [facility] Ketorolac Tromethamine (Toradol Inj) 30 mg IVP Q6H PRN PRN Reason: Pain Stop: 09/08/17 09:55 Last Admin: 09/05/17 11:10 Dose: 30 mg Lorazepam (Ativan Inj) 0.5 mg IVP Q6H PRN Last Admin: 09/05/17 08:54 Dose: 0.5 mg Metoclopramide HCl (Reglan) 10 mg IVP Q6H PRN Last Admin: 09/05/17 11:24 Dose: 10 mg Ondansetron HCl (Zofran) 4 mg IVP Q6H PRN PRN Reason: Nausea &/or vomiting Last Admin: 09/05/17 13:39 Dose: 4 mg Promethazine HCl (Phenergan Inj) 25 mg IVP Q6H PRN PRN Reason: Nausea &/or vomiting Last Admin: 09/05/17 16:26 Dose: 25 mg Sodium Chloride (Iv Flush) 10 - 80 ml IVF PRN PRN PRN Reason: Flushing Last Admin: 09/04/17 10:10 Dose: 10 ml Home Medications: Home Medications Medication Instructions Recorded Confirmed Type Estrogens, Conjugated [Premarin] 0.625 mg PO DAILY #0 03/04/13 09/02/17 History Bystolic (nebivolol) 5 mg tablet 5 mg PO DAILY tab 06/11/17 09/02/17 History benazepril 5 mg tablet 20 mg PO DAILY tab 06/11/17 09/02/17 History canagliflozin 100 mg tablet 300 mg PO QAM 06/11/17 09/02/17 History Levofloxacin [Levaquin] 500 mg PO DAILY 09/02/17 09/02/17 History predniSONE [Prednisone] 20 mg PO DAILY 09/02/17 09/02/17 History Is Patient on Beta Yoanna?: Yes - Medical History Cardiovascular: Reports: Hypertension, High Cholesterol Gastrointestional: Reports: Nausea or Vomiting Present (abdominal distention) DENIES: Gastroesophageal Reflux Disease Renal/Endocrine: Reports: Diabetes Mellitus Type 2 Other History: DENIES: Now - Surgical History Reproductive Surgery/Treatment: Reports: Hysterectomy DENIES: Tubal Ligation Anesthesia Reactions: None Hx Family Anesthesia Reaction: No History of Motion Sickness: No - Social History Smoking Status: Never smoker Hx Chewing Tobacco Use: No Second Hand Exposure: No Substance Use Type: does not use Alcohol Intake: never Alcohol Intake Frequency: does not drink - Pertinent Findings Laboratory: CBC and BMP 09/05/17 04:26 09/05/17 04:26 BMP 09/05/17 04:26 Sodium 140 Potassium 4.1 Chloride 105 Carbon Dioxide 26 BUN 4.0 L Creatinine 0.6 L Glucose 112 H Calcium 8.7 - Physical Exam Respiratory Exam: Present: lungs clear, bilateral breath sounds equal Cardiovascular Exam: Present: regular rate and rhythm - Airway Assessment Mallampati Score: IV TMD: 3 Fingerbreadths Neck Extension: fair Overall Assessment: may be difficult mask vent, may be difficult intubation, other (full stomach precautions) - ASA ASA Score: 3 - Plan Anesthesia: General Inhalation Gases - Discussion Discussion: Discussed risks/options/alternatives of anesthesia and questions answered. Patient consents. Nursing pain assessment noted. Present for Discussion: spouse Attestation Statement: Prior to the delivery of any anesthetic medication, I examined the patient, developed the plan, obtained the patient's consent and discussed the risk and benefits of the procedure with the patient/guardian. - Additional Information Seen by Anesthesia: Yes
[2017-09-05] MEDS ORDERED: DiphenhydrAMINE 50 MG/ML INJECTION ONE (22:51)
[2017-09-05] MEDS ORDERED: DEXAMETHASONE 4 MG/ML INJECTION ONE (22:51)
[2017-09-05] MEDS ORDERED: ONDANSETRON 4 MG/2 ML INJECTION ONE (22:51)
[2017-09-06] MEDS ORDERED: SUGAMMADEX 200mg/2ml INJECTION IVP ONE (00:33)
--- NOTE | 2017-09-06 01:08 | General Surgery Procedure Note ---
Date of Procedure: 09/06/17 Surgeon: Susan Anesthesia: General Inhalation Gases ASA Score: 3 Postoperative Diagnosis: Extensive adhesions, high grade SBO secondary to adhesions, expected serosal tears in small bowel incidental to adhesiolysis Procedure: Exploratory laparotomy, segmental small bowel resection Estimated Blood Loss: 450 ml
[2017-09-06] MEDS ORDERED: ACETAMINOPHEN 500 MG TABLET PO PRN (01:30)
[2017-09-06] MEDS: POTASSIUM CHLORIDE INJ 20 MEQ in D5NS 1,000 ML IV SCH ×3 (02:15→20:03)
[2017-09-06] MEDS: BISACODYL 10 MG SUPPOSITORY RECTALLY SCH ×2 (02:15→04:46)
--- NOTE | 2017-09-06 02:36 | Anesthesia Postoperative Note ---
- Date and Time Date: 09/06/17 Time: 01:20 - Status Patient Participated in Evaluation: Patient Participated in Person Vital Signs: Temperature 95.9 F L 09/06/17 01:45 Pulse Rate 114 H 09/06/17 02:00 Respiratory Rate 20 09/06/17 02:00 Blood Pressure 164/107 H 09/06/17 02:00 Pulse Oximetry 97 09/06/17 02:00 Respiratory Function: Airway Patent Cardiovascular Function: Regular Pulse EKG: Sinus Rhythm Mental Status: Alert and Oriented Pain Intensity: 3 Hydration: IV Infusing Complications During Recover: None Apparent - Follow-Up Instructions Instructions: Per Surgeon
[2017-09-06] MEDS: FentaNYL 250 MCG/5 ML INJECTION IVP PRN ×7 (04:21→21:54)
[2017-09-06] MEDS: KETOROLAC 30 MG/ML INJECTION IVP PRN ×3 (05:36→19:52)
[2017-09-06] MEDS ORDERED: SORE THROAT SPRAY 20ml PO PRN (05:55)
[2017-09-06] MEDS ORDERED: TPN - PHARMACY CONSULT MC ONE (10:27)
--- NOTE | 2017-09-06 11:24 | Pharmacy Consult-TPN/PPN ---
Pharmacy Consult-TPN/PPN - Laboratory Information Chemistry Turbidity < 20 (0-20) 09/06/17 05:02 Sodium 138 MEQ/L (134-144) 09/06/17 05:02 Potassium 4.3 MEQ/L (3.6-5) 09/06/17 05:02 Chloride 104 MEQ/L (98-107) 09/06/17 05:02 Carbon Dioxide 24 MEQ/L (22-30) 09/06/17 05:02 Anion Gap 10 MEQ/L (5-15) 09/06/17 05:02 BUN 6.0 MG/DL (7-17) L D 09/06/17 05:02 Creatinine 0.6 MG/DL (0.7-1.2) L 09/06/17 05:02 GFR Calculation 105 09/06/17 05:02 BUN/Creatinine Ratio 10 RATIO (6-26) 09/06/17 05:02 Glucose 165 MG/DL (65-110) H 09/06/17 05:02 Glucometer 146 mg/dL (65-110) 09/06/17 05:54 Calculated Osmolality 268 MOSM/KG (261-280) 09/06/17 05:02 Calcium 8.3 MG/DL (8.4-10.2) L 09/06/17 05:02 Phosphorus 2.9 MG/DL (2.5-4.5) 09/04/17 04:03 Magnesium 2.2 MG/DL (1.6-2.3) 09/04/17 04:03 Total Bilirubin 0.40 MG/DL (0.20-1.30) 09/02/17 00:32 Icterus Index < 2 (0-7) 09/06/17 05:02 AST 23 U/L (14-36) 09/02/17 00:32 ALT 44 U/L (9-52) 09/02/17 00:32 Alkaline Phosphatase 87 U/L (38-126) 09/02/17 00:32 Troponin I < 0.012 ng/ml (0-0.12) 09/03/17 05:55 Total Protein 7.6 G/DL (6.3-8.2) 09/02/17 00:32 Albumin 3.2 G/DL (3.5-5.0) L 09/04/17 04:03 Globulin 2.9 G/DL (2.4-3.6) 09/02/17 00:32 Albumin/Globulin Ratio 1.6 RATIO (1.1-2.2) 09/02/17 00:32 Lipase 132 U/L (23-300) 09/02/17 00:32 Plasma Lactate 1.1 MMOL/L (0.6-2.2) 09/03/17 02:39 Specimen Hemolysis 21 (0-25) 09/06/17 05:02 Intake and Output 09/05/17 09/06/17 09/07/17 06:59 06:59 06:59 Intake Total 2120.000 / 2120.000 4490 / 4490 Output Total 800 / 800 3150 / 3150 Balance 1320.000 / 2701.689 2237 / 1340 Weight 89.3 kg 88.7 kg 87.9 kg Intake: IV 2120.000 / 2120.000 4490 / 4490 Levofloxacin Pb 500 mg In 100 100 / 100 100 / 100 ml @ 100 mls/hr IV Q24H [facility] Rx# :[id number] Lr 1,000 ml @ 50 mls/hr IV . 3000 / 3000 Q20H [facility] Rx#:[id number] MetroNIDAZOLE PB 250 mg In 50 100 / 100 ml @ 100 mls/hr IV ONE TIME [facility] Rx#:[id number] Potassium Chloride Inj 20 meq 2020.000 / 2020.000 1290 / 1290 In D5ns 1,000 ml @ 100 mls/hr IV .Q10H6M [facility] Rx#:[id number] Output: Urine 800 / 800 1300 / 1300 Emesis 650 / 650 Urine Amount (Catheter) 1200 / 1200 2-way Urethral 650 / 650 Other: Urine Appearance Cloudy Clear 2-way Urethral Clear Urine Color Light Maritza Dark Yellow 2-way Urethral Yellow Urine Odor Normal Normal Emesis Description Bile # Voids 2 - Consult Information Order noted by Dr Drake to begin IV nutrition on Ms Combs, who is post-op small bowel resection. Due to nationwide shortages we willl begin a standard PPN with lipids. This will supply around 1350 kcal/day. Will continue to monitor. Thank you.
--- NOTE | 2017-09-06 15:20 | Fluoroscopy Report ---
Indication:picc insertion Procedure:FL guided PICC insertion PICC LINE INSERTION: After discussing the details of the procedure, including risks, the patient wished to proceed. Informed consent was obtained. A preprocedural timeout was performed to confirm the correct patient and procedure. Sterile technique, local Xylocaine anesthesia, and sonographic guidance was used to access the left basilic vein. A .018 guidewire was advanced into the vein. Then using fluoroscopic guidance, a single lumen 4 Fr PICC line was advanced with the tip placed within the SVC. Catheter length is 43 cm. A fluoroscopic image was then taken and archived. I was able to aspirate blood and inject freely through the port. The procedure was completed without complication. Following this, the patient was taken back to her room on the surgical floor stable condition.. Impression:Successful left-sided PICC line placement with tip residing near the cavoatrial junction. Fluoroscopy dose: 10.48 mGy (Cumulative air kerma) Ben Marrufo RPA/DELONTE performed this under my personal supervision. .
[2017-09-06] MEDS: MULTI-VIT INFUSION 10 ML, MULTI-TRACE ELEMENTS 1 ML in PPN - STANDARD FORMULA 2,000 ML IV SCH (15:23)
[2017-09-06] MEDS ORDERED: FAT EMULSION 20% 500 ML BAG IV SCH (16:00)
[2017-09-06] MEDS ORDERED: MORPHINE SULFATE 10 MG SYRINGE IV PRN (16:09)
[2017-09-06] MEDS: LEVOFLOXACIN PB 500 MG/100 ML BAG IV SCH (17:24)
--- NOTE | 2017-09-06 17:29 | Progress Note ---
DATE OF VISIT 09/05/2017 REASON FOR VISIT Follow bowel obstruction. SUBJECTIVE Lashell says that she is feeling miserable. She has had increased abdominal pain with her Gastrografin small bowel follow-through. She has also had some vomiting. She feels miserable enough that she wants to consider surgical management of her bowel obstruction. OBJECTIVE VITAL SIGNS: Temperature 99.4, pulse 76, blood pressure 150/78, respiratory rate 16, oxygen saturation 97% on room air. GENERAL: The patient is awake and alert. She is in moderate distress secondary to pain. ABDOMEN: Soft, tender diffusely with slightly increased tenderness in the left upper quadrant. No guarding is noted. She does have some mild distention. IMAGING Small bowel follow-through showed delayed intestinal transit time of greater than six hours. I did discuss the report with Dr. Montilla of Radiology. IMPRESSION 1. Partial small bowel obstruction secondary to intraabdominal adhesions. Her obstruction does not appear to be resolving with conservative management. 2. Obesity with BMI of 37. PLAN 1. I did discuss the small bowel follow-through results with Lashell. Given the entire situation with worsening symptoms, significantly delayed transit time , and length of time from initiation of conservative management, I feel that Lashell will most likely need operative management of her small bowel obstruction. 2. Following discussion of the exploratory laparotomy with possible small bowel resection, Lashell did wish to proceed with operative management this evening. PATIENT EDUCATION The details, risks and benefits of exploratory laparotomy were discussed with the patient. The discussion included but was not limited to bleeding, infection , enterocutaneous fistula, anastomotic leak, possible need for bowel resection, injury to intraabdominal contents, possible future scar formation leading to future bowel obstruction which may be worse than her current scar tissue, and complications of anesthesia. She agreed to proceed with surgery today. JITENDRA
--- NOTE | 2017-09-06 17:40 | Progress Note ---
- Date 09/06/17 Subjective: Patient resting comfortably. Having some pain post-op but says she is more comfortable. She underwent adhesiolysis, segmental small bowel resection. Objective Vital signs: Temperature 98.7 F 09/06/17 15:36 Pulse Rate 92 09/06/17 15:36 Respiratory Rate 16 09/06/17 15:36 Blood Pressure 131/69 09/06/17 15:36 Pulse Oximetry 95 09/06/17 15:36 Height/Weight/BMI: Height 5 ft 1 in Weight 87.9 kg Body Mass Index 36.5 - Constitutional Present: no acute distress, mild distress - Routine HEENT Exam Head: Present: normocephalic, atraumatic Eye: Present: EOMI, PERRL ENT: Present: mucous membranes moist - Routine Respiratory Exam Present: CTA bilaterally - Routine Cardiovascular Exam Present: RRR - Routine Abdominal Exam Present: tenderness - Routine Extremities Exam Present: no edema - Routine Neurological Exam Present: alert, oriented X3 Results - Labs CBC & Chem 7: 09/06/17 05:02 09/06/17 10:46 Assessment and Plan (1) Small bowel obstruction Current visit: Yes Status: Deleted Assessment and Plan: Impression Abdominal pain SBO Hx extensive abdominal surgeries Recent sinusitis Leukocytosis Dehydration Diabetes mellitus History nephrolithiasis Plan - 09/06/17 s/p ex lap, adhesiolysis and segmental small bowel resection. Now has NGT in. Patient remains npo. d/w Dr. Davis. Expect post-op ileus. Will start peripheral nutrition. Patient willing to try morphine. It was listed as an allergy d/t n/v. Toradol remains available. Renal function stable. Continue supportive cares and encourage activity and walking. Completed Levaquin IV for sinusitis - initiated 09/02/17 x 5 days. Blood pressure fairly well controlled. Continue to hold oral medications. Continue to monitor daily labs. - Physician Narrative Narrative: Date: 09/06/17 Time: 1737 Hospital Course Summary Disclaimer: The visit summary below is not to be considered part of the above Progress Note. Hospital Course: 09/03 Patient admitted for management of partial SBO. KUB c/w distal partial SBO. Toradol increased. Phenergan added to anti-emetics. Suppository given. Repeat KUB in the morning. Dr. Davis consulted and absence of Dr. Mendoza. Monitor renal function on toradol. Encourage activity. Levaquin IV continued for sinusitis. BP OK with oral meds held. Blood sugars OK. Plan - 09/05/17 No significant change. Gastrograftin given this AM without results. KUB revealed no significant change. Patient resistant to surgical option as she has had multiple surgeries which she believes resulted in the scar tissue causing her repetitive SBO. Continue with conservative treatment. Dulcolax suppositories now scheduled Q6H. Pain fairly well controlled. Continue toradol for pain control. Renal function stable. Maintain NPO diet. Continue D5NS with KCl for hydration. Continue supportive cares and encourage activity and walking. Continue Levaquin IV for sinusitis - initiated 09/02/17 x 5 days. Blood pressure fairly well controlled. Continue to hold oral medications. Continue to monitor daily labs. 09/06 s/p ex lap, adhesiolysis and segmental small bowel resection. Now has NGT in. Patient remains npo. d/w Dr. Davis. Expect post-op ileus. Will start peripheral nutrition. Patient willing to try morphine. It was listed as an allergy d/t n/v. Toradol remains available. Renal function stable. Continue supportive cares and encourage activity and walking. Completed Levaquin IV for sinusitis - initiated 09/02/17 x 5 days. Blood pressure fairly well controlled. Continue to hold oral medications. Continue to monitor daily labs.
[2017-09-06] MEDS ORDERED: MORPHINE SULFATE 4mg INJECTION IVP PRN (18:00)
[2017-09-07] MEDS: FentaNYL 250 MCG/5 ML INJECTION IVP PRN ×4 (00:42→20:28)
[2017-09-07] MEDS: KETOROLAC 30 MG/ML INJECTION IVP PRN ×3 (05:25→17:34)
--- NOTE | 2017-09-07 07:32 | Pharmacy Consult-TPN/PPN ---
Pharmacy Consult-TPN/PPN - Laboratory Information Chemistry Turbidity < 20 (0-20) 09/07/17 04:46 Sodium 134 MEQ/L (134-144) 09/07/17 04:46 Potassium 3.9 MEQ/L (3.6-5) 09/07/17 04:46 Chloride 104 MEQ/L (98-107) 09/07/17 04:46 Carbon Dioxide 23 MEQ/L (22-30) 09/07/17 04:46 Anion Gap 7 MEQ/L (5-15) 09/07/17 04:46 BUN 13.0 MG/DL (7-17) D 09/07/17 04:46 Creatinine 0.5 mg/dL (0.7-1.2) L D 09/07/17 04:46 GFR Calculation 130 09/07/17 04:46 BUN/Creatinine Ratio 26 RATIO (6-26) 09/07/17 04:46 Glucose 117 MG/DL (65-110) H 09/07/17 04:46 Glucometer 146 mg/dL (65-110) 09/07/17 06:21 Calculated Osmolality 259 MOSM/KG (261-280) L 09/07/17 04:46 Calcium 7.7 MG/DL (8.4-10.2) L 09/07/17 04:46 Phosphorus 3.8 MG/DL (2.5-4.5) 09/06/17 10:46 Magnesium 2.0 MG/DL (1.6-2.3) 09/06/17 10:46 Total Bilirubin 0.50 MG/DL (0.20-1.30) 09/06/17 10:46 Icterus Index < 2 (0-7) 09/07/17 04:46 AST 44 U/L (14-36) H 09/06/17 10:46 ALT 83 U/L (9-52) H 09/06/17 10:46 Alkaline Phosphatase 58 U/L (38-126) 09/06/17 10:46 Troponin I < 0.012 ng/ml (0-0.12) 09/03/17 05:55 Total Protein 5.8 G/DL (6.3-8.2) L 09/06/17 10:46 Albumin 3.2 G/DL (3.5-5.0) L 09/06/17 10:46 Globulin 2.6 G/DL (2.4-3.6) 09/06/17 10:46 Albumin/Globulin Ratio 1.2 RATIO (1.1-2.2) 09/06/17 10:46 Lipase 132 U/L (23-300) 09/02/17 00:32 Plasma Lactate 1.1 MMOL/L (0.6-2.2) 09/03/17 02:39 Specimen Hemolysis 32 (0-25) H 09/07/17 04:46 Intake and Output 09/06/17 09/07/17 09/08/17 06:59 06:59 06:59 Intake Total 4490 / 4490 1586.667 / 1586.667 Output Total 3150 / 3150 1100 / 1100 Balance 1340 / 1340 486.667 / 486.667 Weight 88.7 kg 87.9 kg Intake: IV 4490 / 4490 1586.667 / 1586.667 Levofloxacin Pb 500 mg In 100 100 / 100 100 / 100 ml @ 100 mls/hr IV Q24H [facility] Rx# :[id number] Lr 1,000 ml @ 50 mls/hr IV . 3000 / 3000 Q20H [facility] Rx#:[id number] MetroNIDAZOLE PB 250 mg In 50 100 / 100 ml @ 100 mls/hr IV ONE TIME [facility] Rx#:[id number] Potassium Chloride Inj 20 meq 1290 / 1290 1486.667 / 1486.667 In D5ns 1,000 ml @ 20 mls/hr IV .Q24H [facility] Rx#:[id number] Output: Urine 1300 / 1300 Emesis 650 / 650 Urine Amount (Catheter) 1200 / 1200 950 / 950 2-way Urethral 650 / 650 Gastric Drainage 150 / 150 Left Nare 150 / 150 Other: Urine Appearance Clear Clear 2-way Urethral Clear Urine Color Dark Yellow Dark Yellow 2-way Urethral Yellow Urine Odor Normal Normal Emesis Description Bile - Consult Information We will add 40mEq of NaCl and 20mEq of KCl to each standard PPN bag starting with next bag around 1400. We will continue D5NS with 20mEq KCl running at 20mL per hour for additional sodium and potassium. Thanks
[2017-09-07] MEDS: ENOXAPARIN 40 MG/0.4 ML INJECTION SQ SCH (09:58)
--- NOTE | 2017-09-07 11:06 | Operative Note ---
DATE OF OPERATION 09/05/2017 SURGEON Orlando Davis MD PREOPERATIVE DIAGNOSES 1. Partial small bowel obstruction - likely secondary to adhesions. 2. Obesity with BMI of 37. POSTOPERATIVE DIAGNOSES 1. Extensive intraabdominal adhesions. 2. Partial small bowel obstruction related to intraabdominal adhesions with a transition zone in the pelvis. - high-grade 3. Expected serosal tears in the small bowel incidental to adhesiolysis. PROCEDURE 1. Exploratory laparotomy. 2. Extensive lysis of adhesions totaling 150 minutes. 3. Segmental small bowel resection with qdmo-pr-kina, functional end-to-end anastomosis. ANESTHESIA General. ASA Class 3 INDICATIONS The patient is a 51-year-old female who has an extensive abdominal surgical history. She had been hospitalized for bowel obstructions in August of 2015, 2016, and 2017. With her most recent bowel obstruction her symptoms were not improving or responding to conservative management. She had a small bowel series performed earlier today that showed a significantly delayed transit time. Given the overall situation it was felt that she needed to undergo exploratory laparotomy. FINDINGS There were extensive intraabdominal adhesions with adhesions being most prominent in the pelvis. There were also interloop adhesions. There were omental adhesions to the undersurface of her prior midline incision. As an expected result of the extensive adhesiolysis, there were some serosal tears and apertures of the mesentery incidental to the adhesiolysis. DESCRIPTION OF PROCEDURE After informed consent was obtained the patient was taken to the operating room and placed in the supine position. General anesthesia was administered by the anesthesia team. The patient's abdomen was then prepped and draped in usual sterile fashion. The patient's prior lower midline incision was then excised with a 10- blade scalpel. Electrocautery was used to dissect down into the subcutaneous layer. The subcutaneous tissue was divided with cautery. The patient's prior scar from the lower midline was excised and was discarded. Dissection continued up above the umbilicus. The base of the umbilicus was divided with cautery to free the fascial edges. The fascia in the midline above the umbilicus was divided with cautery. The peritoneum was then entered with a right angle clamp and the fascial incision was opened slightly until a finger could be inserted. Additional blunt dissection was performed along the undersurface of the fascia prior to opening the fascia at the midline with cautery. The patient had prior Prolene suture in position and as much of this that was visualized was removed. The fascial incision was carried down to the region near the pubic symphysis. Extensive adhesiolysis then had to be performed. There were adhesions of the omentum to the undersurface of the vertical incision extending more cephalad. There were also adhesions between the small bowel and the omentum. The serosal adhesions of the small bowel were most focused in the pelvis. Gradual traction on the bowel to expose attachments had to be performed. In areas with dense scar tissue the adhesions were divided with Metzenbaum scissors. Where the scar was more lengthy the tissue was divided with cautery. There were adhesions to the pelvic sidewall as well as the posterior pelvis fixating many of the small bowel loops in the pelvis. Gradually these were able to be divided with a combination of blunt dissection, electrocautery, and sharp dissection. Once the bowel loops were freed from the pelvis the process of lysis of the interloop adhesions was then begun. The small bowel was run from the ligament of Treitz to the terminal ileum and all of the interloop adhesions were divided with scissors. There were two apertures created in the mesentery in the areas of dense adhesions. Hemostasis along the edges of the tears of the mesentery was achieved with [id number] stitches of 3-0 Vicryl suture. The small bowel was reinspected. A total of 150 minutes was used for the adhesiolysis. After the completion of adhesiolysis the bowel was inspected and remaining presence of the muscular layers. It was felt that imbrication of the area could result in narrowing of the lumen of the bowel. There was an area that had been at the area of prior transition that showed some venous congestion of the serosa of the bowel. This was in the vicinity of a larger serosal tear. Because of this and the location of apertures in the mesentery, it was felt that a segmental small bowel resection should be performed to include the area of venous compromise at the affected serosal injury location. A window was made in the mesentery proximal and distal to the segment of concern. The bowel was divided with a linear cutting stapler. The mesentery was then divided between clamps and the edges were ligated with 0-Vicryl ties. The proximal bowel limb was inspected and had some scarring of the serosa that would have been included in the stapled anastomosis. Therefore, an additional 5 cm of small bowel was resected with another firing of the stapler. The total length of small bowel resected was approximately 25 cm. The resected bowel was then sent to Pathology. The abdomen was then copiously irrigated with saline and suctioned free of fluid. Hemostasis was assured. There had been some areas during adhesiolysis where there was bleeding from vessels of the omentum. These had been ligated with 3-0 Vicryl ties and clamps. There was also a tongue of omentum that was very thin that was resected but was not sent to Pathology. With hemostasis assured, the anastomosis was created. The corners of the staple line were cut off using scissors and one limb of the stapler was placed into each bowel segment. The stapler was fired along the antimesenteric portions of the bowel loops. It was then removed. The staple lines were offset and the common enterotomy was closed with a firing of a [id number] stapler. 3 -0 Vicryl stitches were placed at the crotch of the anastomosis to help prevent unzippering of the suture line. There was an area of bleeding along the suture line of the common enterotomy that was covered with a Lembert stitch that did allow for hemostasis. The anastomosis was then placed in the left lower quadrant in what appeared to be a near anatomic location. The area beneath the fascia was covered with the remainder of the omentum that was in the region. The patient's NG tube was palpated and was confirmed to be in the stomach. It was advanced to a good position and then secured in position by the anesthesia team. Prior to construction of the anastomosis an James Wound Protector had been placed to protect the subcutaneous layer. I did take off my outer surgical gloves prior to removal of the James Wound Protector. The entire surgical team then changed gown and gloves and the abdomen was redraped with additional sterile drapes. The fascia was closed with running #1 Prolene suture. The umbilicus was tacked back to the level of the fascia with 3 -0 Vicryl suture. Hemostasis within the subcutaneous space was achieved with electrocautery. The skin was then closed with leidy. Sterile dressings were applied. [facility]
--- NOTE | 2017-09-07 13:58 | Progress Note ---
DATE OF VISIT 09/06/2017 REASON FOR VISIT Postoperative followup. SUBJECTIVE Lashell has done fairly well today other than pain control. She still feels like the fentanyl is not particularly helpful. She did have a PICC line placed and TPN initiated following discussion by phone between myself and Dr. Drake this morning. OBJECTIVE VITAL SIGNS: Afebrile with stable vitals on room air. GENERAL: The patient is awake and alert. She is in mild distress secondary to pain. ABDOMEN: Soft, appropriately tender. Her bandage remains in place and was not removed today. IMPRESSION 1. Postop day 0 status post exploratory laparotomy with extensive lysis of adhesions, and segmental small bowel resection - appropriate clinical progress except for poor pain control. 2. Listed morphine allergy. However, the patient stated this was only vomiting at the time of a section while the dose was being given. PLAN 1. PICC line and TPN have already been initiated. 2. I had a discussion with Lashell about her morphine allergy. She was not sure that she really had an allergy even at the time of her section. She was willing to try taking morphine for pain control while she is in the hospital and being monitored for adverse reactions. If she tolerates this well I will order a morphine CONCRETE CURER. 3. Continue NG tube and follow outputs since she had significant small bowel distention and significant outputs at the time of her procedure. JITENDRA
[2017-09-07] MEDS: ACETAMINOPHEN 500 MG TABLET PO SCH ×2 (14:14→20:28)
[2017-09-07] MEDS: MULTI-VIT INFUSION 10 ML, MULTI-TRACE ELEMENTS 1 ML, SODIUM CHLORIDE CONC 40 MEQ, POTA... IV SCH (14:15)
--- NOTE | 2017-09-07 14:16 | Progress Note ---
- Date 09/07/17 Subjective: Lashell is seen today in follow up. She is excited to have NGT removed, and reports that pain is improving. She is "just waiting for everything to wake up and start working." She is in good spirits. Denies acute needs or concerns. Objective Vital signs: Temperature 99.4 F 09/07/17 12:00 Pulse Rate 86 09/07/17 12:00 Respiratory Rate 14 09/07/17 12:00 Blood Pressure 137/71 09/07/17 12:00 Pulse Oximetry 95 09/07/17 12:00 Height/Weight/BMI: Height 1.55 m Weight 88.1 kg Body Mass Index 36.5 - Constitutional Present: no acute distress, cooperative - Routine HEENT Exam Head: Present: normocephalic, atraumatic Eye: Present: EOMI, PERRL ENT: Present: mucous membranes moist - Routine Respiratory Exam Present: CTA bilaterally. Absent: dyspnea, rales, rhonchi, crackles - Routine Cardiovascular Exam Present: RRR, S1, S2, no murmur - Routine Abdominal Exam Present: soft, tenderness, distended. Absent: normoactive bowel sounds ( Minimal bowel sounds), firm - Routine Extremities Exam Present: no edema, full ROM - Routine Back/Spine/Pelvis Exam Back/Spine: Present: full ROM - Routine Musculoskeletal Exam Musculoskeletal: Present: normal strength, moving extremities well - Routine Skin Exam Present: intact, dry, warm - Routine Neurological Exam Present: alert, oriented X3, moving all extremities - Routine Psychiatric Exam Present: normal affect, normal thought process, cooperative, good insight Results - Labs CBC & Chem 7: 09/06/17 05:02 09/07/17 04:46 Assessment and Plan (1) Small bowel obstruction Current visit: Yes Status: Deleted Assessment and Plan: Impression Abdominal pain SBO Hx extensive abdominal surgeries Recent sinusitis Leukocytosis Dehydration Diabetes mellitus History nephrolithiasis Plan - 09/07/17 s/p ex lap, extensive adhesiolysis and segmental small bowel resection. POD #1 NGT out Patient remains npo- TPN. Patient willing to try morphine (dilaudid shortage). prn fentanyl. Continue supportive cares and encourage activity and walking. Completed Levaquin IV for sinusitis - initiated 09/02/17 x 5 days. Blood pressure fairly well controlled. Continue to hold oral medications. Continue to monitor daily labs. Some leukocytosis, bandemia; very low-grade fever- push I.S., activity, and monitor. Hold off on abx for now. does not look septic at this time. Addendum:Seen and examined patient on same day as the above note. Agree with history, physical, assessment and plan. Comprehensive physical findings correlate to the above note. Subjective: only complaint is that she desperately wants the nasogastric tube out. Objective: no apparent distress. Lung de luna clear bilaterally to auscultation. Abdomen has occasional but sparse bowel sounds. Assessment and plan: agree with above. Small bowel obstruction appears to be resolving. Patient is on partial parenteral nutrition. Agree to from a medical standpoint the nasogastric tube may be ready to be removed if clamped she does not develop any further nausea. There is only a small amount of output in the NG tube at this time. Surgery to determine her fitness for removal of nasogastric tube but will clamp until she is scene or becomes nauseated. Documented on [employer] speech to text. Efforts to correct speech recognition errors performed, but variation may exist DVT Prophylaxis: SCD's, Lovenox Resuscitation Status: Full Code - Physician Narrative Narrative: Date: 09/07/17 Time: 1413 Hospital Course Summary Disclaimer: The visit summary below is not to be considered part of the above Progress Note. Hospital Course: 09/03 Patient admitted for management of partial SBO. KUB c/w distal partial SBO. Toradol increased. Phenergan added to anti-emetics. Suppository given. Repeat KUB in the morning. Dr. Davis consulted and absence of Dr. Mendoza. Monitor renal function on toradol. Encourage activity. Levaquin IV continued for sinusitis. BP OK with oral meds held. Blood sugars OK. Plan - 09/05/17 No significant change. Gastrograftin given this AM without results. KUB revealed no significant change. Patient resistant to surgical option as she has had multiple surgeries which she believes resulted in the scar tissue causing her repetitive SBO. Continue with conservative treatment. Dulcolax suppositories now scheduled Q6H. Pain fairly well controlled. Continue toradol for pain control. Renal function stable. Maintain NPO diet. Continue D5NS with KCl for hydration. Continue supportive cares and encourage activity and walking. Continue Levaquin IV for sinusitis - initiated 2/26/18 x 5 days. Blood pressure fairly well controlled. Continue to hold oral medications. Continue to monitor daily labs. 09/06 s/p ex lap, adhesiolysis and segmental small bowel resection. Now has NGT in. Patient remains npo. d/w Dr. Davis. Expect post-op ileus. Will start peripheral nutrition. Patient willing to try morphine. It was listed as an allergy d/t n/v. Toradol remains available. Renal function stable. Continue supportive cares and encourage activity and walking. Completed Levaquin IV for sinusitis - initiated 09/02/17 x 5 days. Blood pressure fairly well controlled. Continue to hold oral medications. Continue to monitor daily labs. Plan - 09/07/17 s/p ex lap, extensive adhesiolysis and segmental small bowel resection. POD #1 NGT out Patient remains npo- TPN. Patient willing to try morphine (dilaudid shortage). prn fentanyl. Continue supportive cares and encourage activity and walking. Completed Levaquin IV for sinusitis - initiated 09/02/17 x 5 days. Blood pressure fairly well controlled. Continue to hold oral medications. Continue to monitor daily labs. Some leukocytosis, bandemia; very low-grade fever- push I.S., activity, and monitor. Hold off on abx for now. does not look septic at this time.
[2017-09-07] MEDS: MULTI-VIT INFUSION 10 ML, MULTI-TRACE ELEMENTS 1 ML in PPN - STANDARD FORMULA 2,000 ML IV SCH (14:17)
--- NOTE | 2017-09-07 14:28 | Progress Note ---
DATE OF VISIT 09/07/2017 REASON FOR VISIT Postoperative followup. CARSON Lobo did try the morphine last night but had symptoms almost immediately after receiving the medication so she did not want to receive any future doses. Her pain control has been adequate with Toradol and fentanyl. She has been ambulating in the halls. She would like her NG tube removed. PHYSICAL EXAM VITAL SIGNS: Afebrile with stable vitals on room air. GENERAL: The patient is awake and alert. She is in no acute distress. ABDOMEN: Soft, appropriately tender. Her dressing remains in position. NG tube had minimal output yesterday. IMPRESSION Postop day #1 status post exploratory laparotomy with extensive lysis of adhesions, and segmental small bowel resection - appropriate clinical progress. PLAN 1. Discontinue NG tube. 2. Allow sips and chips. 3. Discontinue Carter catheter this afternoon. 4. I will add scheduled Tylenol to try to get her away from some of the need for Toradol since she has been using it long-term. 5. Continue TPN. MTDD
[2017-09-07] MEDS: FAT EMULSION 20% 500 ML IV SCH (15:44)
[2017-09-07] MEDS: POTASSIUM CHLORIDE INJ 20 MEQ in D5NS 1,000 ML IV SCH (17:33)
[2017-09-07] MEDS ORDERED: PANTOPRAZOLE 40 MG INJECTION IVP ONE (20:43)
[2017-09-08] MEDS: KETOROLAC 30 MG/ML INJECTION IVP PRN ×3 (02:04→21:54)
[2017-09-08] MEDS: FentaNYL 250 MCG/5 ML INJECTION IVP PRN (04:24)
[2017-09-08 04:41] VITALS: RESP 16
--- NOTE | 2017-09-08 07:58 | Pharmacy Consult-TPN/PPN ---
Pharmacy Consult-TPN/PPN - Laboratory Information Chemistry Turbidity < 20 (0-20) 09/08/17 04:20 Sodium 140 MEQ/L (134-144) D 09/08/17 04:20 Potassium 3.9 MEQ/L (3.6-5) 09/08/17 04:20 Chloride 104 MEQ/L (98-107) 09/08/17 04:20 Carbon Dioxide 28 MEQ/L (22-30) 09/08/17 04:20 Anion Gap 8 MEQ/L (5-15) 09/08/17 04:20 BUN 13.0 MG/DL (7-17) 09/08/17 04:20 Creatinine 0.6 mg/dL (0.7-1.2) L 09/08/17 04:20 GFR Calculation 105 09/08/17 04:20 BUN/Creatinine Ratio 22 RATIO (6-26) 09/08/17 04:20 Glucose 107 MG/DL (65-110) 09/08/17 04:20 Glucometer 116 mg/dL (65-110) 09/08/17 05:58 Calculated Osmolality 269 MOSM/KG (261-280) 09/08/17 04:20 Calcium 8.1 MG/DL (8.4-10.2) L 09/08/17 04:20 Phosphorus 3.8 MG/DL (2.5-4.5) 09/06/17 10:46 Magnesium 2.0 MG/DL (1.6-2.3) 09/06/17 10:46 Total Bilirubin 0.50 MG/DL (0.20-1.30) 09/06/17 10:46 Icterus Index < 2 (0-7) 09/08/17 04:20 AST 44 U/L (14-36) H 09/06/17 10:46 ALT 83 U/L (9-52) H 09/06/17 10:46 Alkaline Phosphatase 58 U/L (38-126) 09/06/17 10:46 Troponin I < 0.012 ng/ml (0-0.12) 09/03/17 05:55 Total Protein 5.8 G/DL (6.3-8.2) L 09/06/17 10:46 Albumin 3.2 G/DL (3.5-5.0) L 09/06/17 10:46 Globulin 2.6 G/DL (2.4-3.6) 09/06/17 10:46 Albumin/Globulin Ratio 1.2 RATIO (1.1-2.2) 09/06/17 10:46 Lipase 132 U/L (23-300) 09/02/17 00:32 Plasma Lactate 1.1 MMOL/L (0.6-2.2) 09/03/17 02:39 Specimen Hemolysis < 15 (0-25) 09/08/17 04:20 Intake and Output 09/07/17 09/08/17 09/09/17 06:59 06:59 06:59 Intake Total 1586.667 / 2583.618 3278.000 / 2864.000 Output Total 1100 / 1100 1540 / 1540 275 / 275 Balance 486.667 / 027.103 3645.000 / 1324.000 -275 / -275 Weight 87.9 kg 88.1 kg 88.7 kg Intake: IV 1586.667 / 8338.207 1786.000 / 2864.000 Fat Emulsion 20% 500 ml @ 50 500 / 500 mls/hr IV 1600 ADAM Rx#: [id number] Levofloxacin Pb 500 mg In 100 100 / 100 ml @ 100 mls/hr IV Q24H ADAM Rx# :[id number] Multi-Vit Infusion 10 ml Multi 1830.667 / 1830.667 -Trace Elements 1 ml In Ppn - Standard Formula 2,000 ml @ 80 mls/hr IV .Q24H ADAM Rx#: [id number] Potassium Chloride Inj 20 meq 1486.667 / 1486.667 533.333 / 533.333 In D5ns 1,000 ml @ 20 mls/hr IV .Q24H ADAM Rx#:[id number] Output: Urine 1540 / 1540 275 / 275 Urine Amount (Catheter) 950 / 950 Gastric Drainage 150 / 150 Left Nare 150 / 150 Other: Urine Appearance Clear Clear Clear Urine Color Dark Yellow Yellow Dark Yellow Urine Odor Normal Normal Normal - Consult Information We will continue the standard PPN formula with 40mEq of additional NaCl and 20mEq of KCl at the rate of 80mL per hour. Thanks
[2017-09-08] MEDS: ENOXAPARIN 40 MG/0.4 ML INJECTION SQ SCH (09:39)
[2017-09-08] MEDS: ACETAMINOPHEN 500 MG TABLET PO SCH ×3 (09:39→21:07)
[2017-09-08] MEDS: PANTOPRAZOLE 40 MG INJECTION IVP SCH (09:39)
[2017-09-08] MEDS: FAT EMULSION 20% 500 ML IV SCH ×2 (14:36→16:46)
[2017-09-08] MEDS: MULTI-VIT INFUSION 10 ML, MULTI-TRACE ELEMENTS 1 ML, SODIUM CHLORIDE CONC 40 MEQ, POTA... IV SCH (15:38)
[2017-09-08] MEDS: POTASSIUM CHLORIDE INJ 20 MEQ in D5NS 1,000 ML IV SCH (15:43)
--- NOTE | 2017-09-08 20:24 | Progress Note ---
- Date 09/08/17 Subjective: Patient is feeling pretty good today. No abdominal pain or nausea. Has been on partial parenteral nutrition but is feeling quite hungry at this time. We gave her a trial of Jell-O and this went without incident at noon. Objective Vital signs: Temperature 97.7 F 09/08/17 16:00 Pulse Rate 76 09/08/17 16:00 Respiratory Rate 16 09/08/17 16:00 Blood Pressure 142/75 H 09/08/17 16:00 Pulse Oximetry 96 09/08/17 16:00 Height/Weight/BMI: Height 5 ft 1 in Weight 88.7 kg Body Mass Index 36.5 - Constitutional Present: well nourished, well developed - Routine HEENT Exam Eye: Present: EOMI ENT: Present: mucous membranes moist, dentition normal - Routine Respiratory Exam Present: CTA bilaterally. Absent: wheezes - Routine Cardiovascular Exam Present: RRR. Absent: murmur - Routine Abdominal Exam Present: soft, normoactive bowel sounds, tenderness, non distended - Routine Extremities Exam Present: normal capillary refill - Routine Skin Exam Present: dry, warm - Routine Neurological Exam Present: alert, oriented X3, CN II-XII intact - Routine Lymphatic Exam Lymphatic: Absent: adenopathy - Routine Psychiatric Exam Present: normal affect Results - Labs CBC & Chem 7: 09/08/17 04:20 09/08/17 04:20 Assessment and Plan (1) Small bowel obstruction Current visit: Yes Status: Deleted Assessment and Plan: Impression Abdominal pain SBO Hx extensive abdominal surgeries Recent sinusitis Leukocytosis Dehydration Diabetes mellitus History nephrolithiasis Plan - 09/08/17 s/p ex lap, extensive adhesiolysis and segmental small bowel resection. NG tube out Patient transitioning from clear liquids to a full liquid supper. Will hold the parenteral nutrition at the end of this bag emphasize need to walk today but states that she is mobile 2 times already this morning continue oral medications labs today reassuring. Consider repeat for tomorrow Transitioning to oral diet and will attempt to discontinue the PPN - Physician Narrative Narrative: Date: 09/08/17 Time: 2018 Hospital Course Summary Disclaimer: The visit summary below is not to be considered part of the above Progress Note. Hospital Course: 09/03 Patient admitted for management of partial SBO. KUB c/w distal partial SBO. Toradol increased. Phenergan added to anti-emetics. Suppository given. Repeat KUB in the morning. Dr. Davis consulted and absence of Dr. Mendoza. Monitor renal function on toradol. Encourage activity. Levaquin IV continued for sinusitis. BP OK with oral meds held. Blood sugars OK. Plan - 09/05/17 No significant change. Gastrograftin given this AM without results. KUB revealed no significant change. Patient resistant to surgical option as she has had multiple surgeries which she believes resulted in the scar tissue causing her repetitive SBO. Continue with conservative treatment. Dulcolax suppositories now scheduled Q6H. Pain fairly well controlled. Continue toradol for pain control. Renal function stable. Maintain NPO diet. Continue D5NS with KCl for hydration. Continue supportive cares and encourage activity and walking. Continue Levaquin IV for sinusitis - initiated 09/02/17 x 5 days. Blood pressure fairly well controlled. Continue to hold oral medications. Continue to monitor daily labs. 3 s/p ex lap, adhesiolysis and segmental small bowel resection. Now has NGT in. Patient remains npo. d/w Dr. Davis. Expect post-op ileus. Will start peripheral nutrition. Patient willing to try morphine. It was listed as an allergy d/t n/v. Toradol remains available. Renal function stable. Continue supportive cares and encourage activity and walking. Completed Levaquin IV for sinusitis - initiated 09/02/17 x 5 days. Blood pressure fairly well controlled. Continue to hold oral medications. Continue to monitor daily labs. Plan - 09/07/17 s/p ex lap, extensive adhesiolysis and segmental small bowel resection. POD #1 NGT out Patient remains npo- TPN. Patient willing to try morphine (dilaudid shortage). prn fentanyl. Continue supportive cares and encourage activity and walking. Completed Levaquin IV for sinusitis - initiated 09/02/17 x 5 days. Blood pressure fairly well controlled. Continue to hold oral medications. Continue to monitor daily labs. Some leukocytosis, bandemia; very low-grade fever- push I.S., activity, and monitor. Hold off on abx for now. does not look septic at this time.
[2017-09-08] MEDS: PROMETHAZINE 25 MG INJECTION IVP PRN (22:02)
[2017-09-09] MEDS: KETOROLAC 30 MG/ML INJECTION IVP PRN (04:40)
--- NOTE | 2017-09-09 07:25 | Progress Note ---
DATE OF VISIT 09/08/2017 REASON FOR VISIT Postoperative followup. SUBJECTIVE Lashell feels like her abdominal pain is improving. She has not been using pain medicine recently. She continues to get up and ambulate well. She has not had any flatus yet. She had a JELL-O earlier and felt rather full. She has also been complaining of some acid reflux. OBJECTIVE VITAL SIGNS: Afebrile with stable vitals on room air. GENERAL: The patient is awake, alert, in no acute distress. ABDOMEN: Soft, appropriately tender. Her dressing was left in position. ASSESSMENT Postop day #2 status post exploratory laparotomy with extensive lysis of adhesions and segmental small bowel resection - improving appropriately. PLAN 1. I encouraged Lashell to limit her oral intake if she felt like she was developing distention or nausea. 2. Continue current pain control regimen. 3. Continue TPN since her ileus may be rather prolonged. 4. We will see how she is doing and see if she tolerates an advance to full liquid diet tomorrow. I would be hesitant to advance to a regular diet consistency until there is evidence of bowel function. MTDD
[2017-09-09] MEDS: ENOXAPARIN 40 MG/0.4 ML INJECTION SQ SCH (09:46)
[2017-09-09] MEDS: ACETAMINOPHEN 500 MG TABLET PO SCH ×3 (09:47→20:15)
[2017-09-09] MEDS: PANTOPRAZOLE 40 MG INJECTION IVP SCH (09:48)
[2017-09-09] MEDS: POTASSIUM CHLORIDE INJ 20 MEQ in D5NS 1,000 ML IV SCH (14:26)
--- NOTE | 2017-09-09 14:33 | Progress Note ---
- Date 09/09/17 Subjective: Patient is seen this morning before breakfast. She states she has had several loose bowel movements this morning. She had tomato soup and Jell-O last night and had some abdominal cramping following that. Had a little bit of nausea after supper but no vomiting. No nausea this morning. States her pain in her abdomen is currently 2/10. She is actually having a lot of back pain from the bed. Not much of an appetite. Objective Vital signs: Temperature 98.7 F 09/09/17 12:00 Pulse Rate 94 09/09/17 12:00 Respiratory Rate 16 09/09/17 12:00 Blood Pressure 160/66 H 09/09/17 12:00 Pulse Oximetry 95 09/09/17 12:00 Height/Weight/BMI: Height 1.55 m Weight 90.5 kg Body Mass Index 36.5 - Constitutional Present: no acute distress, well nourished, well developed - Routine HEENT Exam Head: Present: normocephalic, atraumatic - Routine Respiratory Exam Present: CTA bilaterally. Absent: wheezes - Routine Cardiovascular Exam Present: RRR, no murmur - Routine Abdominal Exam Present: soft, normoactive bowel sounds, tenderness (L side of abdomen (Pt states this is always where she has her pain)), non distended - Routine Extremities Exam Present: no edema, normal capillary refill - Routine Skin Exam Present: dry, warm - Routine Neurological Exam Present: alert, oriented X3 - Routine Lymphatic Exam Lymphatic: Absent: adenopathy - Routine Psychiatric Exam Present: normal affect, cooperative Results - Labs CBC & Chem 7: 09/08/17 04:20 09/09/17 04:30 Assessment and Plan (1) Small bowel obstruction Current visit: Yes Status: Deleted Assessment and Plan: Impression Abdominal pain - improving SBO - resolved following exploratory laparotomy with extensive lysis of adhesions and segmental small bowel resection with end-to-end anastomosis 09/05/17 Hx extensive abdominal surgeries Recent sinusitis Leukocytosis Dehydration History nephrolithiasis Plan -postop day #4 Patient transitioned from clear liquids to a full liquid supper. If she does well with breakfast and lunch could consider advancing further for supper. Hold Fat emulsion and PPN. Continue IVF's running at 20ml/hr for now as she is not drinking very much yet. Continue to walk frequently. Switch Protonix from IV to po. Consider DC in next several days if she does well with diet advance. Addendum hospitalist note: Seen and examined patient on same day as the above note. Agree with history, physical, assessment and plan. Comprehensive physical findings correlate to the above note. Subjective: had some initial nausea on soup but this improved rather quickly. Complains of a bit of transient roaming abdominal cramping. Objective: no apparent distress. Chest clear to auscultation bilaterally cardio vascular supposed to know adventitious murmurs rubs or gallops abdomen is soft with mild postoperative pain and active bowel sounds. Assessment and plan: small bowel obstruction resolved. Patient's diet has been advanced and appears to be doing well. Patient may be eligible to discharge quite soon based upon surgeries disposition when to transition for outpatient follow-up Documented on Dragon speech to text. Efforts to correct speech recognition errors performed, but variation may exist - Physician Narrative Narrative: Date: 09/09/17 Time: 1418 Hospital Course Summary Disclaimer: The visit summary below is not to be considered part of the above Progress Note. Hospital Course: 09/03 Patient admitted for management of partial SBO. KUB c/w distal partial SBO. Toradol increased. Phenergan added to anti-emetics. Suppository given. Repeat KUB in the morning. Dr. Davis consulted and absence of Dr. Mendoza. Monitor renal function on toradol. Encourage activity. Levaquin IV continued for sinusitis. BP OK with oral meds held. Blood sugars OK. 09/05/17 No significant change. Gastrograftin given this AM without results. KUB revealed no significant change. Pain fairly well controlled. Continue toradol for pain control. Renal function stable. Maintain NPO diet. Continue D5NS with KCl for hydration. Continue supportive cares and encourage activity and walking. Continue Levaquin IV for sinusitis - initiated 09/02/17 x 5 days. Blood pressure fairly well controlled. Continue to hold oral medications. Patient underwent exploratory laparotomy with extensive lysis of adhesions and segmental small bowel resection with end to end anastomosis by Dr. Davis 3/ - Post op Day #1 s/p ex lap, adhesiolysis and segmental small bowel resection. Now has NGT in. Patient remains npo. d/w Dr. Davis. Expect post-op ileus. Will start peripheral nutrition. Patient willing to try morphine. It was listed as an allergy d/t n/v. Toradol remains available. Renal function stable. Continue supportive cares and encourage activity and walking. Completed Levaquin IV for sinusitis - initiated 09/02/17 x 5 days. Blood pressure fairly well controlled. Continue to hold oral medications. Continue to monitor daily labs. 3 Post Op Day #2 s/p ex lap, extensive adhesiolysis and segmental small bowel resection. POD #1 NGT out Patient remains npo- TPN. Patient willing to try morphine (dilaudid shortage). prn fentanyl. Continue supportive cares and encourage activity and walking. Completed Levaquin IV for sinusitis - initiated 09/02/17 x 5 days. Blood pressure fairly well controlled. Continue to hold oral medications. Continue to monitor daily labs. Some leukocytosis, bandemia; very low-grade fever- push I.S., activity, and monitor. Hold off on abx for now. does not look septic at this time. 3 Post op day #3 s/p ex lap, extensive adhesiolysis and segmental small bowel resection. NG tube out Patient transitioning from clear liquids to a full liquid supper. Will hold the parenteral nutrition at the end of this bag emphasize need to walk today but states that she is mobile 2 times already this morning continue oral medications labs today reassuring. Consider repeat for tomorrow 09/09/17 postop day #4 Patient transitioned from clear liquids to a full liquid supper. If she does well with breakfast and lunch could consider advancing further for supper. Hold Fat emulsion and PPN. Continue IVF's running at 20ml/hr for now as she is not drinking very much yet. Continue to walk frequently. Switch Protonix from IV to po. Consider DC in next several days if she does well with diet advance.
--- NOTE | 2017-09-09 17:38 | Progress Note ---
DATE OF VISIT 09/09/2017 REASON FOR VISIT Postoperative followup. SUBJECTIVE Lashell has had multiple bowel movements at this point in time. Her abdominal pain is fairly well controlled and she has not been using pain medication lately. She simply reports feeling cold. She does complain of back pain that she relates to the hospital bed. SUBJECTIVE VITAL SIGNS: Afebrile with stable vitals on room air. ABDOMEN: Soft, appropriately tender. Her abdominal dressing was changed and showed some expected drainage on the surgical dressing. There is no evidence of infection and her incision is clean, dry and intact. IMPRESSION Postop day #3 status post exploratory laparotomy with extensive lysis of adhesions and segmental small bowel resection - improving with evidence of some bowel function. PLAN 1. I will advance her to a regular diet. 2. I think she needs to be followed until tomorrow to verify that her oral intake is adequate. 3. TPN has been discontinued. This may help with appetite. 4. Continue other care. MTDD
[2017-09-10] MEDS ORDERED: PANTOPRAZOLE 40 MG TABLET PO SCH (06:30)
[2017-09-10 07:23] VITALS: BP 153/78; PULSE 92; TEMP 98.3; O2SAT 97
[2017-09-10] MEDS: ENOXAPARIN 40 MG/0.4 ML INJECTION SQ SCH (08:05)
[2017-09-10] MEDS: ACETAMINOPHEN 500 MG TABLET PO SCH (08:06)
[2017-09-10] MEDS ORDERED: BENAZEPRIL 20 MG TABLET PO SCH (10:30)
[2017-09-10] MEDS ORDERED: NEOMYCIN/POLYMYXIN/BACITRACIN OINT PACKET TP ONE (11:05)
--- NOTE | 2017-09-10 11:21 | Discharge Summary ---
Discharge Information Date of admission: 09/02/17 04:17 Anticipated date of discharge: 09/10/17 Attending Physician: Tj Daily MD Primary care physician: Balwinder Chamberlain MD Consults: Consulting Provider: Orlando Davis - Discharge Diagnosis (1) Small bowel obstruction Status: Deleted Abdominal pain - improving SBO - resolved following exploratory laparotomy with extensive lysis of adhesions and segmental small bowel resection with end-to-end anastomosis 09/05/17 Hx extensive abdominal surgeries Recent sinusitis -completed tx with Levaquin Leukocytosis - improving Dehydration - resolved History nephrolithiasis - Procedures Procedures: DATE OF OPERATION 09/05/2017 SURGEON Orlando Davis MD PREOPERATIVE DIAGNOSES 1. Partial small bowel obstruction - likely secondary to adhesions. 2. Obesity with BMI of 37. POSTOPERATIVE DIAGNOSES 1. Extensive intraabdominal adhesions. 2. Partial small bowel obstruction related to intraabdominal adhesions with a transition zone in the pelvis. - high-grade 3. Expected serosal tears in the small bowel incidental to adhesiolysis. PROCEDURE 1. Exploratory laparotomy. 2. Extensive lysis of adhesions totaling 150 minutes. 3. Segmental small bowel resection with [id number], functional end-to-end anastomosis. FINDINGS There were extensive intraabdominal adhesions with adhesions being most prominent in the pelvis. There were also interloop adhesions. There were omental adhesions to the undersurface of her prior midline incision. As an expected result of the extensive adhesiolysis, there were some serosal tears and apertures of the mesentery incidental to the adhesiolysis. - Laboratory Labs: 09/10/17 04:39 09/09/17 04:30 Laboratory Tests 09/06/17 09/08/17 09/10/17 05:02 04:20 04:39 Hgb 15.7 12.6 D 11.5 L - Radiology Radiology: Date of Exam: 09/02/17 Indication: ABD Pain, Hx SBO CT abdomen pelvis w con: Findings: Heart size and lung bases are clear. Liver suggest diffuse fatty infiltration but no focal masses or biliary ductal dilatation noted. Gallbladder has been previously removed. Pancreas and both adrenals are unremarkable. Kidneys show no obstruction, masses or abnormal calcifications. Right kidney shows a couple of small benign-appearing cortical cyst measuring less than 1 cm. Retroperitoneum is unremarkable. Patient shows postoperative changes in the rectosigmoid region secondary to partial colectomy. Patient shows mild prominence of the distal small bowel with a potential transition zone in the pelvis. The finding however did not seem markedly changed over a prior study. No significant free air or free fluid is identified. Bladder contour is unremarkable. Patient's had previous hysterectomy. Reformatted imaging of the spine shows no acute bony abnormality. Impression: 1. Similar overall appearance to the prior study with postoperative changes some in the distal bowel without acute new findings. Patient had shown some slightly prominent loops of small bowel on the old study with a similar caliber and appearance on today's exam. 2. No acute upper abdominal findings identified. Date of Exam: 09/03/17 Indication: partial SBO PROCEDURE: PA view of the chest with supine and upright AP views of the abdomen FINDINGS: The lungs are clear. There is no abnormal airspace opacity, pleural effusion or pneumothorax identified. The heart size, pulmonary vasculature and mediastinum are within normal limits. No free air. Dilated small bowel loops centrally within the abdomen measuring just over 3 cm in diameter. There is scattered colonic gas present to the level of the rectum. Surgical anastomosis seen in the pelvis. Moderate stool in the right colon. Air-fluid levels noted on the upright view. IMPRESSION: 1. No acute cardiopulmonary abnormality. 2. Continued findings of a distal small bowel partial obstruction. History of Present Illness HPI: 51yo F with PMH of abdominal surgery and SBO presented to the emergency department with a chief complaint of generalized severe upper abdominal discomfort. Patient was at home when her symptoms began around 4 PM. She denies trauma, travel, poorly prepared food, or recent antibiotic use. She describes the pain as severe. Pain is sharp. No radiation. She does not note any exacerbating or remitting factors. Patient does note history of similar symptoms in the past with small bowel obstruction. She was at home when her symptoms began. Symptoms have been persistent in nature since onset. No other complaints or associated symptoms at this time. CT scan in ED showed a SBO. Patient admitted for supportive care. Patient refuses NGT placement at this time. Objective Vital signs: Temperature 98.3 F 09/10/17 07:22 Pulse Rate 92 09/10/17 07:22 Respiratory Rate 16 09/10/17 07:22 Blood Pressure 153/78 H 09/10/17 07:22 Pulse Oximetry 97 09/10/17 07:22 Height/Weight/BMI: Height 1.55 m Weight 88.9 kg Body Mass Index 36.5 - Constitutional Present: no acute distress, well nourished, well developed - Routine HEENT Exam Head: Present: normocephalic, atraumatic - Routine Respiratory Exam Present: CTA bilaterally. Absent: wheezes - Routine Cardiovascular Exam Present: RRR, no murmur - Routine Abdominal Exam Present: soft, tenderness (L side), non distended Comments: wound is currently dressed - Routine Extremities Exam Present: no edema, normal capillary refill - Routine Skin Exam Present: dry, warm - Routine Neurological Exam Present: alert, oriented X3 - Routine Lymphatic Exam Lymphatic: Absent: adenopathy - Routine Psychiatric Exam Present: normal affect, cooperative Hospital Course This is a general summary of the patient's hospital course. For more details refer to the complete medical record. Hospital course: 09/03 Patient admitted for management of partial SBO. KUB c/w distal partial SBO. Toradol increased. Phenergan added to anti-emetics. Suppository given. Repeat KUB in the morning. Dr. Davis consulted and absence of Dr. Mendoza. Monitor renal function on toradol. Encourage activity. Levaquin IV continued for sinusitis. BP OK with oral meds held. Blood sugars OK. 09/05/17 No significant change. Gastrograftin given this AM without results. KUB revealed no significant change. Pain fairly well controlled. Continue toradol for pain control. Renal function stable. Maintain NPO diet. Continue D5NS with KCl for hydration. Continue supportive cares and encourage activity and walking. Continue Levaquin IV for sinusitis - initiated 09/02/17 x 5 days. Blood pressure fairly well controlled. Continue to hold oral medications. Patient underwent exploratory laparotomy with extensive lysis of adhesions and segmental small bowel resection with end to end anastomosis by Dr. Davis 3/2 - Post op Day #1 s/p ex lap, adhesiolysis and segmental small bowel resection. Now has NGT in. Patient remains npo. d/w Dr. Davis. Expect post-op ileus. Will start peripheral nutrition. Patient willing to try morphine. It was listed as an allergy d/t n/v. Toradol remains available. Renal function stable. Continue supportive cares and encourage activity and walking. Completed Levaquin IV for sinusitis - initiated 09/02/17 x 5 days. Blood pressure fairly well controlled. Continue to hold oral medications. Continue to monitor daily labs. 3 Post Op Day #2 s/p ex lap, extensive adhesiolysis and segmental small bowel resection. POD #1 NGT out Patient remains npo- TPN. Patient willing to try morphine (dilaudid shortage). prn fentanyl. Continue supportive cares and encourage activity and walking. Completed Levaquin IV for sinusitis - initiated 09/02/17 x 5 days. Blood pressure fairly well controlled. Continue to hold oral medications. Continue to monitor daily labs. Some leukocytosis, bandemia; very low-grade fever- push I.S., activity, and monitor. Hold off on abx for now. does not look septic at this time. 3 Post op day #3 s/p ex lap, extensive adhesiolysis and segmental small bowel resection. NG tube out Patient transitioning from clear liquids to a full liquid supper. Will hold the parenteral nutrition at the end of this bag emphasize need to walk today but states that she is mobile 2 times already this morning continue oral medications labs today reassuring. Consider repeat for tomorrow 09/09/17 postop day #4 Patient transitioned from clear liquids to a full liquid supper. If she does well with breakfast and lunch could consider advancing further for supper. Hold Fat emulsion and PPN. Continue IVF's running at 20ml/hr for now as she is not drinking very much yet. Continue to walk frequently. Switch Protonix from IV to po. Consider DC in next several days if she does well with diet advance. 09/10/17 postop day #5 Patient will be discharged home today. Dr. Davis saw patient and agreed with plan to discharge. She is taking fluids well and is eating some. She continues to have loose stools. She's only taking Tylenol for pain. Had a lot of gas pains last night. Follow-up with Dr. Chamberlain on Saturday with a repeat CBC to follow her hemoglobin as it has steadily decreased since surgery. 15.7-->12.6-->11.5 Follow-up with Dr. Davis per his instructions Hospitalist addendum to discharge: Seen and examined patient on same day as the above note. Agree with summary, physical, assessment and plan. Comprehensive physical findings correlate to the above note. Subjective: patient is eaten and did have some initial cramping this morning but during the course the day no further issues Objective: no apparent distress alert oriented vital signs stable. Lungs are clear to auscultation bilaterally [place] was to abdomen has Periactin bowel sounds. No signs of infection to incision site. Assessment and plan: discharge home with follow-up in approximately one week with Dr. Julien Documented on eBrevia speech to text. Efforts to correct speech recognition errors performed, but variation may exist Time spent with patient: discharge greater than 30 minutes Resuscitation Status: Full Code Discharge Plan - Discharge Disposition Discharge Date: 09/10/17 Disposition: 01 Discharged Home, Self-Care *Condition: Improved Reason For Visit (Visit label in EMR): SBO - Discharge Medications *Discharge Medications: Continue Estrogens, Conjugated [Premarin] 0.625 mg PO DAILY #0 benazepril 5 mg tablet 20 mg PO DAILY tab canagliflozin 100 mg tablet 300 mg PO QAM Bystolic (nebivolol) 5 mg tablet 5 mg PO DAILY tab Discontinued predniSONE [Prednisone] 20 mg PO DAILY Levofloxacin [Levaquin] 500 mg PO DAILY - Discharge Packet/Instructions *Diet: as tolerated *Activity: as tolerated *Pain Management/Treatment: Tylenol as needed *Wound Care: per Dr. Davis *Expected Signs/Symptoms: continued improvement in pain *Notify Physician if: You have recurrence of abdominal pain, nausea/vomiting, or fever *During Business Hours Contact: Dr Chamberlain's office *After Business Hours Contact: [facility] and have your physician paged *Pending Lab/Results: No Pending Lab - Referrals/Follow Up *Referrals/Follow Up: Balwinder Chamberlain MD [Family Provider] - 3 Days (lab on Saturday09/13/17 (CBC to follow HGB) at Dr. Malcolm's office. Send to Sherice Chamberlain. Appointment on at 11:15 am, check in at 11:00 am.) Orlando Davis MD [Physician] - 2 Weeks () - Patient Handouts Patient Handouts: Bowel Resection (IP) - Dismissal Complete Discharge Instructions are:: Complete Physician Narrative - Narrative Attestation Narrative: Date: 09/10/17 Time: 7074
--- NOTE | 2017-09-10 18:47 | Progress Note ---
DATE OF VISIT 09/10/2017 REASON FOR VISIT Postoperative followup. SUBJECTIVE Lashell has been doing well. She has been tolerating a regular diet. She does say that she has been drinking well and has been refilling her own water glass so the nursing estimates of her oral intake have been low. OBJECTIVE VITAL SIGNS: Afebrile with stable vitals on room air. GENERAL: The patient is awake, alert, in no acute distress. ABDOMEN: Soft, appropriately tender. Her bandage was changed and she had some serous drainage along the lower aspect of her incision but there was no evidence of infection. IMPRESSION Status post exploratory laparotomy with extensive lysis of adhesions and segmental small bowel resection - doing well. PLAN 1. I do think that Lashell is ready for dismissal from the hospital. 2. I will enter my discharge instructions related to her surgery into the discharge plan. Instructions were reviewed with the patient. JITENDRA
== END 2017-09-10 14:32 | disposition home or self-care (01) | DRG 331 ==
LOC: ED 00:11 → SUATTDRO 04:17 → SRG 04:17
PROVIDERS: ADMIT Internal Medicine; ATTEND Family Medicine